=== PATIENT | female | born 1950 | race Caucasian/White ===

== ENCOUNTER 2020-08-04 08:11 | Outpatient (REF) | payer MEDICARE, SELFPAY ==
[2020-08-04 11:15] LABS: MANUAL DIFF FLAG NO
[2020-08-04 11:27] LABS: Basophils Absolute Auto 0.1 X10*3/uL (0.0-0.2); Basophils Percent Auto 0.7 % (0-2); Eosinophils Absolute Auto 0.2 X10*3/uL (0.0-0.4); Eosinophils Percent Auto 3.4 % (0-4); Hematocrit 42.6 % (37-47); Hemoglobin 13.7 g/dl (12.0-16.0); Imm Gran Abs Auto 0.01 X10*3/uL (0.00-0.03); Imm Gran Pct Auto 0.1 % (0.0-0.4); Lymphocytes Absolute Auto 3.2 X10*3/uL (1.2-4.9); Mean Corpuscular HGB Conc 32.2 g/dl (31.0-35.0); Mean Corpuscular Volume 93.2 fL (80-98); Mean Platelet Volume 10.5 fL (9.4-12.3); Monocytes Absolute Auto 0.6 X10*3/uL (0.1-1.2); Monocytes Percent Auto 8.3 % (2-11); Neutrophils Percent Auto 42.5 % (45-73); Platelet Count 200 X10*3/uL (160-400); Red Blood Count 4.57 X10*6/uL (4.20-5.50); Red Cell Distribution Width 12.4 % (11.0-16.0); White Blood Count 7.1 X10*3/uL (4.8-10.8)
[2020-08-04 11:53] LABS: Creatinine Urine 71.82 mg/dL; Microalbum/Creatinine Ratio Ur 27.8 ug/mg cr
[2020-08-04 12:01] LABS: Estimated Average Glucose 200 mg/dL; Hemoglobin A1c % 8.6 %
[2020-08-04 12:29] LABS: Alanine Aminotransferase 22 U/L (0-31); Albumin Level 4.1 g/dL (3.5-5.0); Alkaline Phosphatase 67 U/L (39-117); Anion Gap 14 (12-20); Aspartate Amino Transferase 21 U/L (5-31); Bilirubin Total 0.8 mg/dL (0.0-1.0); Blood Urea Nitrogen 20 mg/dL (9-16); Calcium 8.7 mg/dL (8.4-10.2); Carbon Dioxide 27 mmol/L (22-29); Chloride 106 mmol/L (96-108); Cholesterol 192 mg/dL; Estimated Glomerular Filt Rate 55; Glucose Fasting 188 mg/dL (60-99); HDL Cholesterol 57 mg/dL; LDL Cholesterol Calculated 104 mg/dl; Magnesium 1.8 mg/dL (1.6-2.6); Potassium 4.7 mmol/l (3.3-5.1); Sodium 142 mmol/L (135-145); Total Protein 6.9 g/dL (6.5-8.0); Triglycerides 158 mg/dL
== END 2020-08-04 08:12 | disposition home or self-care (01) ==
LOC: HO.HMGCLDS 08:11
PROVIDERS: PCP Internal Medicine; Visit Provider Internal Medicine
DX: E11.9 Type 2 diabetes mellitus without complications (principal); I10 Essential (primary) hypertension; E78.00 Pure hypercholesterolemia, unspecified
CPT/HCPCS: 36415; 80053; 80061; 82043; 83036; 83735; 85025

== ENCOUNTER 2020-09-25 11:20 | Outpatient (REF) | payer MEDICARE, SELFPAY ==
[2020-09-25 14:33] LABS: Estimated Average Glucose 220 mg/dL; Hemoglobin A1c % 9.3 %
[2020-09-25 14:58] LABS: Anion Gap 16 (12-20); Blood Urea Nitrogen 22 mg/dL (9-16); Calcium 9.5 mg/dL (8.4-10.2); Carbon Dioxide 27 mmol/L (22-29); Chloride 102 mmol/L (96-108); Estimated Glomerular Filt Rate 51; Glucose Random 219 mg/dL (60-115); Potassium 4.6 mmol/l (3.3-5.1); Sodium 140 mmol/L (135-145)
== END 2020-09-25 11:21 | disposition home or self-care (01) ==
LOC: HO.HMGCLDS 11:20
PROVIDERS: PCP Internal Medicine; Visit Provider Internal Medicine
DX: I12.9 Hypertensive chronic kidney disease with stage 1 through stage 4 chronic kidney disease, or unspecified chronic kidney disease (principal); E11.22 Type 2 diabetes mellitus with diabetic chronic kidney disease; N18.9 Chronic kidney disease, unspecified
CPT/HCPCS: 36415; 80048; 83036

== ENCOUNTER → 2021-02-23 09:24 | Outpatient (BNVA) | payer MEDICARE, SELFPAY | PROVIDERS: PCP Internal Medicine; Visit Provider Obstetrics & Gynecology | DX: N81.10 Cystocele, unspecified (principal) | CPT/HCPCS: 99202 ==

== ENCOUNTER 2021-03-01 08:10 | Outpatient (REF) | payer MEDICARE, SELFPAY ==
[2021-03-01 11:18] LABS: MANUAL DIFF FLAG NO
[2021-03-01 11:28] LABS: Basophils Absolute Auto 0.1 X10*3/uL (0.0-0.2); Basophils Percent Auto 1.1 % (0-2); Eosinophils Absolute Auto 0.3 X10*3/uL (0.0-0.4); Eosinophils Percent Auto 4.7 % (0-4); Hematocrit 44.1 % (37-47); Hemoglobin 14.2 g/dl (12.0-16.0); Imm Gran Abs Auto 0.01 X10*3/uL (0.00-0.03); Imm Gran Pct Auto 0.1 % (0.0-0.4); Lymphocytes Absolute Auto 3.2 X10*3/uL (1.2-4.9); Lymphocytes Percent Auto 43.8 % (20-40); Mean Corpuscular HGB Conc 32.2 g/dl (31.0-35.0); Mean Corpuscular Hemoglobin 29.3 pg (27.0-33.0); Mean Corpuscular Volume 91.1 fL (80-98); Mean Platelet Volume 10.8 fL (9.4-12.3); Monocytes Absolute Auto 0.6 X10*3/uL (0.1-1.2); Monocytes Percent Auto 8.3 % (2-11); Platelet Count 198 X10*3/uL (160-400); Red Blood Count 4.84 X10*6/uL (4.20-5.50); Red Cell Distribution Width 12.2 % (11.0-16.0); White Blood Count 7.2 X10*3/uL (4.8-10.8)
[2021-03-01 11:40] LABS: Estimated Average Glucose 278 mg/dL; Hemoglobin A1c % 11.3 %
[2021-03-01 11:56] LABS: Alanine Aminotransferase 18 U/L (0-31); Albumin Level 4.1 g/dL (3.5-5.0); Alkaline Phosphatase 86 U/L (39-117); Anion Gap 15 (12-20); Aspartate Amino Transferase 18 U/L (5-31); Bilirubin Total 0.7 mg/dL (0.0-1.0); Blood Urea Nitrogen 17 mg/dL (9-16); Calcium 9.4 mg/dL (8.4-10.2); Carbon Dioxide 26 mmol/L (22-29); Chloride 105 mmol/L (96-108); Cholesterol 191 mg/dL; Estimated Glomerular Filt Rate 51; Glucose Fasting 298 mg/dL (60-99); HDL Cholesterol 52 mg/dL; LDL Cholesterol Calculated 96 mg/dl; Sodium 141 mmol/L (135-145); Total Protein 6.8 g/dL (6.5-8.0); Triglycerides 215 mg/dL
[2021-03-01 12:06] LABS: Creatinine Urine 59.59 mg/dL; Microalbum/Creatinine Ratio Ur 53.7 ug/mg cr
== END 2021-03-01 08:11 | disposition home or self-care (01) ==
LOC: HO.HMGCLDS 08:10
PROVIDERS: PCP Internal Medicine; Visit Provider Internal Medicine
DX: I12.9 Hypertensive chronic kidney disease with stage 1 through stage 4 chronic kidney disease, or unspecified chronic kidney disease (principal); E11.22 Type 2 diabetes mellitus with diabetic chronic kidney disease; N18.9 Chronic kidney disease, unspecified
CPT/HCPCS: 36415; 80053; 80061; 82043; 83036; 85025

== ENCOUNTER → 2021-03-14 10:53 | Outpatient (BNVA) | payer MEDICARE, SELFPAY | PROVIDERS: PCP Internal Medicine | DX: N81.10 Cystocele, unspecified (principal) | CPT/HCPCS: 99202 ==

== ENCOUNTER 2021-05-04 10:01 | Outpatient (REF) | payer MEDICARE, SELFPAY ==
[2021-05-04 11:51] LABS: Estimated Average Glucose 200 mg/dL; Hemoglobin A1c % 8.6 %
[2021-05-04 12:20] LABS: Anion Gap 14 (12-20); Blood Urea Nitrogen 14 mg/dL (9-16); Calcium 9.1 mg/dL (8.4-10.2); Carbon Dioxide 24 mmol/L (22-29); Chloride 105 mmol/L (96-108); Estimated Glomerular Filt Rate 46; Glucose Random 235 mg/dL (60-115); Potassium 4.5 mmol/L (3.3-5.1); Sodium 138 mmol/L (135-145)
== END 2021-05-04 10:02 | disposition home or self-care (01) ==
LOC: HO.HMGCLDS 10:01
PROVIDERS: PCP Internal Medicine; Visit Provider Internal Medicine
DX: I12.9 Hypertensive chronic kidney disease with stage 1 through stage 4 chronic kidney disease, or unspecified chronic kidney disease (principal); N18.9 Chronic kidney disease, unspecified; E11.22 Type 2 diabetes mellitus with diabetic chronic kidney disease
CPT/HCPCS: 36415; 80048; 83036

== ENCOUNTER 2021-06-22 11:07 | Outpatient (REF) | payer MEDICARE, SELFPAY ==
[2021-06-22 13:49] LABS: MANUAL DIFF FLAG NO
[2021-06-22 13:54] LABS: Basophils Absolute Auto 0.1 X10*3/uL (0.0-0.2); Basophils Percent Auto 0.6 % (0-2); Eosinophils Absolute Auto 0.2 X10*3/uL (0.0-0.4); Eosinophils Percent Auto 2.5 % (0-4); Hematocrit 40.3 % (37-47); Hemoglobin 13.4 g/dl (12.0-16.0); Imm Gran Abs Auto 0.01 X10*3/uL (0.00-0.03); Imm Gran Pct Auto 0.1 % (0.0-0.4); Lymphocytes Absolute Auto 2.5 X10*3/uL (1.2-4.9); Lymphocytes Percent Auto 31.6 % (20-40); Mean Corpuscular HGB Conc 33.3 g/dl (31.0-35.0); Mean Corpuscular Hemoglobin 29.9 pg (27.0-33.0); Mean Platelet Volume 10.5 fL (9.4-12.3); Monocytes Absolute Auto 0.6 X10*3/uL (0.1-1.2); Monocytes Percent Auto 7.8 % (2-11); Neutrophils Absolute Auto 4.5 X10*3/uL (2.0-8.3); Neutrophils Percent Auto 57.4 % (45-73); Platelet Count 220 X10*3/uL (160-400); Red Blood Count 4.48 X10*6/uL (4.20-5.50); Red Cell Distribution Width 12.2 % (11.0-16.0); White Blood Count 7.9 X10*3/uL (4.8-10.8)
[2021-06-22 14:05] LABS: Anion Gap 14 (12-20); Blood Urea Nitrogen 15 mg/dL (9-16); Calcium 9.8 mg/dL (8.4-10.2); Carbon Dioxide 24 mmol/L (22-29); Chloride 108 mmol/L (96-108); Estimated Glomerular Filt Rate 53; Glucose Random 171 mg/dL (60-115); Potassium 4.5 mmol/L (3.3-5.1); Sodium 141 mmol/L (135-145)
[2021-06-22 14:19] LABS: Estimated Average Glucose 197 mg/dL; Hemoglobin A1c % 8.5 %
== END 2021-06-22 11:08 | disposition home or self-care (01) ==
LOC: HO.HMGCLDS 11:07
PROVIDERS: PCP Internal Medicine; Visit Provider Internal Medicine
DX: Z01.818 Encounter for other preprocedural examination (principal); E11.9 Type 2 diabetes mellitus without complications; I10 Essential (primary) hypertension
CPT/HCPCS: 36415; 80048; 83036; 85025

== ENCOUNTER 2021-11-28 08:04 | Outpatient (REF) | payer MEDICARE, SELFPAY ==
[2021-11-28 11:16] LABS: Appearance Urine CLEAR; Color Urine YELLOW; Glucose Urine UA 250 MG/DL (NEG); Leukocyte Esterase Urine NEG (NEG); Nitrite Urine NEG (NEG); Specific Gravity - Urine 1.015 (1.005-1.025); Urine Blood NEG (NEG); Urine Ketones NEG (NEG); Urine Protein NEG (NEG-TRACE)
[2021-11-28 11:25] LABS: MANUAL DIFF FLAG NO
[2021-11-28 11:40] LABS: Basophils Absolute Auto 0.1 X10*3/uL (0.0-0.2); Basophils Percent Auto 0.5 % (0-2); Eosinophils Absolute Auto 0.4 X10*3/uL (0.0-0.4); Eosinophils Percent Auto 4.2 % (0-4); Hematocrit 42.2 % (37.0-47.0); Hemoglobin 13.5 g/dl (12.0-16.0); Imm Gran Abs Auto 0.03 X10*3/uL (0.00-0.03); Imm Gran Pct Auto 0.3 % (0.0-0.4); Lymphocytes Absolute Auto 3.4 X10*3/uL (1.2-4.9); Lymphocytes Percent Auto 34.8 % (20-40); Mean Corpuscular Volume 90.8 fL (80.0-98.0); Mean Platelet Volume 10.5 fL (9.4-12.3); Monocytes Absolute Auto 0.9 X10*3/uL (0.1-1.2); Monocytes Percent Auto 9.3 % (2-11); Neutrophils Absolute Auto 4.9 x10*3/uL (2.0-8.3); Neutrophils Percent Auto 50.9 % (45-73); Platelet Count 227 X10*3/uL (160-400); Red Blood Count 4.65 X10*6/uL (4.20-5.50); Red Cell Distribution Width 12.1 % (11.0-16.0); White Blood Count 9.6 X10*3/uL (4.8-10.8)
[2021-11-28 12:02] LABS: Alanine Aminotransferase 19 U/L (0-31); Albumin Level 3.9 g/dL (3.5-5.0); Alkaline Phosphatase 98 U/L (39-117); Anion Gap 14 (12-20); Aspartate Amino Transferase 18 U/L (5-31); Bilirubin Total 0.4 mg/dL (0.0-1.0); Blood Urea Nitrogen 18 mg/dL (9-16); Calcium 9.5 mg/dL (8.4-10.2); Carbon Dioxide 24 mmol/L (22-29); Chloride 105 mmol/L (96-108); Cholesterol 159 mg/dL; Estimated Glomerular Filt Rate 48; Glucose Fasting 253 mg/dL (60-99); HDL Cholesterol 40 mg/dL; LDL Cholesterol Calculated 85 mg/dl; Potassium 4.6 mmol/L (3.3-5.1); Sodium 138 mmol/L (135-145); Total Protein 6.9 g/dL (6.5-8.0); Triglycerides 170 mg/dL
[2021-11-28 12:09] LABS: Estimated Average Glucose 255 mg/dL; Hemoglobin A1c % 10.5 %
[2021-11-28 12:27] LABS: Creatinine Urine 91.27 mg/dL; Microalbum/Creatinine Ratio Ur 26.2 ug/mg cr
== END 2021-11-28 08:05 | disposition home or self-care (01) ==
LOC: HO.HMGCLDS 08:04
PROVIDERS: PCP Internal Medicine; Visit Provider Internal Medicine
DX: E11.9 Type 2 diabetes mellitus without complications (principal); E78.00 Pure hypercholesterolemia, unspecified; I12.9 Hypertensive chronic kidney disease with stage 1 through stage 4 chronic kidney disease, or unspecified chronic kidney disease; N18.9 Chronic kidney disease, unspecified
CPT/HCPCS: 36415; 80053; 80061; 81003; 82043; 83036; 85025

== ENCOUNTER 2022-01-31 08:19 | Outpatient (REF) | payer MEDICARE, SELFPAY ==
[2022-01-31 11:49] LABS: Estimated Average Glucose 240 mg/dL
[2022-01-31 12:20] LABS: Alanine Aminotransferase 22 U/L (0-31); Albumin Level 3.8 g/dL (3.5-5.0); Alkaline Phosphatase 76 U/L (39-117); Anion Gap 11 (12-20); Aspartate Amino Transferase 21 U/L (5-31); Bilirubin Total 0.4 mg/dL (0.0-1.0); Blood Urea Nitrogen 15 mg/dL (9-16); Calcium 9.3 mg/dL (8.4-10.2); Carbon Dioxide 28 mmol/L (22-29); Chloride 106 mmol/L (96-108); Estimated Glomerular Filt Rate 54; Glucose Random 231 mg/dL (60-115); Sodium 140 mmol/L (135-145); Total Protein 6.6 g/dL (6.5-8.0)
== END 2022-01-31 08:20 | disposition home or self-care (01) ==
LOC: HO.HMGCLDS 08:19
PROVIDERS: PCP Internal Medicine; Visit Provider Internal Medicine
DX: I12.9 Hypertensive chronic kidney disease with stage 1 through stage 4 chronic kidney disease, or unspecified chronic kidney disease (principal); N18.9 Chronic kidney disease, unspecified; E11.22 Type 2 diabetes mellitus with diabetic chronic kidney disease
CPT/HCPCS: 36415; 80053; 83036

== ENCOUNTER 2022-03-29 09:59 | Outpatient (REF) | payer MEDICARE, SELFPAY ==
[2022-03-29 11:21] LABS: Estimated Average Glucose 220 mg/dL; Hemoglobin A1c % 9.3 %
[2022-03-29 11:28] LABS: Anion Gap 14 (12-20); Blood Urea Nitrogen 16 mg/dL (9-16); C Reactive Protein 0.44 mg/dL (< or = 0.50); Calcium 9.4 mg/dL (8.4-10.2); Carbon Dioxide 26 mmol/L (22-29); Chloride 104 mmol/L (96-108); Estimated Glomerular Filt Rate 46; Glucose Random 266 mg/dL (60-115); Potassium 4.9 mmol/L (3.3-5.1); Sodium 139 mmol/L (135-145)
[2022-03-29 12:22] LABS: Vitamin B12 564 pg/mL (200-900)
== END 2022-03-29 10:00 | disposition home or self-care (01) ==
LOC: HO.10HDL 09:59
PROVIDERS: Visit Provider Internal Medicine
DX: I12.9 Hypertensive chronic kidney disease with stage 1 through stage 4 chronic kidney disease, or unspecified chronic kidney disease (principal); N18.9 Chronic kidney disease, unspecified; E11.22 Type 2 diabetes mellitus with diabetic chronic kidney disease; G62.9 Polyneuropathy, unspecified
CPT/HCPCS: 36415; 80048; 82607; 83036; 86140

== ENCOUNTER 2022-08-19 14:11 | Outpatient (REF) | payer MEDICARE, SELFPAY ==
[2022-08-19 17:09] LABS: Estimated Average Glucose 212 mg/dL
[2022-08-19 17:10] LABS: Alanine Aminotransferase 20 U/L (0-31); Albumin Level 4.1 g/dL (3.5-5.0); Alkaline Phosphatase 80 U/L (39-117); Anion Gap 13 (12-20); Aspartate Amino Transferase 20 U/L (5-31); Bilirubin Total 0.6 mg/dL (0.0-1.0); Blood Urea Nitrogen 20 mg/dL (9-16); Calcium 9.7 mg/dL (8.4-10.2); Carbon Dioxide 28 mmol/L (22-29); Chloride 105 mmol/L (96-108); Estimated Glomerular Filt Rate 52; Glucose Random 169 mg/dL (60-115); Potassium 4.3 mmol/L (3.3-5.1); Sodium 142 mmol/L (135-145); Total Protein 6.9 g/dL (6.5-8.0)
[2022-08-19 17:39] LABS: Vitamin B12 688 pg/mL (200-900)
== END 2022-08-19 14:12 | disposition home or self-care (01) ==
LOC: HO.HMGCLDS 14:11
PROVIDERS: PCP Internal Medicine; Visit Provider Internal Medicine
DX: I12.9 Hypertensive chronic kidney disease with stage 1 through stage 4 chronic kidney disease, or unspecified chronic kidney disease (principal); E11.22 Type 2 diabetes mellitus with diabetic chronic kidney disease; N18.9 Chronic kidney disease, unspecified; G62.9 Polyneuropathy, unspecified
CPT/HCPCS: 36415; 80053; 82607; 83036

== ENCOUNTER 2022-10-03 10:03 | Outpatient (REF) | payer MEDICARE, SELFPAY ==
--- NOTE | ~2022-10-03 | XR_ITS ---
EXAMINATION: XR SHOULDER , RIGHT CLINICAL INFORMATION: Pain COMPARISON: None available at the time of this dictation. TECHNIQUE: AP external rotation, Grashey, scapular Y, and axillary views of the shoulder. FINDINGS: BONES: There is no fracture or dislocation, no osteolytic or osteoblastic lesion. JOINTS: Early advanced degenerative osteoarthritis of the glenohumeral joints evident by sclerotic changes of articular surfaces and developed osteophyte, There is mild degenerative osteoarthritis of the acromioclavicular joint. SOFT TISSUE AND INCLUDED LUNG: Normal. XR/XR shoulder RT min 2V IMPRESSION: * Early advanced degenerative osteoarthritis of the glenohumeral joint.
== END 2022-10-03 10:04 | disposition home or self-care (01) ==
LOC: HO.HMGCX 10:03
PROVIDERS: PCP Internal Medicine; Visit Provider Internal Medicine
DX: M25.511 Pain in right shoulder (principal)
CPT/HCPCS: 73030

== ENCOUNTER → 2022-11-01 08:53 | Outpatient (BNVA) | payer MEDICARE, SELFPAY | PROVIDERS: PCP Internal Medicine; Visit Provider Physician Assistant | DX: M19.011 Primary osteoarthritis, right shoulder (principal) | CPT/HCPCS: 99202 ==

== ENCOUNTER 2022-11-25 13:19 | Outpatient (REF) | payer MEDICARE, SELFPAY ==
--- NOTE | ~2022-11-25 | FL_ITS ---
EXAMINATION: FL ARTHROGRAM SHOULDER, RIGHT CLINICAL INFORMATION: Primary osteoarthritis right shoulder. COMPARISON: None available. TECHNIQUE: Following explaining right shoulder steroid injection procedure, benefits and risks, a written consent was obtained. Patient was placed supine on fluoroscopy table and optimal site was selected along the right anterior shoulder and marked with a marker. 1% lidocaine was injected at puncture site. A 22-gauge spinal needle was then inserted from the skin into the joint space and 2 mL of nonionic contrast was injected. Subsequently 80 mg of Depo-Medrol, 8 mL of 2% lidocaine and 1 mL of 0.25% Marcaine was injected and needle withdrawn. Complete hemostasis achieved at puncture site. Sterile Band-Aid applied postprocedure. Patient tolerated procedure extremely well. FINDINGS: There are no fractures or dislocations. No joint effusion is identified. No bone, joint or soft tissue abnormality is demonstrated. FLUOROSCOPY TIME: 0.6 minutes. DOSE AREA PRODUCT: 1.782 uGy-m2 (microgray-meter squared) FL/FL arthrogram shoulder RT IMPRESSION: Successful fluoroscopic-guided right shoulder steroid injection.
== END 2022-11-25 13:20 | disposition home or self-care (01) ==
LOC: HO.XRAY 13:19
PROVIDERS: PCP Internal Medicine; Visit Provider Physician Assistant
DX: M19.011 Primary osteoarthritis, right shoulder (principal)
CPT/HCPCS: 23350; 73040

== ENCOUNTER 2022-12-09 07:52 | Outpatient (REF) | payer MEDICARE, SELFPAY ==
[2022-12-09 11:25] LABS: MANUAL DIFF FLAG NO
[2022-12-09 11:34] LABS: Basophils Absolute Auto 0.1 X10*3/uL (0.0-0.2); Basophils Percent Auto 0.7 % (0-2); Eosinophils Absolute Auto 0.2 X10*3/uL (0.0-0.4); Hematocrit 43.7 % (37.0-47.0); Hemoglobin 14.1 g/dl (12.0-16.0); Imm Gran Abs Auto 0.04 X10*3/uL (0.00-0.03); Imm Gran Pct Auto 0.4 % (0.0-0.4); Lymphocytes Absolute Auto 3.6 X10*3/uL (1.2-4.9); Lymphocytes Percent Auto 38.1 % (20-40); Mean Corpuscular HGB Conc 32.3 g/dl (31.0-35.0); Mean Corpuscular Hemoglobin 29.8 pg (27.0-33.0); Mean Corpuscular Volume 92.4 fL (80.0-98.0); Mean Platelet Volume 10.6 fL (9.4-12.3); Monocytes Absolute Auto 0.7 X10*3/uL (0.1-1.2); Monocytes Percent Auto 7.5 % (2-11); Neutrophils Absolute Auto 4.9 x10*3/uL (2.0-8.3); Neutrophils Percent Auto 51.3 % (45-73); Platelet Count 232 X10*3/uL (160-400); Red Blood Count 4.73 X10*6/uL (4.20-5.50); Red Cell Distribution Width 12.1 % (11.0-16.0); White Blood Count 9.5 X10*3/uL (4.8-10.8)
[2022-12-09 11:59] LABS: Alanine Aminotransferase 25 U/L (0-31); Albumin Level 4.1 g/dL (3.5-5.0); Alkaline Phosphatase 90 U/L (39-117); Anion Gap 13 (12-20); Aspartate Amino Transferase 21 U/L (5-31); Bilirubin Total 0.7 mg/dL (0.0-1.0); Blood Urea Nitrogen 16 mg/dL (9-16); Calcium 9.6 mg/dL (8.4-10.2); Carbon Dioxide 28 mmol/L (22-29); Chloride 105 mmol/L (96-108); Cholesterol 171 mg/dL; Estimated Glomerular Filt Rate 49; Glucose Fasting 200 mg/dL (60-99); HDL Cholesterol 54 mg/dL; LDL Cholesterol Calculated 81 mg/dl; Potassium 4.6 mmol/L (3.3-5.1); Sodium 141 mmol/L (135-145); Total Protein 6.7 g/dL (6.5-8.0); Triglycerides 183 mg/dL
[2022-12-09 12:26] LABS: Creatinine Urine 62.86 mg/dL; Microalbum/Creatinine Ratio Ur 20.6 ug/mg cr
[2022-12-09 12:30] LABS: Estimated Average Glucose 203 mg/dL; Hemoglobin A1c % 8.7 %
== END 2022-12-09 07:53 | disposition home or self-care (01) ==
LOC: HO.HMGCLDS 07:52
PROVIDERS: PCP Internal Medicine; Visit Provider Internal Medicine
DX: Z00.00 Encounter for general adult medical examination without abnormal findings (principal); E11.9 Type 2 diabetes mellitus without complications
CPT/HCPCS: 36415; 80053; 80061; 82043; 83036; 85025

== ENCOUNTER → 2023-01-13 12:38 | Outpatient (BNVA) | payer MEDICARE, SELFPAY | PROVIDERS: PCP Internal Medicine; Visit Provider Physician Assistant | DX: M19.011 Primary osteoarthritis, right shoulder (principal) | CPT/HCPCS: 99212 ==

== ENCOUNTER 2023-03-26 08:18 | Outpatient (REF) | payer MEDICARE, SELFPAY ==
[2023-03-26 12:01] LABS: Estimated Average Glucose 174 mg/dL; Hemoglobin A1c % 7.7 %
[2023-03-26 12:34] LABS: Alanine Aminotransferase 16 U/L (0-31); Albumin Level 3.7 g/dL (3.5-5.0); Alkaline Phosphatase 84 U/L (39-117); Anion Gap 13 (12-20); Aspartate Amino Transferase 19 U/L (5-31); Bilirubin Total 0.4 mg/dL (0.0-1.0); Blood Urea Nitrogen 20 mg/dL (9-16); Calcium 9.8 mg/dL (8.4-10.2); Carbon Dioxide 24 mmol/L (22-29); Chloride 108 mmol/L (96-108); Estimated Glomerular Filt Rate 54; Glucose Random 148 mg/dL (60-115); Potassium 4.4 mmol/L (3.3-5.1); Sodium 141 mmol/L (135-145); Total Protein 6.4 g/dL (6.5-8.0)
== END 2023-03-26 08:19 | disposition home or self-care (01) ==
LOC: HO.HMGCLDS 08:18
PROVIDERS: PCP Internal Medicine; Visit Provider Internal Medicine
DX: E11.22 Type 2 diabetes mellitus with diabetic chronic kidney disease (principal); I12.9 Hypertensive chronic kidney disease with stage 1 through stage 4 chronic kidney disease, or unspecified chronic kidney disease; N18.9 Chronic kidney disease, unspecified
CPT/HCPCS: 36415; 80053; 83036

== ENCOUNTER 2023-06-25 12:37 | Outpatient (REF) | payer MEDICARE, SELFPAY ==
[2023-06-25 16:29] LABS: Estimated Average Glucose 146 mg/dL; Hemoglobin A1C 152.3228 umol/L; Hemoglobin A1c % 6.7 % (<6.0)
[2023-06-25 17:31] LABS: Alanine Aminotransferase 14 U/L (0-31); Albumin Level 4.1 g/dL (3.5-5.0); Alkaline Phosphatase 71 U/L (39-117); Anion Gap 15 (12-20); Aspartate Amino Transferase 20 U/L (5-31); Bilirubin Total 0.4 mg/dL (0.0-1.0); Blood Urea Nitrogen 19 mg/dL (9-16); Calcium 9.8 mg/dL (8.4-10.2); Carbon Dioxide 25 mmol/L (22-29); Chloride 107 mmol/L (96-108); Estimated Glomerular Filt Rate > 60; Glucose Random 126 mg/dL (60-115); Potassium 4.4 mmol/L (3.3-5.1); Sodium 143 mmol/L (135-145); Total Protein 7.1 g/dL (6.5-8.0)
[2023-06-25 17:32] LABS: Creatinine Urine 104.71 mg/dL; Microalbum/Creatinine Ratio Ur 29.6 ug/mg cr (<30)
== END 2023-06-25 12:38 | disposition home or self-care (01) ==
LOC: HO.HMGCLDS 12:37
PROVIDERS: PCP Internal Medicine; Visit Provider Internal Medicine
DX: I12.9 Hypertensive chronic kidney disease with stage 1 through stage 4 chronic kidney disease, or unspecified chronic kidney disease (principal); E11.22 Type 2 diabetes mellitus with diabetic chronic kidney disease; N18.9 Chronic kidney disease, unspecified
CPT/HCPCS: 36415; 80053; 82043; 82570; 83036

== ENCOUNTER 2023-07-03 10:47 | Outpatient (REF) | payer MEDICARE, SELFPAY ==
[2023-07-03 13:11] LABS: MANUAL DIFF FLAG NO
[2023-07-03 13:36] LABS: Basophils Absolute Auto 0.1 X10*3/uL (0.0-0.2); Eosinophils Absolute Auto 0.1 X10*3/uL (0.0-0.4); Hematocrit 40.6 % (37.0-47.0); Hemoglobin 13.3 g/dl (12.0-16.0); Imm Gran Abs Auto 0.02 X10*3/uL (0.00-0.03); Imm Gran Pct Auto 0.3 % (0.0-0.4); Lymphocytes Absolute Auto 2.5 X10*3/uL (1.2-4.9); Mean Corpuscular HGB Conc 32.8 g/dl (31.0-35.0); Mean Corpuscular Hemoglobin 30.2 pg (27.0-33.0); Mean Corpuscular Volume 92.3 fL (80.0-98.0); Mean Platelet Volume 9.7 fL (9.4-12.3); Monocytes Absolute Auto 0.5 X10*3/uL (0.1-1.2); Monocytes Percent Auto 7.6 % (2-11); Neutrophils Absolute Auto 3.8 x10*3/uL (2.0-8.3); Neutrophils Percent Auto 54.1 % (45-73); Platelet Count 231 X10*3/uL (160-400); Red Cell Distribution Width 12.3 % (11.0-16.0); White Blood Count 7.1 X10*3/uL (4.8-10.8)
== END 2023-07-03 10:48 | disposition home or self-care (01) ==
LOC: HO.10HDL 10:47
PROVIDERS: Visit Provider Internal Medicine
DX: Z01.818 Encounter for other preprocedural examination (principal)
CPT/HCPCS: 36415; 85025

== ENCOUNTER 2023-10-23 08:16 | Outpatient (REF) | payer MEDICARE, SELFPAY ==
[2023-10-23 11:35] LABS: MANUAL DIFF FLAG NO
[2023-10-23 11:42] LABS: Basophils Absolute Auto 0.1 X10*3/uL (0.0-0.2); Basophils Percent Auto 1.1 % (0-2); Eosinophils Absolute Auto 0.3 X10*3/uL (0.0-0.4); Eosinophils Percent Auto 4.3 % (0-4); Hematocrit 42.6 % (37.0-47.0); Hemoglobin 13.7 g/dl (12.0-16.0); Imm Gran Abs Auto 0.01 X10*3/uL (0.00-0.03); Imm Gran Pct Auto 0.1 % (0.0-0.4); Lymphocytes Absolute Auto 3.2 X10*3/uL (1.2-4.9); Lymphocytes Percent Auto 43.3 % (20-40); Mean Corpuscular HGB Conc 32.2 g/dl (31.0-35.0); Mean Corpuscular Hemoglobin 29.9 pg (27.0-33.0); Mean Platelet Volume 10.2 fL (9.4-12.3); Monocytes Absolute Auto 0.6 X10*3/uL (0.1-1.2); Monocytes Percent Auto 8.4 % (2-11); Neutrophils Absolute Auto 3.1 x10*3/uL (2.0-8.3); Neutrophils Percent Auto 42.8 % (45-73); Platelet Count 250 X10*3/uL (160-400); Red Blood Count 4.58 X10*6/uL (4.20-5.50); Red Cell Distribution Width 12.2 % (11.0-16.0); White Blood Count 7.3 X10*3/uL (4.8-10.8)
[2023-10-23 12:07] LABS: Estimated Average Glucose 146 mg/dL; Hemoglobin A1c % 6.7 % (<6.0)
[2023-10-23 12:14] LABS: Alanine Aminotransferase 18 U/L (0-31); Albumin Level 3.9 g/dL (3.5-5.0); Alkaline Phosphatase 72 U/L (39-117); Anion Gap 13 (12-20); Aspartate Amino Transferase 21 U/L (5-31); Bilirubin Total 0.6 mg/dL (0.0-1.0); Blood Urea Nitrogen 18 mg/dL (9-16); Calcium 9.5 mg/dL (8.4-10.2); Carbon Dioxide 27 mmol/L (22-29); Chloride 106 mmol/L (96-108); Cholesterol 158 mg/dL (<200); Estimated Glomerular Filt Rate > 60; Glucose Fasting 130 mg/dL (60-99); HDL Cholesterol 53 mg/dL (>40); LDL Cholesterol Calculated 85 mg/dL (<100); Potassium 4.6 mmol/L (3.3-5.1); Sodium 141 mmol/L (135-145); Total Protein 7.1 g/dL (6.5-8.0); Triglycerides 104 mg/dL (<150)
[2023-10-23 12:32] LABS: Creatinine Urine 98.66 mg/dL; Microalbum/Creatinine Ratio Ur 17.2 ug/mg cr (<30)
== END 2023-10-23 08:17 | disposition home or self-care (01) ==
LOC: HO.HMGCLDS 08:16
PROVIDERS: PCP Internal Medicine; Visit Provider Internal Medicine
DX: E11.9 Type 2 diabetes mellitus without complications (principal); I10 Essential (primary) hypertension; E78.00 Pure hypercholesterolemia, unspecified
CPT/HCPCS: 36415; 80053; 80061; 82043; 82570; 83036; 85025

== ENCOUNTER 2024-01-22 08:09 | Outpatient (REF) | payer MEDICARE, SELFPAY ==
[2024-01-22 10:51] LABS: Estimated Average Glucose 160 mg/dL; Hemoglobin A1c % 7.2 % (<6.0)
[2024-01-22 11:10] LABS: Alanine Aminotransferase 18 U/L (0-31); Albumin Level 3.9 g/dL (3.5-5.0); Alkaline Phosphatase 70 U/L (39-117); Anion Gap 15 (12-20); Aspartate Amino Transferase 23 U/L (5-31); Bilirubin Total 0.4 mg/dL (0.0-1.0); Blood Urea Nitrogen 18 mg/dL (9-16); Calcium 9.3 mg/dL (8.4-10.2); Carbon Dioxide 24 mmol/L (22-29); Chloride 107 mmol/L (96-108); Estimated Glomerular Filt Rate > 60; Glucose Random 144 mg/dL (60-115); Potassium 4.4 mmol/L (3.3-5.1); Sodium 142 mmol/L (135-145)
== END 2024-01-22 08:10 | disposition home or self-care (01) ==
LOC: HO.HMGCLDS 08:09
PROVIDERS: PCP Internal Medicine; Visit Provider Internal Medicine
DX: E11.9 Type 2 diabetes mellitus without complications (principal)
CPT/HCPCS: 36415; 80053; 83036

== ENCOUNTER 2024-04-30 10:55 | Outpatient (REF) | payer MEDICARE, SELFPAY ==
[2024-04-30 13:14] LABS: MANUAL DIFF FLAG NO
[2024-04-30 13:38] LABS: Basophils Absolute Auto 0.1 X10*3/uL (0.0-0.2); Basophils Percent Auto 0.8 % (0-2); Eosinophils Absolute Auto 0.2 X10*3/uL (0.0-0.4); Eosinophils Percent Auto 2.7 % (0-4); Hematocrit 41.5 % (37.0-47.0); Hemoglobin 13.6 g/dl (12.0-16.0); Imm Gran Abs Auto 0.01 X10*3/uL (0.00-0.03); Imm Gran Pct Auto 0.1 % (0.0-0.4); Lymphocytes Absolute Auto 2.6 X10*3/uL (1.2-4.9); Mean Corpuscular HGB Conc 32.8 g/dl (31.0-35.0); Mean Corpuscular Hemoglobin 30.4 pg (27.0-33.0); Mean Corpuscular Volume 92.8 fL (80.0-98.0); Mean Platelet Volume 9.8 fL (9.4-12.3); Monocytes Absolute Auto 0.6 X10*3/uL (0.1-1.2); Neutrophils Absolute Auto 3.9 x10*3/uL (2.0-8.3); Neutrophils Percent Auto 53.4 % (45-73); Platelet Count 212 X10*3/uL (160-400); Red Blood Count 4.47 X10*6/uL (4.20-5.50); Red Cell Distribution Width 12.5 % (11.0-16.0); White Blood Count 7.4 X10*3/uL (4.8-10.8)
[2024-04-30 13:58] LABS: Alanine Aminotransferase 16 U/L (0-31); Albumin Level 4.1 g/dL (3.5-5.0); Alkaline Phosphatase 70 U/L (39-117); Anion Gap 13 (12-20); Aspartate Amino Transferase 20 U/L (5-31); Bilirubin Total 0.4 mg/dL (0.0-1.0); Blood Urea Nitrogen 15 mg/dL (9-16); Calcium 9.4 mg/dL (8.4-10.2); Carbon Dioxide 27 mmol/L (22-29); Chloride 107 mmol/L (96-108); Estimated Glomerular Filt Rate 58; Glucose Random 133 mg/dL (60-115); Potassium 4.5 mmol/L (3.3-5.1); Sodium 142 mmol/L (135-145); Total Protein 7.1 g/dL (6.5-8.0)
[2024-04-30 14:03] LABS: Estimated Average Glucose 143 mg/dL; Hemoglobin A1c % 6.6 % (<6.0)
[2024-04-30 14:27] LABS: Creatinine Urine 151.19 mg/dL; Microalbum/Creatinine Ratio Ur 30.4 ug/mg cr (<30)
== END 2024-04-30 10:56 | disposition home or self-care (01) ==
LOC: HO.HMGCLDS 10:55
PROVIDERS: PCP Internal Medicine; Visit Provider Internal Medicine
DX: E11.9 Type 2 diabetes mellitus without complications (principal); I10 Essential (primary) hypertension; G25.81 Restless legs syndrome; G62.9 Polyneuropathy, unspecified; K21.9 Gastro-esophageal reflux disease without esophagitis
CPT/HCPCS: 36415; 80053; 82043; 82570; 83036; 85025

== ENCOUNTER 2024-05-12 10:15 | Outpatient (REF) | payer MEDICARE, SELFPAY ==
[2024-05-12 11:27] LABS: C Reactive Protein < 0.10 mg/dL (< or = 0.50); Lipase 54 U/L (8-78)
== END 2024-05-12 10:16 | disposition home or self-care (01) ==
LOC: HO.10HDL 10:15
PROVIDERS: Visit Provider Internal Medicine
DX: R10.9 Unspecified abdominal pain (principal)
CPT/HCPCS: 36415; 82550; 83690; 86140

== ENCOUNTER 2024-09-06 18:02 | Emergency (ER) | payer MEDICARE, SELFPAY ==
[2024-09-06] VITALS (7 sets, daily range): BP systolic 100–151; BP diastolic 57–79; PULSE 80–96; RESP 12–21; TEMP 36.4–37.4; O2SAT 96–99; BMI 26.6
--- NOTE | 2024-09-06 18:31 | ECG_ITS ---
Test Reason : SYNCOPE Blood Pressure : / mmHG Vent. Rate : 086 BPM Atrial Rate : 086 BPM P-R Int : 158 ms QRS Dur : 092 ms QT Int : 392 ms P-R-T Axes : 042 002 072 degrees QTc Int : 469 ms Normal sinus rhythm Normal ECG When compared with ECG of 05-JAN-2012 10:39, No significant change was found Referred By: Jose E Uribe Electronically Signed By:Curtis Sylvester
--- OUTSIDE RECORDS SUMMARY | 2024-09-06 18:38 | XMS_ITS ---
[facility] Address [address] [address] Care Team Providers Care Drop Tester Name Role Phone Maciel Wu MD Primary Care Provider Shahzad Cavazos Unavailable [phone] Allergies No Known Allergies REASON FOR VISIT Last PCP Visit: 01/28/24, Possible Infection Medications Medication SIG (Take, Route, Frequency, Duration) Notes Start Date End Date Status Multivitamin Unknown ZyrTEC Allergy 10 MG 1 tablet Orally Onc e a day Unknown Fluticasone Propionate 50 MCG/ACT 1 spray in each nostril Nasally Once a day Unknown Calcium 500 MG 1 tablet Orally Once a day Unknown Gabapentin 300 MG Orally Once a day Active glipiZIDE ER 2.5 MG Orally Active Simvastatin 10 MG 1 tab daily Orally O nce a day Active Doxycycline Monohydrate 100 MG 1 capsule Orally Once a day for 10 days 02/12/2024 Active metFORMIN HCl 500 MG 1tablet daily Orall y Once a day Active Lisinopril 20 MG 1 tablet Orally twic e daily Active Omeprazole 20 MG 1 capsule 30 minutes before morning meal Orally Once a day Active Aspirin 81 MG 1 tablet Orally Once a day Active Trulicity 3 MG/0.5ML as directed Subcutaneous Active Extra Depth Diabetic Shoes with 3 Pair Custom heat-molded multi-density innersoles for 1 year Dx: 02/19/2017 Unknown Ibuprofen 600 MG 1 tablet with food o r milk Orally Three times a day for 30 day(s) 2017 Unknown Eliquis 2.5 MG Orally twice a day Unknown Social History Tobacco Use: Social History Observation Description Date Details (start date - stop date) Never Smoker NA - NA Tobacco Use/Smoking Question Answer Notes Are you a: nonsmoker Additional Findings: Tobacco Non-User Current no n-smoker Alcohol Screen Question Answer Notes Did you have a drink containing alcohol in the p ast year? No Points 0 Interpretation Negative Tobacco use other than smoking: Question Answer Notes Are you an other tobacco user? No Vital Signs Height 5 ft 6 in in 02/12/2024 Weight 168 lbs 02/12/2024 BMI 27.11 kg/m2 02/12/2024 Procedures Procedure Date Ordered Date Performed Result Body [place] e [address] I&D ABSCESS- SIMPLE,SINGLE 02/12/2024 N/A Encounters Encounter Location Date Provider Diagnosis [facility] [address] [address] 02/12/2024 Shahzad Novoa Type 2 diabetes mellitus with diabetic polyneuropathy E11.42 ; Tinea unguium B35.1 ; Skin disease L98.9 ; Hallux valgus (acquired), right foot M20.11 ; Ingrowing nail L60.0 ; Abscess, toe, right L02.611 and Cellulitis of right toe L03.031 Assessments Encounter Date Diagnosis (ICD Code) Assessment Notes Treatment Notes Treatment Clinical Notes Section Notes 02/12/2024 Type 2 diabetes mellitus with diabetic polyneuropathy (ICD-10 - E11.42) 02/12/2024 Tinea unguium (ICD-10 - B35.1) 02/12/2024 Skin disease (ICD-10 - L98.9) 02/12/2024 Hallux valgus (acquired), right foot (ICD-10 - M20.11) 02/12/2024 Ingrowing nail (ICD-10 - L60.0) 02/12/2024 Abscess, toe, right (ICD-10 - L02.611) 02/12/2024 Cellulitis of right toe (ICD-10 - L03.031) Plan Of Treatment Medication Medication Name Sig Start Date Stop Date Notes Doxycycline Monohydrate 100 MG 1 capsule Orally Once a day for 10 days 02/12/2024 Pending Test Test Name Order Date 55082 I&D ABSCESS- SIMPLE,SINGLE 024 Next Appt Details Follow Up: 2 Weeks, Reason: Procedure Notes * Category Sub-Category Detail Notes Abscess incision and drainage Anesthesia 2% Lidocaine local anesthesic Location Medial nail border, T5 Procedure A fine sterile eleva tor was used to loosen the eponychium, nail bed, nail plate and groove. A sterile nail splinter was then used to longitudinally section the nail. This section was removed. Any infected, devitilized or granulation tissue was removed. No underlying bone was identified. Bacitracin and sterile dressings applied, local wound care instructions were dispensed. Patient was informed of both conservative and future surgical procedures to prevent recurrence Progress Notes * Tiffany LORDDOB: [birth year] (73 yo F)Acc No.[id number]:02/12/2024 Progress Note Patient:?Tiffany Lord Provider:?Shahzad Novoa DPM :1950???Age:73 Y???Sex:Female D ate:02/12/2024 Address:[address] [place], [place] [id number] Pcp:Maciel Wu MD Subjective: * Chief Complaints: * ??? Last PCP Visit: 01/28/24P ossible Infection * HPI: ???At Risk footcare:?Pt States Last PCP Visit:?Date?10/18/2023 ???Skin problems:?Nature:?tender, redness.?Location:?Right , 1st.?Duration:?a few months.?Onset/Cause:?unknown.?Course:?worse.?Aggravated by:?any pressure.?Treatments:?Topical abx.?Severity/Quality:?moderate, severe.? * ROS:?General/Constitutional:?Nausea?denies.?Vomiting?denies.?Hunger Thirst?denies.?Loss appetite?denies.?Chills?denies.?Fatigue?denies.?Fever?denies.?Night Sweats?denies.?Unexplained weight loss?denies.?Unexplained weight gain?denies.?HEENTM:?Dentures?admits.?Dizziness?denies.?Glasses/contacts?admits.?Retinopathy?de nies.?Blurred/double vision?denies.?TMJ?denies.?Discharge/drainage?denies.?Implants?denies.?Sore throat?denies.?Dental implants?denies.?Hard of hearing ?denies.?Difficulty chewing/swallowing/speaking?denies.?Nose bleeds?denies.?Sore mouth?denies.?Respiratory:?On Oxygen?denies.?Pneumonia/pleurisy?denies.?Bronchitis?denies.?Emphysema?denies.?C oughing?denies.?Cough blood?denies.?Shortness of breath?denies.?Wheezing?denies.?Cardiovascular:?Pacemaker?denies.?MVP?denies.?WPW?denies.?CHF?denies.?Heart attack?denies.?Septal defect?denies.?Rapid beat?denies.?Chest pain ?denies.?Atrial Fib.?denies.?Murmur/Palpitations?denies.?Gastrointestinal:?Hemorrhoids?denies.?Stomach/Abdominal pain?denies.?Dark blood stool?denies.?Irritable bowel ?denies.?Constipation?denies.?Diarrhea?denies.?Hematology:?Swelling?denies.?Clots?denies.?Varicose Veins?denies.?Bruising?denies.?Bleeding problem?denies.?Genitourinary:?Blood urine?denies.?Frequent/Painfu/urination/bladder control?denies.?Kidney stones?denies.?Infection (UTI)?denies.?Nephropathy?denies.?sex trans dis (STD)?denies.?Prostate?denies.?Musculoskeletal:?Hammertoes?denies.?Bunions?denies.?Back Pain?denies.?Muscle Cramps/ Resting?denies.?Muscle cramps / walking?denies.?Generalized aches and pains?admits.?Weakness?denies.?Integ.:?Hogan?denies.?Scars?admits.?Corns/calluses?denies.?Ingrown nails?denies.?Painful nails?denies.?Open Sores?denies.?Rashes?denies.?Neurologic:?Difficulty sleeping?denies.?Brain disorder?denies.?Numbness?denies.?Balance trouble?admits.?Confusion?denies.?Fainting/blackouts?denies.?Tingling?denies.?Tr emors?denies.? * Medical History:? * Surgical History:?back surge ry 1990rotator cuff, right 2003right knee arthroscopy 2008retinectomy, left eye 2009-2010HT R2nd toe 05/22/2017shoulder replacement ladder surgery 2020 * Hospitalization/Major Diagno stic Procedure:?Denies Past Hospitalization * Family History:?Mother: dece ased, foot problems, kidney liver disease, diagnosed with Unspecified essential hypertension, Unspecified heart disease, Diabetic - NIDDM.?Father: , diagnosed with Unspecified heart disease.?Siblings: foot problems, diagnosed with Other malignant neoplasm of unspecified site, Diabetic - NIDDM, Unspecified essential hypertension.?Maternal Grand Father: diagnosed with Diabetic - NIDDM, Other malignant neoplasm of unspecified site.?Maternal aunt: diagnosed with Unspecified essential hypertension.? * Social History:?Tobacco Use:?Tobacco Use/Smoking?Are you a:?nonsmoker ?Additional Findings: Tobacco Non-User?Current non-smoker ?Tobacco use other than smoking?Are you an other tobacco user??No ???Drugs/Alcohol:?Drugs?Have you used drugs other than those for medical reasons in the past 12 months??No ?Alcohol Screen?Did you have a drink containing alcohol in the past year??No ?Points?0 ?Interpretation?Negative ???Miscellaneous:?Caffeine: yes, Coffee 2 cups per day. ?Children: yes, 3 childbirths. ?Exercise: yes, walk, read, desiree. ?Marital status: . ?Occupation: Retired from [employer]. ???Household:?Caffeine: yes, Coffee 2 cups per day. ?Children: yes, 3 childbirths. ?Exercise: yes, walk, read, desiree. ?Marital status: . ?Occupation: Retired from [employer]. * Medications:?TakingAspirin 8 1 MG Tablet Chewable 1 tablet Orally Once a dayOmeprazole 20 MG Capsule Delayed Release 1 capsule 30 minutes before morning meal Orally Once a dayTrulicity 3 MG/0.5ML Solution Pen-injector as directed Subcutaneous Lisinopril 20 MG Tablet 1 tablet Orally twice dailySimvastatin 10 MG Tablet 1 tab daily Orally Once a daymetFORMIN HCl 500 MG Tablet 1tablet daily Orally Once a dayglipiZIDE ER 2.5 MG Tablet Extended Release 24 Hour Orally Gabapentin 300 MG Capsule Orally Once a dayTaking Aspirin 81 MG Tablet Chewable 1 tablet Orally Once a dayTaking Omeprazole 20 MG Capsule Delayed Release 1 capsule 30 minutes before morning meal Orally Once a dayTaking Trulicity 3 MG/0.5ML Solution Pen-injector as directed Subcutaneous Taking Lisinopril 20 MG Tablet 1 tablet Orally twice dailyTaking Simvastatin 10 MG Tablet 1 tab daily Orally Once a dayTaking metFORMIN HCl 500 MG Tablet 1tablet daily Orally Once a dayTaking glipiZIDE ER 2.5 MG Tablet Extended Release 24 Hour Orally Taking Gabapentin 300 MG Capsule Orally Once a dayUnknownFluticasone Propionate 50 MCG/ACT Suspension 1 spray in each nostril Nasally Once a dayCalcium 500 MG 1 tablet Orally Once a dayMultivitamin ZyrTEC Allergy 10 MG Tablet 1 tablet Orally Once a dayEliquis 2.5 MG Tablet Orally twice a dayExtra Depth Diabetic Shoes with 3 Pair Custom heat-molded multi-density innersoles for 1 year Dx:Ibuprofen 600 MG Tablet 1 tablet with food or milk Orally Three times a dayMedication List reviewed and reconciled with the patientUnknown Fluticasone Propionate 50 MCG/ACT Suspension 1 spray in each nostril Nasally Once a dayUnknown Calcium 500 MG 1 tablet Orally Once a dayUnknown Multivitamin Unknown ZyrTEC Allergy 10 MG Tablet 1 tablet Orally Once a dayUnknown Eliquis 2.5 MG Tablet Orally twice a dayUnknown Extra Depth Diabetic Shoes with 3 Pair Custom heat-molded multi-density innersoles for 1 year Dx:Unknown Ibuprofen 600 MG Tablet 1 tablet with food or milk Orally Three times a dayMedication List reviewed and reconciled with the patient * Allergies:?N.K.D.A.yes[Aller gies Verified] Objective: * Vitals:?Ht: 5 ft 6 in, Wt:16 8, BMI:27.11, Shoe size:10, BS:79. * ???Past Orders: ???Lab:HEMOGLOBIN A1C (GLYCO HEMOGLOBIN) (Order Date - 11/27/2023) (Collection Date - 10/16/2023) ? Value Reference Range ?HEMOGLOBIN A1C (HH) 6.7 * Examination: ???Ophthalmology Referral: ?DIABETES EYE EXAM?Abscess/infected nail: ?INSPECTION? Reveals nail incurvation, pain on palpation, groove laceration, inflammation, malodor, localized cellulitis, and purulent abscess with pre- operative size of approximately ( 1-2 ) mm square without exposed bone, Medial nail border, T5.?General Examination: ?GENERAL APPEARANCE:?pleasant, alert, well nourished, well developed, well hydrated, with good attention to hygene/body habitus, and in no acute distress.?ORIENTED:?person,place, and time.?Neurological: ?SENSORY:? Neurological exam demonstrates, reduced vibration sensation, 5.07 monofilament test performed at plantar aspects of 5 varied sites per foot shows sensation, reduced , B/L.?BABINSKI REFLEX:?absent.?Vascular: ?DP PULSES:?2/4, B/L.?PT PULSES:?2/4, B/L.?CAPILLARY FILL TIME:?3 secs. per digit, B/L.?SKIN TEMPERTURE GRADIENT OF THE LOWER EXTERMITIES:?warm to cool, proximal to distal, B/L.?HAIR GROWTH/TEXTURE/ELASTICITY/TURGOR:?normal, B/L.?PIGMENTATION:?normal, B/L.?EDEMA:?no edema, B/L.?TELANGECTASIA:?absent.?VARICOSITIES:?absent.?Dermatologic: ?SKIN FINDINGS:?Skin exam reveals normal texture, elasticity, and tugor. There are no masses. The interspaces are clear.?Orthopedic: ?MUSCLE STRENGTH:?5/5 all groups in a symmetrical fashion , B/L .?GAIT ABNORMALITY:?pronated, abducted, B/L .?BUNION:? Medially prominent 1st MPJ, RIGHT, Lateral tracking 1st MPJ incompletely reducible.? Assessment: * Assessment: 1.?Type 2 diabetes mellitus with diabetic polyneuropathy - E11.42?2.?Tinea unguium - B35.1?3.?Hallux valgus (acquired), right foot - M20.11?4.?Skin disease - L98.9 (Primary)?5.?Ingrowing nail - L60.0?6.?Abscess, toe, right - L02.611?7. Cellulitis of right toe - L03.031? Plan: * Treatment: 2.?Cellulitis of right toe? Start Doxycycline Monohydrate Capsule, 100 MG, 1 capsule, Orally, Once a day, 10 days, 10 Capsule, Refills 0.?? * Procedures:?Abscess incision and drainage:?Location?Medial nail border, T5.?Anesthesia?2% Lidocaine local anesthesic.?Procedure?A fine sterile elevator was used to loosen the eponychium, nail bed, nail plate and groove. A sterile nail splinter was then used to longitudinally section the nail. This section was removed. Any infected, devitilized or granulation tissue was removed. No underlying bone was identified. Bacitracin and sterile dressings applied, local wound care instructions were dispensed. Patient was informed of both conservative and future surgical procedures to prevent recurrence.? * Procedure Codes:?21361 DRAIN AGE OF SKIN ABSCESS, Modifiers: T5 * Preventive Medicine:? ??Counseling:?Discussion:?-14: Office or other outpatient visit for the evaluation and management of an established patient, which required a medically appropriate history and/or examination and MODERATE level of DECISION MAKING for: 1 OR MORE CHRONIC PROBLEM(S) THATS WORSENING, 2 STABLE CHRONIC PROBLEMS, A NEWLY DIAGNOSED PROBLEM WITH UNCERTAIN PROGNOSIS, AN ACUTE COMPLICATED INJURY WITH MULTIPLE TREATMENT OPTIONS, OR AN ACUTE PROBLEM WITH ACCOMPANYING SYSTEMIC SYMPTOMS, THAT POSE(S) A MODERATE RISK OF MORBIDITY. THIS CONDITION MAY ALSO INCLUDE RX DRUG MANAGEMENT, OR A DECISON FOR MINOR SURGERY. The visit on the day of the encounter encompassed interpreting the data and educating the patient as to the nature of their condition, treatment options available according to their individual PMH, meds, allergies, and overall health/living conditions, as well as any potential risks or complications that may occur from a failure to adhere to, and participate in, the recommended course of therapy. The discussion included a complete verbal, and/or written explanation of the examination results, any x-rays taken, the proposed diagnosis, and outline of the treatment plan. A schedule for future care needs was also explained. The patient verbalized an understanding of the instructions at this time and agreed to be an active participant in their treatment. If the patient should think of any questions or concerns after the visit, I have encouraged the patient to call the office.?Cellulitis/Lymphangitis?The Pt. was counseled on the diagnosis, etiology, treatment options, and importance for adherence to recommendations regarding the treatment for Cellulitis/Lymphangitis. Abx were Rxed to address the cellulitis. The advantages and disadvantages of an antibiotic medication, along with its side effects, were discussed with the patient to their comprehended satisfaction. Patient questions re: use, dosage, and possible pharmacutical interactions were reviewed and the answers clearly understood. If the condition should worsen while taking the antibiotics as directed, it was recommeded that the patient call the office immediately or seek emergency medical care. The patient verbally confirmed a full understanding of the above information, Rxed Abx.? * Follow Up:?2 Weeks * Images: * Sign off status: Completed true * Provider:?Shahzad Novoa DPM Date:? 024 Generated for Merle meyer/Lisette/Prakash on:?09/06/2024 06:38 PM EST History and Physical Notes * HPI (History of Present Illness) Category Sub-Category Detail Notes Category Not es Skin problems Nature: tender, redness Location: Right , 1st Duration: a few months Onset/Cause: unknown Course: worse Aggravated by: any pressure Treatments: Topical abx Severity/Quality: moderate, severe At Risk footcare Pt States Last PCP Visit: Date: 4 Examination Category Sub-Category Detail Notes Category Not es Neurological SENSORY: Neurological exa m demonstrates, reduced vibration sensation, 5.07 monofilament test performed at plantar aspects of 5 varied sites per foot shows sensation, reduced , B/L BABINSKI REFLEX: absent Dermatologic SKIN FINDINGS: Skin exam reveal s normal texture, elasticity, and tugor. There are no masses. The interspaces are clear Orthopedic GAIT ABNORMALITY: pronated, abducted, B/L BUNION: Medially prominent 1 st MPJ, RIGHT, Lateral tracking 1st MPJ incompletely reducible MUSCLE STRENGTH: 5/5 all groups in a symmetrical fashion , B/L General Examination GENERAL APPEARANCE: pleasant , alert, well nourished, well developed, well hydrated, with good attention to hygene/body habitus, and in no acute distress ORIENTED: person,place, and ti me Ophthalmology Referral DIABETES EYE EXAM Diabetic Retinopa thy Screening:: No Findings of Diabetic Eye Exam:: no retin opathy Vascular DP PULSES (B): 2/4, B/L PT PULSES (B): 2/4, B/L CAPILLARY FILL TIME: 3 secs. per digit, B/L TEMPERTURE GRADIENT (C): warm to cool, p roximal to distal, B/L TROPHIC CONDITION-TEXTURE/ELASTICITY/TURGOR/HAIR GROWTH (B): normal, B/L EDEMA (C): no edema, B/L TELANGECTASIA: absent VARICOSITIES: absent PIGMENTATION: normal, B/L Abscess/infected nail INSPECTION Reveals na il incurvation, pain on palpation, groove laceration, inflammation, malodor, localized cellulitis, and purulent abscess with pre-operative size of approximately ( 1-2 ) mm square without exposed bone, Medial nail border, T5
--- OUTSIDE RECORDS SUMMARY | 2024-09-06 18:38 | XMS_ITS ---
Author Organization [facility] Address [address] [place] [address] Care Team Providers Care Slate Handler Name Role Phone Maciel Wu MD Primary Care Provider Shahzad Cavazos Unavailable [phone] Allergies No Known Allergies REASON FOR VISIT Last PCP Visit: 01/28/24, Possible Infection, Ulcer(s) Medications Medication SIG (Take, Route, Frequency, Duration) Notes Start Date End Date Status Doxycycline Monohydrate 100 MG 1 capsule Orally Once a day for 10 days Active Lisinopril 20 MG 1 tablet Orally twic e daily Active Omeprazole 20 MG 1 capsule 30 minutes before morning meal Orally Once a day Active Trulicity 3 MG/0.5ML as directed Subcutaneous Active Aspirin 81 MG 1 tablet Orally Once a day Active Ibuprofen 600 MG 1 tablet with food o r milk Orally Three times a day for 30 day(s) 2017 Unknown Eliquis 2.5 MG Orally twice a day Unknown Extra Depth Diabetic Shoes with 3 Pair Custom heat-molded multi-density innersoles for 1 year Dx: 02/19/2017 Unknown ZyrTEC Allergy 10 MG 1 tablet Orally Onc e a day Unknown Multivitamin Unknown Fluticasone Propionate 50 MCG/ACT 1 spray in each nostril Nasally Once a day Unknown glipiZIDE ER 2.5 MG Orally Active Gabapentin 300 MG Orally Once a day Active metFORMIN HCl 500 MG 1tablet daily Orall y Once a day Active Calcium 500 MG 1 tablet Orally Once a day Unknown Simvastatin 10 MG 1 tab daily Orally O nce a day Active Social History Tobacco Use: Social History Observation [...] Are you an other tobacco user? No Problems Problem Type SNOMED Code ICD Code Onset Dates Problem Status W/U Status Risk Notes Problem Non-pressure chronic ulcer of other part of right foot limited to breakdown of skin (L97.511) Active confirmed Vital Signs Height 5ft6in in 02/26/2024 Weight 165 lbs 02/26/2024 BMI 26.63 kg/m2 02/26/2024 Encounters Encounter Location Date Provider Diagnosis [facility] [place] [address] [place] [address] 02/26/2024 Shahzad Novoa Type 2 diabetes mellitus with diabetic polyneuropathy E11.42 ; Tinea unguium B35.1 ; Skin disease L98.9 ; Hallux valgus (acquired), right foot M20.11 and Non-pressure chronic ulcer of other part of right foot limited to breakdown of skin L97.511 Assessments Encounter Date Diagnosis (ICD Code) Assessment Notes Treatment Notes Treatment Clinical Notes Section Notes 02/26/2024 Type 2 diabetes mellitus with diabetic polyneuropathy (ICD-10 - E11.42) 02/26/2024 Tinea unguium (ICD-10 - B35.1) 02/26/2024 Skin disease (ICD-10 - L98.9) 02/26/2024 Hallux valgus (acquired), right foot (ICD-10 - M20.11) 02/26/2024 Non-pressure chronic ulcer of other part of right foot limited to breakdown of skin (ICD-10 - L97.511) Plan Of Treatment Medication Medication Name Sig Start Date Stop Date Notes Doxycycline Monohydrate 100 MG 1 capsule Orally Once a day for 10 days Next Appt Details Follow Up: prn, Reason: Procedure Notes * Category Sub-Category Detail Notes Debride skin< 25 sq cm Open wound Open woun d selective debridement of fibrin, devitilized epidermis and/or dermis, exudate, using sterile sharp dissection, without use of anesthesia, with/without topical applications, wound assessment and instructions for ongoing care, Wound Care, The patient was instructed on importance of proper wound care consisting of pressure reduction, maintainance of moist wound environment, and regular debridement of devitilized tissue , The patient is to cleanse the wound with warm soapy water/peroxide/saline or betadine BID based on product availability , The patient is to apply Antibiotic Oint. to the wound and cover with a DSD , The patient was instructed to change dressings according to orders or PRN saturation, leaks, The patient was instructed to monitor and report any signs or symptoms of infection or any untoward reactions (50189) Progress Notes * Tiffany LORDDOB: [birth year] (73 yo F)Acc No.[id number]:02/26/2024 Progress Notes Patient:?Tiffany Lord Provider:?Shahzad Novoa DPM :1950???Age:73 Y???Sex:Female D ate:02/26/2024 Address:[address] [place], [place] [id number] Pcp:Maciel Wu MD Subjective: * Chief Complaints: * ???Last PCP Visit: 01/28/24Po ssible InfectionUlcer(s) * HPI: ???At Risk footcare:?Pt States Last PCP Visit:?Date?10/18/2023 ???Skin problems:?Nature:?tender, redness.?Location:?Right , [facility].?Duration:?a few months.?Onset/Cause:?unknown.?Course:?improved.?Aggravated by:?any pressure.? * ROS:?General/Constitutional:?Nausea?denies.?Vomiting?denies.?Hunger Thirst?denies.?Loss appetite?denies.?Chills?denies.?Fatigue?denies.?Fever?denies.?Night Sweats?denies.?Unexplained weight loss?denies.?Unexplained weight gain?denies.?HEENTM:?Dentures?admits.?Dizziness?denies.?Glasses/contacts?admits.?Retinopathy?de nies.?Blurred/double vision?denies.?TMJ?denies.?Discharge/drainage?denies.?Implants?denies.?Sore throat?denies.?Dental implants?denies.?Hard of hearing ?denies.?Difficulty chewing/swallowing/speaking?denies.?Nose bleeds?denies.?Sore mouth?denies.?Respiratory:?On Oxygen?denies.?Pneumonia/pleurisy?denies.?Bronchitis?denies.?Emphysema?denies.?C oughing?denies.?Cough blood?denies.?Shortness of breath?denies.?Wheezing?denies.?Cardiovascular:?Pacemaker?denies.?MVP?denies.?WPW?denies.?CHF?denies.?Heart attack?denies.?Septal defect?denies.?Rapid beat?denies.?Chest pain ?denies.?Atrial Fib.?denies.?Murmur/Palpitations?denies.?Gastrointestinal:?Hemorrhoids?denies.?Stomach/Abdominal pain?denies.?Dark blood stool?denies.?Irritable bowel ?denies.?Constipation?denies.?Diarrhea?denies.?Hematology:?Swelling?denies.?Clots?denies.?Varicose Veins?denies.?Bruising?denies.?Bleeding problem?denies.?Genitourinary:?Blood urine?denies.?Frequent/Painfu/urination/bladder control?denies.?Kidney stones?denies.?Infection (UTI)?denies.?Nephropathy?admits.?sex trans dis (STD)?denies.?Prostate?denies.?Musculoskeletal:?Hammertoes?denies.?Bunions?denies.?Back Pain?denies.?Muscle Cramps/ Resting?denies.?Muscle cramps / walking?denies.?Generalized aches and pains?admits.?Weakness?denies.?Integ.:?Hogan?denies.?Scars?admits.?Corns/calluses?denies.?Ingrown nails?denies.?Painful nails?denies.?Open Sores?denies.?Rashes?denies.?Neurologic:?Difficulty sleeping?denies.?Brain disorder?denies.?Numbness?denies.?Balance trouble?admits.?Confusion?denies.?Fainting/blackouts?denies.?Tingling?denies.?Tr emors?denies.? * Medical History:? * Surgical History:?back surge ry 1990rotator cuff, right 2003right knee arthroscopy 2008retinectomy, left eye 2009-2010HT R2nd toe 05/22/2017shoulder replacement ladder surgery 2020 * Hospitalization/Major Diagno stic Procedure:?Denies Past Hospitalization * Family History:?Mother: dece ased, foot problems, kidney liver disease, diagnosed with Diabetic - NIDDM, Unspecified essential hypertension, Unspecified heart disease.?Father: , diagnosed with Unspecified heart disease.?Siblings: foot problems, diagnosed with Diabetic - NIDDM, Unspecified essential hypertension, Other malignant neoplasm of unspecified site.?Maternal Grand Father: diagnosed with Diabetic - NIDDM, [...] desiree. ?Marital status: . ?Occupation: Retired from [employer]. * Medications:?TakingAspirin 8 1 MG Tablet Chewable [...] Gabapentin 300 MG Capsule Orally Once a dayNot-Taking/PRNDoxycycline Monohydrate 100 MG Capsule 1 capsule Orally Once a dayNot-Taking/PRN Doxycycline Monohydrate 100 MG Capsule 1 capsule Orally Once a dayUnknownFluticasone Propionate 50 MCG/ACT [...] * Allergies:?N.K.D.A.yes[Aller gies Verified] Objective: * Vitals:?Ht: 5ft6in, Wt:165, BMI:26.63, Shoe size: 10, Ht-cm: 167.64 cm, Wt-k.84 kg. * Examination: ???Ophthalmology Referral: ?DIABETES EYE EXAM?General Examination: ?GENERAL APPEARANCE:?pleasant, alert, well nourished, well [...] There are no masses. The interspaces are clear.?ULCER:? LOCATION--dorsum t5, SIZE, 4mm X 4mm X 2mm, BASE, fibrogranular, RIM, hyperkeratotic, UNDERMINING, absent, TRACKING, Full thickness breakdown of skin,NECROTIC TISSUE, loosely-adherent,yellow slough DRAINAGE, serous, mild, MALODOR, absent, CALOR, absent, ERYTHEMA, mild-resolving, PAIN ON PALPATION, absent.?Orthopedic: ?MUSCLE STRENGTH:?5/5 all groups in a symmetrical fashion , B/L .?GAIT ABNORMALITY:?pronated, abducted, B/L .?BUNION:? Medially prominent 1st MPJ, RIGHT, Lateral tracking 1st MPJ incompletely reducible.? Assessment: * Assessment: 1.?Type 2 diabetes mellitus with diabetic polyneuropathy - E11.42?2.?Tinea unguium - B35.1?3.?Skin disease - L98.9 (Primary)?4.?Hallux valgus (acquired), right foot - M20.11?5.?Non-pressure chronic ulcer of other part of right foot limited to breakdown of skin - L97.511? Plan: * Treatment: * Procedures:?Debride skin< 25 sq cm:?Open wound?Open wound selective debridement of fibrin, devitilized epidermis and/or dermis, exudate, using sterile sharp dissection, without use of anesthesia, with/without topical applications, wound assessment and instructions for ongoing care, Wound Care, The patient was instructed on importance of proper wound care consisting of pressure reduction, maintainance of moist wound environment, and regular debridement of devitilized tissue , The patient is to cleanse the wound with warm soapy water/peroxide/saline or betadine BID based on product availability , The patient is to apply Antibiotic Oint. to the wound and cover with a DSD , The patient was instructed to change dressings according to orders or PRN saturation, leaks, The patient was instructed to monitor and report any signs or symptoms of infection or any untoward reactions (00082).? * Procedure Codes:?21918 ACTIV E WOUND CARE/20 CM OR < * Follow Up:?prn * Images: * Sign off status: Completed true * Provider:?Shahzad Novoa DPM Date:? 024 Generated for Merle meyer/Lisette/Prakash on:?09/06/2024 06:38 PM EST History and Physical Notes * HPI (History of Present Illness) Category Sub-Category Detail Notes Category Not es Skin problems Nature: tender, redness Location: Right , 1st Duration: a few months Onset/Cause: unknown Course: improved Aggravated by: any pressure At Risk footcare Pt States Last PCP [...] are no masses. The interspaces are clear ULCER: LOCATION--dorsum t5, SIZE, 4mm X 4mm X 2mm, BASE, fibrogranular, RIM, hyperkeratotic, UNDERMINING, absent, TRACKING, Full thickness breakdown of skin,NECROTIC TISSUE, loosely-adherent,yellow slough DRAINAGE, serous, mild, MALODOR, absent, CALOR, absent, ERYTHEMA, mild-resolving, PAIN ON PALPATION, absent Orthopedic GAIT ABNORMALITY: pronated, abducted, B/L BUNION: [...] DIABETES EYE EXAM Diabetic Retinopa thy Screening:: Yes Findings of Diabetic Eye Exam:: no retin opathy Vascular DP PULSES (B): 2/4, B/L PT PULSES (B): 2/4, B/L CAPILLARY FILL TIME: 3 secs. per digit, B/L TEMPERTURE GRADIENT (C): warm to cool, p roximal to distal, B/L TROPHIC CONDITION-TEXTURE/ELASTICITY/TURGOR/HAIR GROWTH (B): normal, B/L EDEMA (C): no edema, B/L TELANGECTASIA: absent VARICOSITIES: absent PIGMENTATION: normal, B/L
--- OUTSIDE RECORDS SUMMARY | 2024-09-06 18:38 | XMS_ITS ---
Author Organization [facility] Address [address] [place] [address] Care Team Providers Care Button Attaching Machine Operator Name Role Phone Maciel Wu MD Primary Care Provider Shahzad Cavazos [phone] REASON FOR VISIT BUY Betadine Encounters Encounter Location Date Provider Diagnosis [facility] [address] [place] [address] 02/26/2024 Shahzad Novoa Plan Of Treatment No Information Progress Notes * Tiffany LORDDOB: 8 (73 yo F)Acc No.[id number]:02/26/2024 Patient:?Tiffany Lord :1950???Age:73 Y???Sex:Female Address: [place], [address] * true * Date:? Generated for Printi ng/Fayordang/eTransmitting on:?09/06/2024 06:37 PM EST
--- OUTSIDE RECORDS SUMMARY | 2024-09-06 18:39 | XMS_ITS | Patient Health Record ---
Author Organization [facility] [place] Address [address] [facility] [place] [address] Care Team Providers Care Bicycle Subassembler Name Role Phone Maciel Wu MD Primary Care Provider Shahzad Cavazos Unavailable [phone] Allergies No Known Allergies Results Component Value Reference Range Notes HEMOGLOBIN A1C (GLYCOHEMOGLO BIN) Reviewed date:11/27/2023 09:31:01 AM Interpretation: Performing Lab: Notes/Report: HEMOGLOBIN A1C (HH) 6.7 Reason For Referral No Information Medications Medication SIG (Take, Route, Frequency, Duration) Notes Start Date End Date Status Doxycycline Monohydrate 100 MG 1 capsule Orally Once a day for 10 days Active Omeprazole 20 MG 1 capsule 30 minutes before morning meal Orally Once a day Active ZyrTEC Allergy 10 MG 1 tablet Orally Onc e a day Unknown Trulicity 3 MG/0.5ML as directed Subcutaneous Active Calcium 500 MG 1 tablet Orally Once a day Unknown Aspirin 81 MG 1 tablet Orally Once a day Active Multivitamin Unknown Fluticasone Propionate 50 MCG/ACT 1 spray in each nostril Nasally Once a day Unknown glipiZIDE ER 2.5 MG Orally Active Gabapentin 300 MG Orally Once a day Active Simvastatin 10 MG 1 tab daily Orally O nce a day Active Ibuprofen 600 MG 1 tablet with food o r milk Orally Three times a day for 30 day(s) 2017 Unknown metFORMIN HCl 500 MG 1tablet daily Orall y Once a day Active Eliquis 2.5 MG Orally twice a day Unknown Lisinopril 20 MG 1 tablet Orally twic e daily Active Extra Depth Diabetic Shoes with 3 Pair Custom heat-molded multi-density innersoles for 1 year Dx: 02/19/2017 Unknown Immunizations Vaccine Route Administration Date Status Comme nts Influenza Unknown 07/16/2016 Administered Influenza Unknown 08/15/2017 Administered Influenza Unknown 07/16/2023 Administered Social History Tobacco Use: Social History Observation [...] Problem Status W/U Status Risk Notes Problem Localized, primary osteoarthritis of the ankle and/or foot (186954098) Primary osteoarthritis, right ankle and foot (M19.071) Active confirmed Problem Acquired hallux valgus (20418850) Hallux valgus (acquired), right foot (M20.11) Active confirmed Problem Non-pressure chronic ulcer of other part of right foot limited to breakdown of skin (L97.511) Active confirmed Problem Acquired hammer toe of right foot (0161694455849044 ) Other hammer toe(s) (acquired), right foot (M20.41) Active confirmed Problem Polyneuropathy due to type 2 diabetes mellitus (153268525) Type 2 diabetes mellitus with diabetic polyneuropathy (E11.42) Active confirmed Vital Signs Height 5ft6in in 02/26/2024 Weight 165 lbs 02/26/2024 BMI 26.63 kg/m2 02/26/2024 Procedures Procedure Date Ordered Date Performed Result Body [place] e [address] I&D ABSCESS- SIMPLE,SINGLE 02/12/2024 N/A Encounters Encounter Location Date Provider Diagnosis [facility] [address] [address] 11/27/2023 Shahzad Novoa Type 2 diabetes mellitus with diabetic polyneuropathy E11.42 ; Tinea unguium B35.1 ; Skin disease L98.9 ; Hallux valgus (acquired), right foot M20.11 and Ingrowing nail L60.[address] [facility] [address] 02/12/2024 ShahzadStevens Type 2 diabetes mellitus with diabetic polyneuropathy E11.42 ; Tinea unguium B35.1 ; Skin disease L98.9 ; Hallux valgus (acquired), right foot M20.11 ; Ingrowing nail L60.0 ; Abscess, toe, right L02.611 and Cellulitis of right toe L03.[address] [address] 02/26/2024 Shahzad Novoa Type 2 diabetes mellitus with diabetic polyneuropathy E11.42 ; Tinea unguium B35.1 ; Skin disease L98.9 ; Hallux valgus (acquired), right foot M20.11 and Non-pressure chronic ulcer of other part of right foot limited to breakdown of skin L97.[address] [address] [facility] [address] [facility] [address] [place] [address] 02/11/[address] [address] 02/26/2024 Shahzad Bright Assessments Encounter Date Diagnosis (ICD Code) Assessment Notes Treatment Notes Treatment Clinical Notes Section Notes 11/27/2023 Type 2 diabetes mellitus with diabetic polyneuropathy (ICD-10 - E11.42) 02/12/2024 Type 2 diabetes mellitus with diabetic polyneuropathy (ICD-10 - E11.42) 02/26/2024 Type 2 diabetes mellitus with diabetic polyneuropathy (ICD-10 - E11.42) 02/26/2024 Tinea unguium (ICD-10 - B35.1) 02/12/2024 Tinea unguium (ICD-10 - B35.1) 11/27/2023 Tinea unguium (ICD-10 - B35.1) 11/27/2023 Hallux valgus (acquired), right foot (ICD-10 - M20.11) 02/12/2024 Hallux valgus (acquired), right foot (ICD-10 - M20.11) 02/12/2024 Skin disease (ICD-10 - L98.9) 11/27/2023 Skin disease (ICD-10 - L98.9) 02/26/2024 Skin disease (ICD-10 - L98.9) 02/26/2024 Hallux valgus (acquired), right foot (ICD-10 - M20.11) 02/26/2024 Non-pressure chronic ulcer of other part of right foot limited to breakdown of skin (ICD-10 - L97.511) 02/12/2024 Ingrowing nail (ICD-10 - L60.0) 11/27/2023 Ingrowing nail (ICD-10 - L60.0) 02/12/2024 Abscess, toe, right (ICD-10 - L02.611) 02/12/2024 Cellulitis of right toe (ICD-10 - L03.031) Plan Of Treatment Pending Test Test Name Order Date X ray : Foot, right 2V 05/26/2017 X ray : Foot, right 2V 06/09/2017 X ray : Foot, right 2V 07/10/2017 X ray : Foot, right 3V 02/19/2017 94914 I&D ABSCESS- SIMPLE,SINGLE 024 [address]66-[place], Toes 07/10/2017 Insurance Providers Payer Name Payer Address Payer Phone Subscriber Number Group Number Insured Name Patient Relationship to Insured Coverage Start Date Coverage End Date [employer] [address] [place] [address] [phone] [id number] Tiffany Guadarrama Self - patient is the insured Medical (General) History Medical History History ICD Code Back,Hip,and Knee pain Cholesterol Cataracts type II diabetes High blood pressure Neuropathy Measles Mumps Chicken pox Joint implants/screws Arthritis Numbness Surgical History Surgery Date(Month/Year) back surgery 1989 rotator cuff, right 2002 right knee arthroscopy 2008 retinectomy, left eye [id number] HT R2nd toe 05/22/2017 shoulder replacement 2022 bladder surgery 2020
--- NOTE | 2024-09-06 19:16 | PC.NURSE ---
this rn assumed care of pt, pt a&ox4, respirations even and unlabored. pt reports she was sitting on the toilet after showering and had a syncopal episode. pt reports prior to shower she was throwing up. pt reports she did not fall off toilet and that she thinks she woke up a few minutes later on the toilet. pt offers no complaints at this time. pt changed into gown, normal sinus on tele 85-87bpm. 18G in left forearm by ems
[2024-09-06 19:21] LABS: MANUAL DIFF FLAG NO
[2024-09-06 19:34] LABS: INTERNATIONAL NORM RATIO 0.9 (0.9-1.1)
[2024-09-06 19:38] LABS: Alanine Aminotransferase 19 U/L (0-31); Albumin Level 3.9 g/dL (3.5-5.0); Alkaline Phosphatase 62 U/L (39-117); Anion Gap 15 (12-20); Aspartate Amino Transferase 28 U/L (5-31); Basophils Absolute Auto 0.1 X10*3/uL (0.0-0.2); Basophils Percent Auto 0.4 % (0-2); Bilirubin Total 0.5 mg/dL (0.0-1.0); Blood Urea Nitrogen 21 mg/dL (9-16); Calcium 9.6 mg/dL (8.4-10.2); Carbon Dioxide 22 mmol/L (22-29); Chloride 108 mmol/L (96-108); Creatinine Clr Calc Pharmacy 44.1; Eosinophils Percent Auto 0.2 % (0-4); Estimated Glomerular Filt Rate 47; Glucose Random 259 mg/dL (60-115); Hematocrit 44.2 % (37.0-47.0); Hemoglobin 14.6 g/dl (12.0-16.0); Imm Gran Abs Auto 0.05 X10*3/uL (0.00-0.03); Imm Gran Pct Auto 0.4 % (0.0-0.4); Lipase 38 U/L (8-78); Lymphocytes Absolute Auto 1.6 X10*3/uL (1.2-4.9); Lymphocytes Percent Auto 11.9 % (20-40); Mean Corpuscular Hemoglobin 30.9 pg (27.0-33.0); Mean Corpuscular Volume 93.6 fL (80.0-98.0); Mean Platelet Volume 9.3 fL (9.4-12.3); Neutrophils Absolute Auto 11.1 x10*3/uL (2.0-8.3); Neutrophils Percent Auto 80.1 % (45-73); Platelet Count 201 X10*3/uL (160-400); Potassium 4.1 mmol/L (3.3-5.1); Red Blood Count 4.72 X10*6/uL (4.20-5.50); Red Cell Distribution Width 12.3 % (11.0-16.0); Sodium 141 mmol/L (135-145); White Blood Count 13.8 X10*3/uL (4.8-10.8)
--- NOTE | 2024-09-06 19:58 | ED_ITS ---
HPI - General Adult General Chief complaint: Syncope Stated complaint: v/d,weak, syncopal episode w/out fall Time Seen by Provider: 09/06/24 18:31 Source: patient, family (Son), RN notes reviewed and old records reviewed Mode of arrival: EMS Limitations: no limitations History of Present Illness ED Provider: Jojo HPI narrative: 74-year-old female with past medical history significant for hypertension, diabetes presents for evaluation after a syncopal episode. Patient reports that she had vomiting and diarrhea today. She reports that when she sat on the toilet she believes she passed out while seated. She states that she woke up ?with more vomit than I remember doing. ? Denies any sick contacts pain Denies any headache, fevers, chills, cough, chest pain. She denies any abdominal pain Denies any recent travel or antibiotic use. Her diarrhea is nonbloody She reports she feels somewhat tired and thirsty but otherwise feels well currently. Related Data Home Medications ?Medication ?Instructions ?Recorded ?Confirmed aspirin 81 mg tablet,delayed 81 mg PO DAILY 02/23/21 release cetirizine 10 mg capsule (Zyrtec) 10 mg PO DAILY PRN 02/23/21 gabapentin 300 mg capsule 300 mg PO DAILY 02/23/21 glipizide 5 mg tablet 5 mg PO DAILY 02/23/21 lisinopril 20 mg tablet 20 mg PO DAILY 02/23/21 multivitamin (Daily Multi-Vitamin 1 tab PO DAILY 02/23/21 tablet) simvastatin 10 mg tablet 10 mg PO DAILY 02/23/21 blood sugar diagnostic #10 ea 03/14/21 dulaglutide 0.75 mg/0.5 mL 0.75 mg subcut QWEEK 03/14/21 subcutaneous pen injector fluticasone propionate 50 spray intranasal 03/14/21 mcg/actuation nasal spray,suspension glipizide 2.5 mg tablet, extended 2.5 mg PO DAILY 03/14/21 release 24 hr glipizide 5 mg tablet, extended 5 mg PO BID 03/14/21 release 24 hr metformin 500 mg tablet,extended 500 mg PO DAILY 03/14/21 release 24 hr Allergies Allergy/AdvReac Type Severity Reaction Status Date / Time No Known Allergies Allergy Mild N/A Verified 09/06/24 18:22 Review of Systems 2 Constitutional: Constitutional: Denies body ache(s), Denies chills, Denies fever(s), Denies headache(s) and Reports malaise ENT: Denies vertigo, Denies dizziness and Denies headache(s) Cardiovascular: Cardiovascular: Denies chest pain and Reports syncope Gastrointestinal: Gastrointestinal: Denies abdominal pain, Reports nausea and Reports vomiting Musculoskeletal: Musculoskeletal: Denies back pain Integumentary/Breasts: Skin/Breast: Denies rash Neurologic: Denies vertigo, Denies dizziness, Reports syncope and Denies headache(s) [facility] Past Medical History Medical History Diabetes mellitus HTN (hypertension) Sciatica Surgical History H/O vitrectomy H/O: knee surgery History of back surgery History of surgery History of tubal ligation Hx of bladder repair surgery Social History Social History Patient Tobacco Use Status: Never used Tobacco Smoked in Last 30 Days: No Use of substances other than those prescribed or required for medical reasons: No Advance Directives: No Advance Directives Information Provided: No Current occupational status: unemployed Physical Exam ED Vital Signs: Vital Signs - 24 hr 09/06/24 18:19 09/06/24 18:24 09/06/24 18:24 Temperature 99.3 F Pulse Rate 93 88 Respiratory Rate 16 16 Blood Pressure 127/59 L Pulse Oximetry 97 99 99 Oxygen Delivery Method Room Air Room Air Room Air 09/06/24 20:20 09/06/24 22:04 Temperature 97.6 F 98.7 F Pulse Rate 96 89 Respiratory Rate 21 H 12 Blood Pressure 113/79 151/69 H Pulse Oximetry 97 97 Oxygen Delivery Method Room Air Room Air BMI result Body Mass Index 26.6 Const General: healthy appearing, comfortable, no acute distress, alert and awake Nutritional Appearance: well nourished Orientation/consciousness: patient oriented x3 HENMT Head: Yes normocephalic and Yes atraumatic Eyes Eyelids: Yes eyelids normal Conjunctivae: conjunctivae normal Sclerae: sclerae normal Corneas: corneas normal Pupils: Equal, round and reactive pupils present EOM: EOMs intact bilaterally Neck Neck: Yes full ROM Resp Effort & Inspection: normal respiratory effort, able to speak in complete sentences and not labored Cardio Rate: regular rate Rhythm: regular rhythm GI Inspection: No distended Palpation (GI): Soft to palpation, not firm, nontender, no guarding and not rigid Skin General skin exam: elasticity normal Neuro General: patient oriented x3 Cranial nerves: Yes CN's II-XII intact bilaterally, Yes Equal, round and reactive pupils present and Yes Bilaterally intact EOM present Cognition (Neuro): normal cognition Extrem Other: Moving all extremities well without any obvious deformities Course Reevaluation(s) Reevaluation #1: Patient's initial trop was elevated to 61.9. She denies any chest pain, she reports feeling well. Plan for repeat troponin Time: 21:50 Reevaluation #2: Patient's repeat troponin was 103.8. Again, the patient still continues to deny chest pain or any cardiac symptoms. I discussed this with Cardiology, Dr Sylvester who feels the patient is stable for discharge given the patient's presentation, normal EKG. He agrees the syncope was likely situational and not cardiogenic. I discussed this with the patient and her son who is bedside. She will follow up with her PCP. Return precautions were given Time: 22:42 Medical Decision Making Medical Decision Making MDM Narrative: 74-year-old female presents for evaluation of a syncopal episode. This was not witnessed, but she was seated on the toilet and woke up still seated on the toilet, there was no head strike. She had nausea and vomiting but no abdominal pain, she had not had any chest pain, shortness of breath. The patient currently denies any headache, she has a reassuring exam, no neuro deficits, she has no abdominal tenderness. Her syncope was likely a vasovagal episode due to the vomiting and diarrhea. She is not hypertensive, there was no reported head strike she has no headache, no focal neuro deficits, she is not anticoagulated. I did consider a CT scan of the brain but felt it was not indicated at this time. Patient had basic labs, EKG troponin, viral swabs ordered. The patient has no abdominal pain, her blood pressure is 127/59, less likely to be AAA or aortic dissection. Differential Diagnosis Differential Diagnoses: The differential diagnosis associated with the presentation includes Syncope Vasovagal syncope Neuro virus Enteritis Diverticulitis less likely Abdominal pain AAA less likely Lab Data MDM Lab Attestation statement: I reviewed the patient's lab results. Mild leukocytosis to 13.8 which may be related to the patient's vomiting and diarrhea. There was no significant anemia. Normal platelet count. No electrolyte abnormalities. Patient's glucose is elevated to 59, she is a known diabetic. No evidence of DKA. 09/06/24 19:14 09/06/24 19:14 Labs: Lab Results 09/06/24 09/06/24 Range/Units 19:14 21:35 WBC 13.8 H (4.8-10.8) X10*3/uL RBC 4.72 (4.20-5.50) X10*6/uL Hgb 14.6 (12.0-16.0) g/dl Hct 44.2 (37.0-47.0) % MCV 93.6 (80.0-98.0) fL MCH 30.9 (27.0-33.0) pg MCHC 33.0 (31.0-35.0) g/dl RDW 12.3 (11.0-16.0) % Plt Count 201 (160-400) X10*3/uL MPV 9.3 L (9.4-12.3) fL Immature Gran % (Auto) 0.4 (0.0-0.4) % Neut % (Auto) 80.1 H (45-73) % Lymph % (Auto) 11.9 L (20-40) % Person % (Auto) 7.0 (2-11) % Eos % (Auto) 0.2 (0-4) % Baso % (Auto) 0.4 (0-2) % Lymph # (Auto) 1.6 (1.2-4.9) X10*3/uL Person # (Auto) 1.0 (0.1-1.2) X10*3/uL Eos # (Auto) 0.0 (0.0-0.4) X10*3/uL Baso # (Auto) 0.1 (0.0-0.2) X10*3/uL Abs Immat Gran (auto) 0.05 H (0.00-0.03) X10*3/uL Absolute Neuts (auto) 11.1 H (2.0-8.3) x10*3/uL Absolute Nucleated RBC 0.000 (0.0-0.012) X10*3/uL Nucleated RBC % (auto) 0.0 (0.0-0.2) /100WBC PT 11.0 (10.9-12.4) SEC INR 0.9 (0.9-1.1) Sodium 141 (135-145) mmol/L Potassium 4.1 (3.3-5.1) mmol/L Chloride 108 (96-108) mmol/L Carbon Dioxide 22 (22-29) mmol/L Anion Gap 15 (12-20) BUN 21 H (9-16) mg/dL Creatinine 1.12 (0.5-1.4) mg/dL Estim Creat Clear Calc 44.1 Estimated GFR 47 Random Glucose 259 H (60-115) mg/dL Calcium 9.6 (8.4-10.2) mg/dL Total Bilirubin 0.5 (0.0-1.0) mg/dL AST 28 (5-31) U/L ALT 19 (0-31) U/L Alkaline Phosphatase 62 (39-117) U/L Troponin I High Sens 61.9 H* 103.8 H* D (<3.5-17.0) ng/L Total Protein 7.0 (6.5-8.0) g/dL Albumin 3.9 (3.5-5.0) g/dL Lipase 38 (8-78) U/L Influenza Type A (PCR) NEGATIVE (Negative) Influenza Type B (PCR) NEGATIVE (Negative) RSV RNA Qual (PCR) NEGATIVE (Negative) SARS-CoV-2 RNA (RT-PCR) NEGATIVE (Negative) Independent Interpretation I performed an independent interpretation of an: EKG (Normal sinus rhythm with a rate of [address] segment changes.) Discharge Plan Discharge Clinical Impression: Syncope Patient Disposition: Home, Self-Care Instructions: Syncope (ED) Additional Instructions: Your EKG today was normal. Your troponin level was slightly elevated. Your diarrhea is likely related to a virus. The syncopal episode was likely a vasovagal syncope related to the virus and bowel movements Follow-up with your primary doctor. Return for new or worsening symptoms, especially if you have any chest pain or additional syncopal episodes Prescriptions: No Action Trulicity 0.75 mg/0.5 mL pen injector 0.75 mg subcut QWEEK (DME) FreeStyle Lite Strips Strip See Rx Instructions .ROUTE .MEDSUPPLY Qty: 10 Rx Instructions: As directed glipizide 2.5 mg tablet extended release 24hr 2.5 mg PO DAILY glipizide 5 mg tablet extended release 24hr 5 mg PO BID fluticasone propionate 50 mcg/actuation spray,suspension intranasal metformin 500 mg tablet extended release 24 hr 500 mg PO DAILY lisinopril 20 mg tablet 20 mg PO DAILY simvastatin 10 mg tablet 10 mg PO DAILY Zyrtec 10 mg capsule 10 mg PO DAILY PRN multivitamin [Daily Multi-Vitamin] Tablet 1 tab PO DAILY glipizide 5 mg tablet 5 mg PO DAILY gabapentin 300 mg capsule 300 mg PO DAILY aspirin 81 mg tablet,delayed release (DR/EC) 81 mg PO DAILY Print Language: Divehi
[2024-09-06 20:05] LABS: Influenza A PCR NEGATIVE (Negative); Influenza B PCR NEGATIVE (Negative); Resp Syncy Virus RNA Qual PCR NEGATIVE (Negative); SARS COV2 PCR INHOUSE NEGATIVE (Negative)
[2024-09-06 21:42] LABS: Troponin-I High Sensitivity 61.9 ng/L (<3.5-17.0)
--- NOTE | 2024-09-06 21:54 | PC.NURSE ---
critical trop received, 61.5. Warren CARCAMO aware at this time.
[2024-09-06 22:18] LABS: Troponin-I High Sensitivity 103.8 ng/L (<3.5-17.0)
== END 2024-09-06 23:02 | disposition home or self-care (01) ==
PROVIDERS: Physician Assistant; Emergency Provider Emergency Medicine; PCP Internal Medicine
DX: R55 Syncope and collapse (principal); R19.7 Diarrhea, unspecified; R11.2 Nausea with vomiting, unspecified; E11.9 Type 2 diabetes mellitus without complications; I10 Essential (primary) hypertension; Z03.818 Encounter for observation for suspected exposure to other biological agents ruled out; Z79.84 Long term (current) use of oral hypoglycemic drugs; Z79.82 Long term (current) use of aspirin; Z79.85 Long-term (current) use of injectable non-insulin antidiabetic drugs; Z79.899 Other long term (current) drug therapy
CPT/HCPCS: 0241U; 36415; 80053; 83690; 83880; 84484; 85025; 85610; 93005; 99283; 99285

== ENCOUNTER → 2024-09-06 18:31 | Outpatient (BNV) | payer MEDICARE, SELFPAY | PROVIDERS: Emergency Provider Emergency Medicine; PCP Internal Medicine; Visit Provider Internal Medicine Cardiovascular Disease | DX: R55 Syncope and collapse (principal) | CPT/HCPCS: 93010 ==

== ENCOUNTER 2024-11-19 07:11 | Outpatient (REF) | payer MEDICARE, SELFPAY ==
--- OUTSIDE RECORDS SUMMARY | 2024-11-19 07:15 | XMS_ITS | Patient Health Record ---
Author Organization [facility] Chanel Winklerley Address [address] [facility] [place] [address] Care Team Providers Care Lumber Tallier Name Role Phone Maciel Wu MD Primary Care Provider Shahzad Cavazos Unavailable [phone] Allergies No Known Allergies Results Component Value [...] primary osteoarthritis of the ankle and/or foot (155895461) Primary osteoarthritis, right ankle and foot (M19.071) Active confirmed Problem Acquired hallux valgus (04882561) Hallux valgus (acquired), right foot (M20.11) Active confirmed Problem Non-pressure chronic ulcer of other part of right foot limited to breakdown of skin (L97.511) Active confirmed Problem Acquired hammer toe of right foot (7305925701215230 ) Other hammer toe(s) (acquired), right foot (M20.41) Active confirmed Problem Polyneuropathy due to type 2 diabetes mellitus (715918835) Type 2 diabetes mellitus with diabetic polyneuropathy (E11.42) Active confirmed Vital Signs Height 5ft6in in 02/26/2024 Weight 165 lbs 02/26/2024 BMI 26.63 kg/m2 02/26/2024 Procedures Procedure Date Ordered Date Performed Result Body Sit e 51829 I&D ABSCESS- SIMPLE,SINGLE 02/12/2024 N/A Encounters Encounter Location Date Provider Diagnosis [facility] [address] [address] 11/27/2023 Shahzad Novoa Type 2 diabetes mellitus with diabetic polyneuropathy E11.42 ; Tinea unguium B35.1 ; Skin disease L98.9 ; Hallux valgus (acquired), right foot M20.11 and Ingrowing nail L60.[address] [facility] [address] 02/12/2024 ShahzadStevens Type 2 diabetes mellitus with diabetic polyneuropathy E11.42 ; Tinea unguium B35.1 ; Skin disease L98.9 ; Hallux valgus (acquired), right foot M20.11 ; Ingrowing nail L60.0 ; Abscess, toe, right L02.611 and Cellulitis of right toe L03.[address] [address] 02/26/2024 Shahzad Novoa Type 2 diabetes mellitus with diabetic polyneuropathy E11.42 ; Tinea unguium B35.1 ; Skin disease L98.9 ; Hallux valgus (acquired), right foot M20.11 and Non-pressure chronic ulcer of other part of right foot limited to breakdown of skin L97.[address] [address] [facility] [address] [facility] [address] [place] [address] 02/11/[address] [address] 02/26/2024 Shahzad Bright Assessments Encounter Date Diagnosis [...] X ray : Foot, right 3V 02/19/2017 30183 I&D ABSCESS- SIMPLE,SINGLE 024 [id number], Toes 07/10/2017 Insurance Providers Payer Name Payer Address Payer Phone Subscriber Number Group Number Insured Name Patient Relationship to Insured Coverage Start Date Coverage End Date [employer] [place] [employer] Advantage [address] [place] [address] [id number] Tiffany Guadarrama Self - patient is the insured Medical (General) History Medical History History ICD Code Back,Hip,and Knee pain Cholesterol Cataracts type II diabetes High blood pressure Neuropathy Measles Mumps Chicken pox Joint implants/screws Arthritis Numbness Surgical History Surgery Date(Month/Year) back surgery 1989 rotator cuff, right 2002 right knee arthroscopy 2008 retinectomy, left eye [id number] HT R2nd toe 05/22/2017 shoulder replacement 2022 bladder surgery 2020
--- OUTSIDE RECORDS SUMMARY | 2024-11-19 07:15 | XMS_ITS ---
[facility] Address [address] [facility] [place] [address] Care Team Providers Care Retail Department Reset Name Role Phone Maciel Wu MD Primary Care Provider Shahzad Cavazos Unavailable [phone] Allergies No Known Allergies REASON FOR VISIT [...] Ordered Date Performed Result Body Sit e 76318 I&D ABSCESS- SIMPLE,SINGLE 02/12/2024 N/A Encounters Encounter Location Date Provider Diagnosis [facility] [address] [address] 02/12/2024 Shahzad Novoa Type 2 diabetes mellitus [...] 02/12/2024 Pending Test Test Name Order Date 80359 I&D ABSCESS- SIMPLE,SINGLE 024 Next Appt Details [...] * Tiffany LORDDOB: 8 (73 yo F)Acc No.[id number]:02/12/2024 Progress Note Patient:?Tiffany Lord Provider:?Shahzad Novoa DPM :1950???Age:73 Y???Sex:Female D ate:02/12/2024 Address:[address] [place], [place] [id number] Pcp:Maciel Wu MD Subjective: * Chief Complaints: [...] desiree. ?Marital status: . ?Occupation: Retired from [employer]. ???Household:?Caffeine: yes, Coffee 2 cups per day. ?Children: yes, 3 childbirths. ?Exercise: yes, walk, read, desiree. ?Marital status: . ?Occupation: Retired from [employer]. * Medications:?TakingAspirin 8 1 MG Tablet Chewable [...] 6.7 * Examination: ???Ophthalmology Referral: ?DIABETES EYE EXAM?Diabetic Retinopathy Screening:?No ?Findings of Diabetic Eye Exam:?no retinopathy?Abscess/infected nail: ?INSPECTION? Reveals nail incurvation, pain on [...] surgical procedures to prevent recurrence.? * Procedure Codes:?27075 DRAIN AGE OF SKIN ABSCESS, Modifiers: T5 [...] DPM Date:? 024 Generated for Merle meyer/Lisette/Prakash on:?11/19/2024 07:15 AM EST History and Physical Notes * HPI [...]
--- OUTSIDE RECORDS SUMMARY | 2024-11-19 07:15 | XMS_ITS ---
Author Organization [facility] Address [address] [place] [address] Care Team Providers Care Citrus Fruit Colorer Name Role Phone Maciel Wu MD Primary Care Provider Shahzad Cavazos [phone] REASON FOR VISIT BUY Betadine Encounters Encounter Location Date Provider Diagnosis [facility] [address] [place] [address] 02/26/2024 Shahzad Novoa Plan Of Treatment No Information Progress Notes * Tiffany LORDDOB: 8 (73 yo F)Acc No.[id number]:02/26/2024 Patient:?Tiffany Lord :1950???Age:73 Y???Sex:Female Address: [place], [address] * true * Date:? Generated for Printi betsy/Lisette/eTransmitting on:?11/19/2024 07:15 AM EST
--- OUTSIDE RECORDS SUMMARY | 2024-11-19 07:15 | XMS_ITS ---
[facility] Address [address] [place] [address] Care Team Providers Care Sample Box Maker Name Role Phone Maciel Wu MD Primary Care Provider Shahzad Cavazos Unavailable [phone] Allergies No Known Allergies REASON FOR VISIT [...] 02/26/2024 Encounters Encounter Location Date Provider Diagnosis [facility] [place] [address] [place] [address] 02/26/2024 Shahzad Novoa Type 2 diabetes mellitus [...] symptoms of infection or any untoward reactions (99447) Progress Notes * Tiffany LORDDOB: 8 (74 yo F)Acc No.[id number]:02/26/2024 Progress Notes Patient:?Tiffany LORD Provider:?Shahzad Novoa DPM :1950???Age:73 Y???Sex:Female D ate:02/26/2024 Address:[address] [place], [place] [id number] Pcp:Maciel Wu MD Subjective: * Chief Complaints: * ???Last PCP Visit: 01/28/24Po ssible InfectionUlcer(s) * HPI: ???At Risk footcare:?Pt States Last PCP Visit:?Date?10/18/2023 ???Skin problems:?Nature:?tender, redness.?Location:?Right , [facility].?Duration:?a few months.?Onset/Cause:?unknown.?Course:?improved.?Aggravated by:?any pressure.? * ROS:?General/Constitutional:?Nausea?denies.?Vomiting?denies.?Hunger Thirst?denies.?Loss [...] desiree. ?Marital status: . ?Occupation: Retired from [employer]. * Medications:?TakingAspirin 8 1 MG Tablet Chewable 1 tablet Orally Once a day Omeprazole 20 MG Capsule Delayed Release 1 capsule 30 minutes before morning meal Orally Once a day Trulicity 3 MG/0.5ML Solution Pen-injector as directed Subcutaneous Lisinopril 20 MG Tablet 1 tablet Orally twice daily Simvastatin 10 MG Tablet 1 tab daily Orally Once a day metFORMIN HCl 500 MG Tablet 1tablet daily Orally Once a day glipiZIDE ER 2.5 MG Tablet Extended Release 24 Hour Orally Gabapentin 300 MG Capsule Orally Once a day Taking Aspirin 81 MG Tablet Chewable 1 tablet Orally Once a day Taking Omeprazole 20 MG Capsule Delayed Release 1 capsule 30 minutes before morning meal Orally Once a day Taking Trulicity 3 MG/0.5ML Solution Pen-injector as directed Subcutaneous Taking Lisinopril 20 MG Tablet 1 tablet Orally twice daily Taking Simvastatin 10 MG Tablet 1 tab daily Orally Once a day Taking metFORMIN HCl 500 MG Tablet 1tablet daily Orally Once a day Taking glipiZIDE ER 2.5 MG Tablet Extended Release 24 Hour Orally Taking Gabapentin 300 MG Capsule Orally Once a day Not-Taking/PRNDoxycycline Monohydrate 100 MG Capsule 1 capsule Orally Once a day Not-Taking/PRN Doxycycline Monohydrate 100 MG Capsule 1 capsule Orally Once a day UnknownFluticasone Propionate 50 MCG/ACT Suspension 1 spray in each nostril Nasally Once a day Calcium 500 MG 1 tablet Orally Once a day Multivitamin ZyrTEC Allergy 10 MG Tablet 1 tablet Orally Once a day Eliquis 2.5 MG Tablet Orally twice a day Extra Depth Diabetic Shoes with 3 Pair Custom heat-molded multi-density innersoles for 1 year Dx: Ibuprofen 600 MG Tablet 1 tablet with food or milk Orally Three times a day Medication List reviewed and reconciled with the patientUnknown Fluticasone Propionate 50 MCG/ACT Suspension 1 spray in each nostril Nasally Once a day Unknown Calcium 500 MG 1 tablet Orally Once a day Unknown Multivitamin Unknown ZyrTEC Allergy 10 MG Tablet 1 tablet Orally Once a day Unknown Eliquis 2.5 MG Tablet Orally twice a day Unknown Extra Depth Diabetic Shoes with 3 Pair Custom heat-molded multi- density innersoles for 1 year Dx: Unknown Ibuprofen 600 MG Tablet 1 tablet with food or milk Orally Three times a day Medication List reviewed and reconciled with the patient * Allergies:?N.K.D.A.yes[Aller gies Verified] Objective: * Vitals:?Ht: 5ft6in, Wt:165, BMI:26.63, Shoe size: 10, Ht-cm: 167.64 cm, Wt-k.84 kg. * Examination: ???Ophthalmology Referral: ?DIABETES EYE EXAM?Diabetic Retinopathy Screening:?Yes ?Findings of Diabetic Eye Exam:?no retinopathy?General Examination: ?GENERAL APPEARANCE:?pleasant, alert, well nourished, well developed, well hydrated, with good attention to hygene/body habitus, and in no acute distress.?ORIENTED:?person,place, and time.?FOOT EXAM:?Lower Extremity Neurological Exam performed:?Yes ?Visual exam of foot performed:?Yes ?Date?02/26/2024 ?Sensory testing performed:?sensations diminished ?Sensory and motor testing performed:?sensations diminished ?Pedal pulse taking performed:?2+?Neurological: ?SENSORY:? Neurological exam demonstrates, reduced vibration sensation, 5.07 monofilament test performed at plantar aspects of 5 varied sites per foot shows sensation, reduced , B/L.?BABINSKI REFLEX:?absent.?Vascular: ?DP PULSES (B):?2/4, B/L.?PT PULSES (B):?2/4, B/L.?CAPILLARY FILL TIME:?3 secs. per digit, B/L.?TROPHIC CONDITION-TEXTURE/ELASTICITY/TURGOR/HAIR GROWTH (B):?normal, B/L.?TEMPERTURE GRADIENT (C):?warm to cool, proximal to distal, B/L.?PIGMENTATION:?normal, B/L.?EDEMA (C):?no edema, B/L.?TELANGECTASIA:?absent.?VARICOSITIES:?absent.?Dermatologic: ?SKIN FINDINGS:?Skin exam reveals normal [...] all groups in a symmetrical fashion , B/L.?GAIT ABNORMALITY:?pronated, abducted, B/L.?BUNION:? Medially prominent 1st MPJ, RIGHT, Lateral tracking 1st MPJ incompletely reducible.? Assessment: * Assessment: 1.?Type 2 diabetes mellitus with diabetic polyneuropathy - E11.42???2.?Tinea unguium - B35.1???3.?Skin disease - L98.9 (Primary)???4.?Hallux valgus (acquired), right foot - M20.11???5.?Non-pressure chronic ulcer of other part of right foot limited to breakdown of skin - L97.511??? Plan: * Treatment: * Procedures:?Debride skin< 25 [...] symptoms of infection or any untoward reactions (11961).? * Procedure Codes:?79144 ACTIV E WOUND CARE/20 CM OR < * Follow Up:?prn * Images: * Sign off status: Completed true * Provider:?Shahzad Novoa DPM Date:? 024 Generated for Merle meyer/Lisette/Prakash on:?11/19/2024 07:14 AM EST History and Physical Notes * [...] hygene/body habitus, and in no acute distress FOOT EXAM: Lower Extremity Neurological Exa m performed:: Yes Visual exam of foot performed:: Yes Date: 02/26/2024 Sensory testing performed:: sensations d iminished Sensory and motor testing performed:: se nsations diminished Pedal pulse taking performed:: 2+ ORIENTED: person,place, and ti me Ophthalmology Referral [...]
[2024-11-19 10:01] LABS: Appearance Urine Clear; Color Urine Yellow; Glucose Urine UA Negative (Negative); Leukocyte Esterase Urine Trace (Negative); Nitrite Urine Negative (Negative); PH 6.5 (5.0-9.0); UMIC TRIGGER UACC YES; Urine Blood Negative (Negative); Urine Ketones Negative (Negative); Urine Protein Negative (Neg-Trace)
[2024-11-19 10:07] LABS: Bacteria Urine None Seen (None Seen); Hyaline Casts Urine 0-2 /LPF (0-2); RBC Urine 0-2 /HPF (0-2); Squamous Epithelial Cell Urine 0-2 /HPF (0-2); WBC Urine 0-5 /HPF (0-5)
[2024-11-19 10:09] LABS: MANUAL DIFF FLAG NO
[2024-11-19 10:20] LABS: Basophils Absolute Auto 0.1 X10*3/uL (0.0-0.2); Basophils Percent Auto 0.8 % (0-2); Eosinophils Absolute Auto 0.3 X10*3/uL (0.0-0.4); Eosinophils Percent Auto 3.8 % (0-4); Hematocrit 42.7 % (37.0-47.0); Imm Gran Abs Auto 0.01 X10*3/uL (0.00-0.03); Imm Gran Pct Auto 0.1 % (0.0-0.4); Lymphocytes Absolute Auto 3.3 X10*3/uL (1.2-4.9); Lymphocytes Percent Auto 41.7 % (20-40); Mean Corpuscular HGB Conc 32.8 g/dl (31.0-35.0); Mean Corpuscular Hemoglobin 30.5 pg (27.0-33.0); Mean Platelet Volume 10.3 fL (9.4-12.3); Monocytes Absolute Auto 0.6 X10*3/uL (0.1-1.2); Monocytes Percent Auto 7.8 % (2-11); Neutrophils Absolute Auto 3.7 x10*3/uL (2.0-8.3); Neutrophils Percent Auto 45.8 % (45-73); Platelet Count 244 X10*3/uL (160-400); Red Blood Count 4.59 X10*6/uL (4.20-5.50); Red Cell Distribution Width 12.2 % (11.0-16.0)
[2024-11-19 10:25] LABS: Estimated Average Glucose 146 mg/dL; Hemoglobin A1c % 6.7 % (<6.0)
[2024-11-19 10:36] LABS: Alanine Aminotransferase 18 U/L (0-31); Alkaline Phosphatase 70 U/L (39-117); Anion Gap 12 (12-20); Aspartate Amino Transferase 27 U/L (5-31); Bilirubin Total 0.6 mg/dL (0.0-1.0); Blood Urea Nitrogen 14 mg/dL (9-16); Calcium 9.5 mg/dL (8.4-10.2); Carbon Dioxide 25 mmol/L (22-29); Chloride 108 mmol/L (96-108); Estimated Glomerular Filt Rate > 60; Glucose Random 129 mg/dL (60-115); Potassium 4.4 mmol/L (3.3-5.1); Sodium 141 mmol/L (135-145); Total Protein 7.6 g/dL (6.5-8.0)
[2024-11-19 11:08] LABS: Creatinine Urine 58.53 mg/dL; Microalbum/Creatinine Ratio Ur 15.3 ug/mg cr (<30)
== END 2024-11-19 07:12 | disposition home or self-care (01) ==
LOC: HO.HMGCLDS 07:11
PROVIDERS: Referring Provider Family Medicine; Visit Provider Internal Medicine
DX: I10 Essential (primary) hypertension (principal); E11.9 Type 2 diabetes mellitus without complications; K21.9 Gastro-esophageal reflux disease without esophagitis; N18.9 Chronic kidney disease, unspecified
CPT/HCPCS: 36415; 80053; 81001; 81003; 82043; 82570; 83036; 85025; 87086

== ENCOUNTER 2024-12-20 14:32 | Outpatient (AMB) | payer MEDICARE, SELFPAY ==
--- NOTE | 2024-12-20 14:48 | A.OFFPC_ITS ---
Vital Signs 12/20/24 14:51 Weight 163 lb BP 138/76 Blood Pressure Location Lt brachial Position Left Lateral Pulse 75 Pulse Source Pulse Oximeter Temp 97.6 F Temp Source Axillary Pulse Oximetry (%) 99 Oxygen Delivery Method Room Air Intake Visit Reasons: Routine Angle Shear Set Up Operator Required: No Accompanied by: Self / Same As Patient Allergies No Known Allergies Allergy (Mild, Verified 12/20/24 15:35) N/A Medication List - Last Reconciled 12/20/24 by Yovani Mortensen MD aspirin 81 mg PO DAILY blood sugar diagnostic As directed calcium carbonate (Calcium 500) 500 mg PO DAILY cetirizine (Zyrtec) 10 mg PO DAILY PRN dulaglutide (Trulicity) mg subcut fluticasone propionate 50 mcg/actuation sprays intranasal gabapentin 300 mg PO DAILY gabapentin 300 mg PO DAILY glipizide ER 2.5 mg PO DAILY glipizide ER 5 mg PO BID lisinopril 20 mg PO DAILY metformin ER 500 mg PO DAILY multivitamin (Daily Multi-Vitamin tablet) 1 tab PO DAILY omega 1-ode-xav-fish oil 1,000 (120-180) mg (Fish Oil) 1 cap PO DAILY omeprazole 20 mg PO DAILY simvastatin 10 mg PO DAILY Tobacco use date assessed: 12/20/24 Fall risk assessment: No Falls in past year Dental Screening Dental Screen Date: 12/20/24 Did you have a dental visit in the last 12 months?: Yes Did you have a dental problem in the last 6 months where you did not have access to dental care?: No PFSH Medical History (Updated 12/20/24 @ 15:38 by Yovani Mortensen MD) Sciatica Diabetes mellitus HTN (hypertension) Surgical History Hx of bladder repair surgery History of surgery H/O vitrectomy H/O: knee surgery History of back surgery History of tubal ligation Family History Mother No problems noted. Father No problems noted. Social History Housing: House Patient Tobacco Use Status: Never used Tobacco e-Cigarette/Vaping Use: Never Used service: No Current occupational status: retired Cognitive needs: No Hearing needs: No Vision needs: Yes (rx glasses) Questionnaire PHQ-9 Over the last 2 weeks, how often have you been bothered by any of the following problems? 1. Little interest or pleasure in doing things: not at all 2. Feeling down, depressed, or hopeless: not at all 3. Trouble falling or staying asleep, or sleeping too much: not at all 4. Feeling tired or having little energy: not at all 5. Poor appetite or overeating: not at all 6. Feeling bad about yourself - or that you are a failure or have let yourself or your family down: not at all 7. Trouble concentrating on things, such as reading the newspaper or watching television: not at all 8. Moving or speaking so slowly that other people could have noticed. Or the opposite - being so fidgety or restless that you have been moving around a lot more than usual: not at all 9. Thoughts that you would be better off or of hurting yourself in some way: not at all Total score: 0 Source: Developed by Drs. Lasha Park, Laina Richmond, Vamshi Pink and colleagues, with an educational lurdes from [employer]. Thrive Questionnaire Date Thrive assessed: 12/20/24 I am a: Patient Within the past 12 months, did the food you bought not last and you didn't have the money to get more?: Never true Within the past 12 months, did you worry whether your food would run out before you got money to buy more?: Never true Do you have trouble paying for medicines?: No Do you have trouble getting transportation to medical appointments?: No Do you have trouble paying your heating and electricity bill?: No Do you have trouble taking care of your child, family member or friend?: No Do you have trouble with day-to-day activities such as bathing, preparing meals, shopping, managing finances, etc.?: No Are you currently unemployed and looking for a job?: No Are you interested in more education?: No THRIVE Score: 0 AUDIT C Alcohol Use Questionnaire (AUDIT-C) 1. How often do you have a drink containing alcohol?: Never 3. How often do you have six or more drinks on one occasion?: Never Total Score: 0 BONI-7 AMB Questionnaire BONI-7 Date BONI - 7 assessed: 12/20/24 Feeling nervous, anxious, or on edge: 0 = Not at all Not being able to stop or control worryin = Not at all Worrying too much about different things: 0 = Not at all Trouble relaxin = Not at all Being so restless that it is hard to sit still: 0 = Not at all Becoming easily annoyed or irritable: 0 = Not at all Feeling afraid as if something awful might happen: 0 = Not at all Total BONI-7 score (0-4 normal; 5-9 mild; 10-14 moderate; 15-21 severe): 0 Source: Developed by Drs. Lasha Park, Laina Richmond, Vamshi Pink and colleagues, with an educational lurdes from [employer]. Physical exam (Primary Care) Vital Signs: Last Vital Signs Temp 97.6 F 12/20/24 14:51 Pulse 75 12/20/24 14:51 BP 138/76 12/20/24 14:51 Pulse Ox 99 12/20/24 14:51 Oxygen Delivery Method Room Air 12/20/24 14:51 Tobacco/Smoking Status: Tobacco use Status Tobacco use date assessed 12/20/24 12/20/24 15:04 Patient Tobacco Use Status Never used Tobacco 12/20/24 15:04 e-Cigarette/Vaping Use Never Used 12/20/24 15:04 PHQ-9: PHQ-9 Score PHQ-9: Total score 0 12/20/24 15:04 Thrive Assessment: Date of Thrive Assessment Date Thrive assessed 12/20/24 12/20/24 15:04 Coding Level of Care Code New Pt Level 4 (28630) Complex EM visit Add On G2211 Diagnoses Diabetes mellitus E11.9 Assessment & Plan Assessment & Plan (1) Diabetes mellitus: Code(s): E11.9 - Type 2 diabetes mellitus without complications Category: Medical Plan: A1c is in range, Continue medications at same dosage. Plan History of Present Illness The patient is a 74-year-old female presenting with a follow-up visit primarily aimed at monitoring Type 2 Diabetes Mellitus management. She reports significant improvement in her blood glucose levels, achieving better control than previous measures. The patient is maintained on a regimen of 20 mg Glipizide daily, taken as two 10 mg doses twice a day, while disregarding the 2.5 mg dosage. Her diabetes regimen also includes Metformin and Trulicity, which she refills using [facility] [facility] mail-order services online. There has been a change to six-month follow- ups, reflecting improvement in her diabetic control, with contingency plans for earlier visits if required. 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 - Lives independently - Denies alcohol and tobacco use - Manages activities of daily living, although experiences quicker fatigue - Has three children, two of whom live locally, one in [place] Review of Systems - Neurological: Denies confusion - General: Reports quicker fatigue than previously - Sleep: Variable sleep quality, sometimes well Physical Exam General: Cooperative and healthy appearing Nutritional Appearance: Well nourished Orientation/consciousness: Patient oriented x3 Limitations: No limitations Head: Normal to inspection General: Appearance normal, both eyes and all related structures Neck: Normal visual inspection Chest: Normal palpation of entire chest wall Respiratory: Normal respiratory effort Neurology: Patient oriented x3 Results - Labs: Discussion of blood work results showing improved diabetes management Plan The patient's regimen for Type 2 Diabetes Mellitus remains unchanged with Glipizide, Metformin, and Trulicity, evidencing satisfactory blood glucose management. Alterations to the follow-up timeline, now set at six months instead of three, reflect stable diabetes control with the option for earlier consultation if needed. The patient utilizes [facility] mail-order for medication refills efficiently and should proceed with this process for continued refills. Patient was informed and verbally consented to the use of an ambient scribe for clinic note documentation during this visit. Discussion Notes During the consultation, I reinforced the importance of maintaining the current diabetes medication regimen due to improved blood glucose control. We discussed the benefits of Glipizide, Metformin, and Trulicity in her treatment plan, emphasizing that a well-maintained regimen reduces the risk of long-term complications. I confirmed the move from quarterly to biannual visits owing to the achieved stabilization in diabetes control. The engagement with [employer] mail-o [facility]der services came with clarifications on refilling medications online, aiming to streamline her medication management. Should glucose levels deviate, she is to reach out immediately, allowing for timely medical intervention. Patient Instructions - Continue current medication regimen of Glipizide, Metformin, and Trulicity. - Maintain regular monitoring of blood glucose levels. - Use [facility] mail-order services for medication refills online. - Attend follow-up appointment in six months or sooner if there are concerns. - Contact the office or pharmacy for early refills or if medication is running low. - Monitor for any changes in health status and report them promptly. Medications: New metformin ER 500 mg PO DAILY 90 tabs 1RF
[2024-12-20 14:51] VITALS: BP 138/76; PULSE 75; TEMP 36.4; O2SAT 99
--- OUTSIDE RECORDS SUMMARY | 2024-12-20 17:21 | XMS_ITS ---
[facility] Address [address] [place] [address] [place] [address] Care Team Providers Care Business Center Representative Name Role Phone Maciel Wu MD Primary Care Provider Shahzad Cavazos Unavailable [phone] Allergies No Known Allergies REASON FOR VISIT [...] 02/26/2024 Encounters Encounter Location Date Provider Diagnosis [facility] [place] [address] [place] [address] 02/26/2024 Shahzad Novoa Type 2 diabetes mellitus [...] symptoms of infection or any untoward reactions (91966) Progress Notes * Tiffany LORDDOB: 8 (74 yo F)Acc No.[id number]:02/26/2024 Progress Notes Patient:?Tiffany LORD Provider:?Shahzad Novoa DPM :1950???Age:73 Y???Sex:Female D ate:02/26/2024 Address:[address] [place], [place] [id number] Pcp:Maciel Wu MD Subjective: * Chief Complaints: * ???Last PCP Visit: 01/28/24Po ssible InfectionUlcer(s) * HPI: ???At Risk footcare:?Pt States Last PCP Visit:?Date?10/18/2023 ???Skin problems:?Nature:?tender, redness.?Location:?Right , [facility].?Duration:?a few months.?Onset/Cause:?unknown.?Course:?improved.?Aggravated by:?any pressure.? * ROS:?General/Constitutional:?Nausea?denies.?Vomiting?denies.?Hunger [...] desiree. ?Marital status: . ?Occupation: Retired from [employer]. * Medications:?TakingAspirin 8 1 MG Tablet Chewable [...] symptoms of infection or any untoward reactions (61710).? * Procedure Codes:?59228 ACTIV E WOUND CARE/20 CM OR < * Follow Up:?prn * Images: * Sign off status: Completed true * Provider:?Shahzad Novoa DPM Date:? 024 Generated for Merle meyer/Lisette/Prakash on:?12/20/2024 05:21 PM EDT History and Physical Notes * HPI (History [...]
--- OUTSIDE RECORDS SUMMARY | 2024-12-20 17:21 | XMS_ITS | Patient Health Record ---
Author Organization [facility] Chanel Winklerley Address [address] [place] [address] Care Team Providers Care Resource Specialist Name Role Phone Maciel Wu MD Primary Care Provider Shahzad Cavazos Unavailable [phone] Allergies No Known Allergies Reason For Referral No Information Medications Medication [...] primary osteoarthritis of the ankle and/or foot (399759533) Primary osteoarthritis, right ankle and foot (M19.071) Active confirmed Problem Acquired hallux valgus (72217666) Hallux valgus (acquired), right foot (M20.11) Active confirmed Problem Non-pressure chronic ulcer of other part of right foot limited to breakdown of skin (L97.511) Active confirmed Problem Acquired hammer toe of right foot (9947145889856518 ) Other hammer toe(s) (acquired), right foot (M20.41) Active confirmed Problem Polyneuropathy due to type 2 diabetes mellitus (951403088) Type 2 diabetes mellitus with diabetic polyneuropathy (E11.42) Active confirmed Vital Signs Height 5ft6in in 02/26/2024 Weight 165 lbs 02/26/2024 BMI 26.63 kg/m2 02/26/2024 Procedures Procedure Date Ordered Date Performed Result Body Sit e 25472 I&D ABSCESS- SIMPLE,SINGLE 02/12/2024 N/A Encounters Encounter Location Date Provider Diagnosis [facility] [address] [address] 02/12/2024 Shahzad Novoa Type 2 diabetes mellitus with diabetic polyneuropathy E11.42 ; Tinea unguium B35.1 ; Skin disease L98.9 ; Hallux valgus (acquired), right foot M20.11 ; Ingrowing nail L60.0 ; Abscess, toe, right L02.611 and Cellulitis of right toe L03.031 [facility] [address] [address] 02/26/2024 Shahzad Novoa Type 2 diabetes mellitus with diabetic polyneuropathy E11.42 ; Tinea unguium B35.1 ; Skin disease L98.9 ; Hallux valgus (acquired), right foot M20.11 and Non-pressure chronic ulcer of other part of right foot limited to breakdown of skin L97.511 [facility] [place] [address] [facility] [address] [place] [address] 02/11/2024 [facility] [place] [address] [place] [address] 02/26/2024 [facility] Assessments Encounter Date Diagnosis (ICD Code) Assessment Notes Treatment Notes Treatment Clinical Notes Section Notes 02/12/2024 Type 2 diabetes mellitus with diabetic polyneuropathy (ICD-10 - E11.42) 02/26/2024 Type 2 diabetes mellitus with diabetic polyneuropathy (ICD-10 - E11.42) 02/26/2024 Tinea unguium (ICD-10 - B35.1) 02/12/2024 Tinea unguium (ICD-10 - B35.1) 02/12/2024 Hallux valgus (acquired), right foot (ICD-10 - M20.11) 02/12/2024 Skin disease (ICD-10 - L98.9) 02/26/2024 Skin disease (ICD-10 - L98.9) 02/26/2024 Hallux valgus (acquired), right foot (ICD-10 - M20.11) 02/26/2024 Non-pressure chronic ulcer of other part of right foot limited to breakdown of skin (ICD-10 - L97.511) 02/12/2024 Ingrowing nail (ICD-10 - L60.0) 02/12/2024 Abscess, toe, right (ICD-10 - L02.611) 02/12/2024 Cellulitis of right toe (ICD-10 - L03.031) Plan Of Treatment Pending Test Test Name Order Date X ray : Foot, right 2V 05/26/2017 X ray : Foot, right 2V 06/09/2017 X ray : Foot, right 2V 07/10/2017 X ray : Foot, right 3V 02/19/2017 63613 I&D ABSCESS- SIMPLE,SINGLE 024 [id number], Toes 07/10/2017 Insurance Providers Payer Name Payer Address Payer Phone Subscriber Number Group Number Insured Name Patient Relationship to Insured Coverage Start Date Coverage End Date [employer] [place] [employer] Advantage [address] [place] [address] [id number] Tiffany Guadarrama Self - patient is the insured Medical (General) History Medical History History ICD Code Back,Hip,and Knee pain Cholesterol Cataracts type II diabetes High blood pressure Neuropathy Measles Mumps Chicken pox Joint implants/screws Arthritis Numbness Surgical History Surgery Date(Month/Year) back surgery 1989 rotator cuff, right 2003 right knee arthroscopy 2007 retinectomy, left eye HT R2nd toe 05/22/2017 shoulder replacement 2022 bladder surgery 2020
--- OUTSIDE RECORDS SUMMARY | 2024-12-20 17:22 | XMS_ITS ---
Author [facility] Address [address] [facility] [place] [address] Care Team Providers Care Transfer Coordinator Name Role Phone Maciel Wu MD Primary Care Provider Shahzad Cavazos Unavailable [phone] Allergies No Known Allergies REASON FOR VISIT [...] Ordered Date Performed Result Body Sit e 63784 I&D ABSCESS- SIMPLE,SINGLE 02/12/2024 N/A Encounters Encounter Location Date Provider Diagnosis [facility] [address] [address] 02/12/2024 Shahzad Novoa Type 2 diabetes mellitus [...] 02/12/2024 Pending Test Test Name Order Date 14282 I&D ABSCESS- SIMPLE,SINGLE 024 Next Appt Details [...] * Tiffany LORDDOB: 8 (73 yo F)Acc No.[id number]:02/12/2024 Progress Note Patient:?Tiffany Lord Provider:?Shahzad Novoa DPM :1950???Age:73 Y???Sex:Female D ate:02/12/2024 Address:[address] [place], [place] [id number] Pcp:Maciel Wu MD Subjective: * Chief Complaints: [...] desiree. ?Marital status: . ?Occupation: Retired from [employer]. ???Household:?Caffeine: yes, Coffee 2 cups per day. ?Children: yes, 3 childbirths. ?Exercise: yes, walk, read, desiree. ?Marital status: . ?Occupation: Retired from [employer]. * Medications:?TakingAspirin 8 1 MG Tablet Chewable [...] surgical procedures to prevent recurrence.? * Procedure Codes:?84487 DRAIN AGE OF SKIN ABSCESS, Modifiers: T5 [...]
--- OUTSIDE RECORDS SUMMARY | 2024-12-20 17:22 | XMS_ITS ---
Author Organization [facility] Address [address] [place] [address] Care Team Providers Care Nitrator Operator Name Role Phone Maciel Wu MD Primary Care Provider Shahzad Cavazos [phone] REASON FOR VISIT BUY Betadine Encounters Encounter Location Date Provider Diagnosis [facility] [address] [place] [address] 02/26/2024 Shahzad Novoa Plan Of Treatment No Information Progress Notes * Tiffany LORDDOB: 8 (73 yo F)Acc No.[id number]:02/26/2024 Patient:?Tiffany Lord :1950???Age:73 Y???Sex:Female Address: [place], [address] * true * Date:? Generated for Printi ng/Fayordang/eTransmitting on:?12/20/2024 05:22 PM EDT
== END 2024-12-20 15:42 | disposition home or self-care (01) ==
LOC: HO.HMCHD 14:32
PROVIDERS: PCP Internal Medicine; Visit Provider Internal Medicine
DX: E11.9 Type 2 diabetes mellitus without complications (principal)

== ENCOUNTER → 2024-12-20 14:32 | Outpatient (BNVA) | payer MEDICARE, SELFPAY | PROVIDERS: PCP Internal Medicine; Visit Provider Internal Medicine | DX: E11.9 Type 2 diabetes mellitus without complications (principal) | CPT/HCPCS: 96127; 99202 ==

== ENCOUNTER 2025-02-01 08:48 | Outpatient (AMB) | payer MEDICARE, SELFPAY ==
--- OUTSIDE RECORDS SUMMARY | 2025-02-01 09:03 | XMS_ITS ---
Author Organization [facility] Address [address] [facility] [place] [address] Care Team Providers Care Ground Source Heat Pump Technician Name Role Phone Maciel Wu MD Primary Care Provider Shahzad Cavazos Unavailable [phone] Allergies No Known Allergies REASON FOR VISIT [...] 02/26/2024 Encounters Encounter Location Date Provider Diagnosis [facility] [place] [address] [place] [address] 02/26/2024 Shahzad Novoa Type 2 diabetes mellitus [...] symptoms of infection or any untoward reactions (33613) Progress Notes * Tiffany LORDDOB: 8 (74 yo F)Acc No.[id number]:02/26/2024 Progress Notes Patient:?Tiffany LORD Provider:?Shahzad Novoa DPM :1950???Age:73 Y???Sex:Female D ate:02/26/2024 Address:[address] [place], [place] [phone] Pcp:Maciel Wu MD Subjective: * Chief Complaints: * ???Last PCP Visit: 01/28/24Po ssible InfectionUlcer(s) * HPI: ???At Risk footcare:?Pt States Last PCP Visit:?Date?10/18/2023 ???Skin problems:?Nature:?tender, redness.?Location:?Right , [facility].?Duration:?a few months.?Onset/Cause:?unknown.?Course:?improved.?Aggravated by:?any pressure.? * ROS:?General/Constitutional:?Nausea?denies.?Vomiting?denies.?Hunger Thirst?denies.?Loss [...] desiree. ?Marital status: . ?Occupation: Retired from [employer]. * Medications:?TakingAspirin 8 1 MG Tablet Chewable [...] symptoms of infection or any untoward reactions (08188).? * Procedure Codes:?28527 ACTIV E WOUND CARE/20 CM OR < * Follow Up:?prn * Images: * Sign off status: Completed true * Provider:?Shahzad Novoa DPM Date:? 024 Generated for Merle meyer/Lisette/Prakash on:?02/01/2025 09:02 AM EDT History and Physical Notes * HPI [...]
--- OUTSIDE RECORDS SUMMARY | 2025-02-01 09:03 | XMS_ITS ---
Author Organization [facility] Address [address] [place] [address] Care Team Providers Care Director Acute Name Role Phone Maciel Wu MD Primary Care Provider Shahzad Cavazos [phone] REASON FOR VISIT BUY Betadine Encounters Encounter Location Date Provider Diagnosis [facility] [address] [place] [address] 02/26/2024 Shahzad Novoa Plan Of Treatment No Information Progress Notes * Tiffany LORDDOB: 8 (73 yo F)Acc No.[id number]:02/26/2024 Patient:?Tiffany Lord :1950???Age:73 Y???Sex:Female Address: [place], [address] * true * Date:? Generated for Printi ng/Fayordang/eTransmitting on:?02/01/2025 09:03 AM EDT
--- OUTSIDE RECORDS SUMMARY | 2025-02-01 09:03 | XMS_ITS ---
Author [facility] Address [address] [place] [address] Care Team Providers Care Ferryboat Deckhand Name Role Phone Maciel Wu MD Primary Care Provider Shahzad Cavazos Unavailable [phone] Allergies No Known Allergies REASON FOR VISIT [...] Ordered Date Performed Result Body Sit e 19477 I&D ABSCESS- SIMPLE,SINGLE 02/12/2024 N/A Encounters Encounter Location Date Provider Diagnosis [facility] [address] [address] 02/12/2024 Shahzad Novoa Type 2 diabetes mellitus [...] 02/12/2024 Pending Test Test Name Order Date 63518 I&D ABSCESS- SIMPLE,SINGLE 024 Next Appt Details [...] * Tiffany LORDDOB: 8 (73 yo F)Acc No.[id number]:02/12/2024 Progress Note Patient:?Tiffany Lord Provider:?Shahzad Novoa DPM :1950???Age:73 Y???Sex:Female D ate:02/12/2024 Address:[address] [place], [place] [id number] Pcp:Maciel Wu MD Subjective: * Chief Complaints: [...] desiree. ?Marital status: . ?Occupation: Retired from [employer]. ???Household:?Caffeine: yes, Coffee 2 cups per day. ?Children: yes, 3 childbirths. ?Exercise: yes, walk, read, desiree. ?Marital status: . ?Occupation: Retired from [employer]. * Medications:?TakingAspirin 8 1 MG Tablet Chewable [...] surgical procedures to prevent recurrence.? * Procedure Codes:?32384 DRAIN AGE OF SKIN ABSCESS, Modifiers: T5 [...] Date:? 024 Generated for Merle meyer/Lisette/Prakash on:?02/01/2025 09:03 AM EDT History and Physical Notes * [...]
--- OUTSIDE RECORDS SUMMARY | 2025-02-01 09:03 | XMS_ITS | Patient Health Record ---
Author Organization [facility]el Winkler[facility] Address [address] [place] [address] Care Team Providers Care Fence Post Cutter Name Role Phone Maciel Wu MD Primary Care Provider Shahzad Cavazos Unavailable [phone] Allergies No Known Allergies Reason For Referral [...] primary osteoarthritis of the ankle and/or foot (286313500) Primary osteoarthritis, right ankle and foot (M19.071) Active confirmed Problem Acquired hallux valgus (96778855) Hallux valgus (acquired), right foot (M20.11) Active confirmed Problem Non-pressure chronic ulcer of other part of right foot limited to breakdown of skin (L97.511) Active confirmed Problem Acquired hammer toe of right foot (9653744739373753 ) Other hammer toe(s) (acquired), right foot (M20.41) Active confirmed Problem Polyneuropathy due to type 2 diabetes mellitus (909824317) Type 2 diabetes mellitus with diabetic polyneuropathy (E11.42) Active confirmed Vital Signs Height 5ft6in in 02/26/2024 Weight 165 lbs 02/26/2024 BMI 26.63 kg/m2 02/26/2024 Procedures Procedure Date Ordered Date Performed Result Body Sit e 81255 I&D ABSCESS- SIMPLE,SINGLE 02/12/2024 N/A Encounters Encounter Location Date Provider Diagnosis [facility] [address] [address] 02/12/2024 Shahzad Novoa Type 2 diabetes mellitus with diabetic polyneuropathy E11.42 ; Tinea unguium B35.1 ; Skin disease L98.9 ; Hallux valgus (acquired), right foot M20.11 ; Ingrowing nail L60.0 ; Abscess, toe, right L02.611 and Cellulitis of right toe L03.031 [facility] [address] [address] 02/26/2024 Shahzad Novoa Type 2 diabetes mellitus with diabetic polyneuropathy E11.42 ; Tinea unguium B35.1 ; Skin disease L98.9 ; Hallux valgus (acquired), right foot M20.11 and Non-pressure chronic ulcer of other part of right foot limited to breakdown of skin L97.511 [facility] [place] [address] [facility] [address] [place] [address] 02/11/2024 [facility] [place] [address] [place] [address] 02/26/2024 [facility] Assessments Encounter Date Diagnosis (ICD Code) Assessment [...] X ray : Foot, right 3V 02/19/2017 63358 I&D ABSCESS- SIMPLE,SINGLE 024 [id number], Toes 07/10/2017 Insurance Providers Payer Name Payer Address Payer Phone Subscriber Number Group Number Insured Name Patient Relationship to Insured Coverage Start Date Coverage End Date [employer] [place] Medicare Advantage [address] [facility] [place] [id number] Tiffany Guadarrama Self - patient is the [...]
--- NOTE | 2025-02-01 09:09 | MHC.OFFWIV ---
Intake Vital Signs 02/01/25 09:16 Weight 168 lb BP 130/80 Blood Pressure Location Rt brachial Position Sitting Pulse 62 Pulse Source Pulse Oximeter Temp 98.6 F Temp Source Oral Pulse Oximetry (%) 98 Oxygen Delivery Method Room Air Intake Visit Reasons: EP UTI? Patient Tobacco Use Status: Never used Tobacco Allergies cefuroxime Adverse Reaction (Unknown, Verified 01/28/25 14:58) Diarrhea Medication List - Last Reconciled 02/01/25 by Conchita Juarez MD aspirin 81 mg PO DAILY blood sugar diagnostic As directed calcium carbonate (Calcium 500) 500 mg PO DAILY cetirizine (Zyrtec) 10 mg PO DAILY PRN dulaglutide (Trulicity) mg subcut fluticasone propionate 50 mcg/actuation sprays intranasal gabapentin 300 mg PO DAILY gabapentin 300 mg PO DAILY glipizide ER 2.5 mg PO DAILY glipizide ER 5 mg PO BID lisinopril 20 mg PO DAILY metformin ER 500 mg PO DAILY multivitamin (Daily Multi-Vitamin tablet) 1 tab PO DAILY omega 6-xwu-lre-fish oil 1,000 (120-180) mg (Fish Oil) 1 cap PO DAILY omeprazole 20 mg PO DAILY simvastatin 10 mg PO DAILY HPI EP UTI? HPI Details History - The patient is a 74-year-old female presenting with itching and burning sensation. Vaginal - The itching started before the burning sensation. - No recent antibiotic use reported. - The patient has a history of Type 2 Diabetes Mellitus. - Mentioned a previous similar episode of itching, with a possible diagnosis of yeast infection - Denies any urgency or frequency in urination. - History of bladder surgery with improved urgency issues post-surgery. - Glycated hemoglobin (A1c) level is 6.7, indicating controlled diabetes. Problem List - Candidiasis (Yeast Infection) - History of Bladder Surgery - Type 2 Diabetes Mellitus - dysuria Patient Instructions - Take the prescribed medications - Contact the office if symptoms persist or worsen. 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 Father No problems noted. Social History Housing: House Patient Tobacco Use Status: Never used Tobacco e-Cigarette/Vaping Use: Never Used service: No Current occupational status: retired Cognitive needs: No Hearing needs: No Vision needs: Yes (rx glasses) Physical Exam Vital Signs: Last Vital Signs Temp 98.6 F 02/01/25 09:16 Pulse 62 02/01/25 09:16 BP 130/80 02/01/25 09:16 Pulse Ox 98 02/01/25 09:16 Oxygen Delivery Method Room Air 02/01/25 09:16 Results AMB Urinalysis, Automated UA Leukoctes 15 Gunnar/uL Last Edit by MANUEL Loya on 02/01/25 09:23 UA Nitrite Negative Last Edit by MANUEL Loya on 02/01/25 09:23 UA Urobilinogen 0.2 mg/dL Last Edit by MANUEL Loya on 02/01/25 09:23 UA Protein 0 mg/dL Last Edit by MANUEL Loya on 02/01/25 09:23 UA pH 6.0 Last Edit by MANUEL Loya on 02/01/25 09:23 UA Blood 0 Julio/uL Last Edit by MANUEL Loya on 02/01/25 09:23 UA Specific [place] 1.015 Last Edit by MANUEL Loya on 02/01/25 09:23 UA Ketone Negative Last Edit by MANUEL Loya on 02/01/25 09:23 UA Bilirubin 1 mg/dL Last Edit by MANUEL Loya on 02/01/25 09:23 UA Glucose 0 mg/dL Last Edit by MANUEL Loya on 02/01/25 09:23 Results Reviewed Results Reviewed: Laboratory Last Values Urine pH (Auto) 6.0 02/01/25 09:22 Specific [place] (Auto) 1.015 02/01/25 09:22 Urine Protein (Auto) 0 mg/dL 02/01/25 09:22 Glucose (UA)(Auto) 0 mg/dL 02/01/25 09:22 Urine Ketones (Auto) Negative 02/01/25 09:22 Urine Blood (Auto) 0 Julio/uL 02/01/25 09:22 Urine Nitrite (Auto) Negative 02/01/25 09:22 Urine Bilirubin (Auto) 1 mg/dL 02/01/25 09:22 Urine Urobilinogen (Auto) 0.2 mg/dL 02/01/25 09:22 Leukocyte Esterase (Auto) 15 Gunnar/uL 02/01/25 09:22 Assessment & Plan Assessment & Plan (1) Vaginal itching: Code(s): N89.8 - Other specified noninflammatory disorders of vagina (2) Dysuria: Code(s): R30.0 - Dysuria Plan History - The patient is a 74-year-old female presenting with itching and burning sensation. Vaginal - The itching started before the burning sensation. - No recent antibiotic use reported. - The patient has a history of Type 2 Diabetes Mellitus. - Mentioned a previous similar episode of itching, with a possible diagnosis of yeast infection - Denies any urgency or frequency in urination. - History of bladder surgery with improved urgency issues post-surgery. - Glycated hemoglobin (A1c) level is 6.7, indicating controlled diabetes. Problem List - Candidiasis (Yeast Infection) - History of Bladder Surgery - Type 2 Diabetes Mellitus - dysuria Patient Instructions - Take the prescribed medications - Contact the office if symptoms persist or worsen. Orders: Orders AMB Urinalysis Automated Today Z13.9 - Encounter for screening, unspecified Medications: New nitrofurantoin macrocrystal must administer with a meal/food 100 mg PO BID 3 days 6 caps 0RF fluconazole may repeat second dose 72 hrs after first dose if symptoms persist 150 mg PO Q3D 2 tabs 0RF 2 doses Coding Level of Care Code Est Pt Level 3 (49949) Diagnoses Vaginal itching N89.8 Dysuria R30.0
[2025-02-01 09:16] VITALS: BP 130/80; PULSE 62; TEMP 37; O2SAT 98
== END 2025-02-01 09:28 | disposition home or self-care (01) ==
PROVIDERS: PCP Internal Medicine; Visit Provider Internal Medicine
DX: N89.8 Other specified noninflammatory disorders of vagina (principal); R30.0 Dysuria; Z13.9 Encounter for screening, unspecified

== ENCOUNTER → 2025-02-01 08:48 | Outpatient (BNVA) | payer MEDICARE, SELFPAY | PROVIDERS: PCP Internal Medicine; Visit Provider Internal Medicine | DX: N89.8 Other specified noninflammatory disorders of vagina (principal); R30.0 Dysuria | CPT/HCPCS: 81003; 99212 ==

== ENCOUNTER 2025-02-09 14:16 | Outpatient (AMB) | payer MEDICARE, SELFPAY ==
--- NOTE | 2025-02-09 14:20 | MHC.PC.OV ---
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 Accompanied by: Self / Same As Patient Allergies cefuroxime Adverse Reaction (Unknown, Verified 02/09/25 14:35) Diarrhea Medication List - Last Reconciled 02/09/25 by Nury Lamb PA-C aspirin 81 mg PO DAILY blood sugar diagnostic As directed calcium carbonate (Calcium 500) 500 mg PO DAILY cetirizine (Zyrtec) 10 mg PO DAILY PRN dulaglutide (Trulicity) mg subcut fluconazole 150 mg PO Q3D 2 doses fluticasone propionate 50 mcg/actuation sprays intranasal gabapentin 300 mg PO DAILY glipizide ER 5 mg PO BID lisinopril 20 mg PO DAILY metformin ER 500 mg PO DAILY multivitamin (Daily Multi-Vitamin tablet) 1 tab PO DAILY nitrofurantoin monohyd/m-cryst 100 mg 100 mg PO BID omega 2-ydz-kjj-fish oil 1,000 (120-180) mg (Fish Oil) 1 cap PO DAILY omeprazole 20 mg PO DAILY simvastatin 10 mg PO DAILY Tobacco use date assessed: 12/20/24 Dental Screening Dental Screen Date: 12/20/24 HPI Rectal pain HPI Details The patient is a 74-year-old female presenting with rectal pain. The onset of the pain was approximately two weeks ago, with no identifiable precipitating event. She describes the pain as localized to the left buttocks, near the bone, and not within the rectum itself. The patient has a medical history of hypertension and diabetes mellitus, both of which are currently managed with medications. She also has a history of sciatica, though she reports that the current pain is distinct from her previous experiences with sciatica. Her bowel habits have changed recently, with movements occurring every two to three days instead of daily. The patient's last colonoscopy was conducted in 2017. Medications include aspirin and gabapentin. She reports taking only Tylenol for pain relief due to previous advisories against other medications because of her blood pressure, though she is unsure of the specific reasons. The patient denies any black or bloody stools and reports no abdominal pain. She denies any recent falls or injuries that she can recall. She reports this does not feel like her sciatica pain. She denies any rashes. She denies any other complaints or concerns. [facility] Medical History (Updated 02/09/25 @ 15:00 by Nury Lamb PA-C) Left hip pain Left buttock pain Sciatica Diabetes mellitus HTN (hypertension) Surgical History History of colonoscopy (~05/09/17) Hx of bladder repair surgery History of surgery H/O vitrectomy H/O: knee surgery History of back surgery History of tubal ligation Family History Mother No problems noted. Father No problems noted. Social History Housing: House Patient Tobacco Use Status: Never used Tobacco e-Cigarette/Vaping Use: Never Used service: No Current occupational status: retired Cognitive needs: No Hearing needs: No Vision needs: Yes (rx glasses) Questionnaire PHQ-9 Over the last 2 weeks, how often have you been bothered by any of the following problems? 1. Little interest or pleasure in doing things: not at all 2. Feeling down, depressed, or hopeless: not at all 3. Trouble falling or staying asleep, or sleeping too much: not at all 4. Feeling tired or having little energy: not at all 5. Poor appetite or overeating: not at all 6. Feeling bad about yourself - or that you are a failure or have let yourself or your family down: not at all 7. Trouble concentrating on things, such as reading the newspaper or watching television: not at all 8. Moving or speaking so slowly that other people could have noticed. Or the opposite - being so fidgety or restless that you have been moving around a lot more than usual: not at all 9. Thoughts that you would be better off or of hurting yourself in some way: not at all Total score: 0 Depression Screening Interpretation: Negative Depression Screening Done: Yes 75550 - PHQ-9 Billing: Yes Source: Developed by Drs. Lasha Park, Laina Richmond, Vamshi Pink and colleagues, with an educational lurdes from [employer]. Thrive Questionnaire Date Thrive assessed: 12/20/24 I am a: Patient Within the past 12 months, did the food you bought not last and you didn't have the money to get more?: Never true Within the past 12 months, did you worry whether your food would run out before you got money to buy more?: Never true Do you have trouble paying for medicines?: No Do you have trouble getting transportation to medical appointments?: No Do you have trouble paying your heating and electricity bill?: No Do you have trouble taking care of your child, family member or friend?: No Do you have trouble with day-to-day activities such as bathing, preparing meals, shopping, managing finances, etc.?: No Are you currently unemployed and looking for a job?: No Are you interested in more education?: No THRIVE Score: 0 AUDIT C Alcohol Use Questionnaire (AUDIT-C) 1. How often do you have a drink containing alcohol?: Never 3. How often do you have six or more drinks on one occasion?: Never Total Score: 0 Score Reviewed/Action Taken: No BONI-7 AMB Questionnaire BONI-7 Date BONI - 7 assessed: 12/20/24 Feeling nervous, anxious, or on edge: 0 = Not at all Not being able to stop or control worryin = Not at all Worrying too much about different things: 0 = Not at all Trouble relaxin = Not at all Being so restless that it is hard to sit still: 0 = Not at all Becoming easily annoyed or irritable: 0 = Not at all Feeling afraid as if something awful might happen: 0 = Not at all Total BONI-7 score (0-4 normal; 5-9 mild; 10-14 moderate; 15-21 severe): 0 Source: Developed by Drs. Lasha Park, Vamshi Ferrera and colleagues, with an educational lurdes from [employer]. BONI-7 Assessment Billing BONI-7 Assessment Tool: BONI-7 Assessment 48061 Review of Systems Const Details: - Gastrointestinal: Denies black or bloody stools. - Neurological: Denies symptoms consistent with sciatica. - Musculoskeletal: Reports rectal pain localized to the buttocks, near the bone. - Gastrointestinal: Reports a change in bowel habits with bowel movements occurring every two to three days. - General: Denies recent falls or injuries. Physical exam (Primary Care) Vital Signs: Last Vital Signs Temp 97.6 F 02/09/25 14:24 Pulse 72 02/09/25 14:24 BP 152/90 H 02/09/25 14:24 Pulse Ox 99 02/09/25 14:24 Oxygen Delivery Method Room Air 02/09/25 14:24 BMI result Body Mass Index 26.3 Tobacco/Smoking Status: Tobacco use Status Tobacco use date assessed 12/20/24 02/09/25 14:22 Patient Tobacco Use Status Never used Tobacco 02/09/25 14:22 e-Cigarette/Vaping Use Never Used 02/09/25 14:22 PHQ-9: PHQ-9 Score PHQ-9: Total score 0 02/09/25 14:22 Depression Screening Interpretation: Negative Thrive Assessment: Date of Thrive Assessment Date Thrive assessed 12/20/24 02/09/25 14:22 Const Other: Appearance: Alert. Oriented X3. No acute distress. Head: Normal external exam. Normocephalic. Atraumatic. Eyes: Pupils are equal, round, and reactive to light. Extraocular movements intact. Conjunctiva and sclera normal. Eyelids normal. Throat: Pharynx normal. Uvula midline. Moist mucous membranes. Neck: Normal inspection. Neck supple. Full range of motion. Cardiovascular: Normal heart rate and rhythm. Respiratory: No respiratory distress. Painless inspiration. Abdomen: Soft and nontender. : Patient noted to have pain to left gluteus/buttocks. There is no rectal pain. No obvious hemorrhoids, abscess, rashes, signs of infection, bruising or any abnormalities noted. Patient has good range of motion of the left hip although reports pain with movement. No joint effusions and no lower extremity edema or calf tenderness noted bilaterally. Back: Full range of motion noted. Skin: Skin warm and dry. Normal skin color. Normal skin turgor. No rashes/lesions/lacerations noted. Extremities: No lower extremity edema. Extremities exhibit normal range of motion. Extremities nontender. Neuro: Oriented X 3. No motor deficit. No sensory deficit. Reflexes normal. Coding Level of Care Code Est Pt Level 4 (75886) Complex EM visit Add On G2211 Diagnoses Left buttock pain M79.18 Left hip pain M25.552 Diabetes mellitus E11.9 Sciatica M54.30 HTN (hypertension) I10 Additional Codes PHQ-9 - 71164 - PHQ-9 Billing: Yes ([id number]) BONI-7 Assessment Billing - BONI-7 Assessment Tool: BONI-7 Assessment 40860 ([id number]) Assessment & Plan Assessment & Plan (1) Left buttock pain: Code(s): M79.18 - Myalgia, other site Category: Medical Plan: The patient is prescribed meloxicam for potential arthritis or tendonitis and Flexeril as a muscle relaxer to manage pain in the left buttock. (2) Left hip pain: Code(s): M25.552 - Pain in left hip Category: Medical Plan: The patient is prescribed meloxicam for potential arthritis or tendonitis and Flexeril as a muscle relaxer to manage pain in the left buttock. (3) Diabetes mellitus: Code(s): E11.9 - Type 2 diabetes mellitus without complications Category: Medical Plan: Management remains stable; A1c level today 6.4 at goal while the patient is currently on Trulicity weekly, glipizide 5 mg b.i.d., metformin extended release 500 mg daily. additional blood tests are planned for cholesterol, vitamin B12, and vitamin D levels. Condition is chronic and stable will continue to monitor. (4) Sciatica: Code(s): M54.30 - Sciatica, unspecified side Category: Medical Plan: No additional management required at this time unless symptoms change. (5) HTN (hypertension): Code(s): I10 - Essential (primary) hypertension Category: Medical Plan: Current medication management simvastatin 10 mg daily, lisinopril 20 mg daily, aspirin 81 mg daily continues with a reassurance about the safe use of NSAIDs alongside aspirin. Plan Plan Patient was informed and verbally consented to the use of an ambient scribe for clinic note documentation during this visit. 1. Rectal Pain The patient is prescribed meloxicam for potential arthritis or tendonitis and Flexeril as a muscle relaxer to manage pain in the left buttock. 2. Hypertension Current medication management continues with a reassurance about the safe use of NSAIDs alongside aspirin. 3. Diabetes Mellitus Management remains stable; additional blood tests are planned for cholesterol, vitamin B12, and vitamin D levels. 4. Sciatica No additional management required at this time unless symptoms change. I discussed with the patient the likely diagnosis of musculoskeletal pain possibly related to arthritis or tendonitis. We reviewed the management plan of using meloxicam and a muscle relaxer to alleviate her symptoms. I explained the benefits of these medications in reducing pain and improving mobility, and we discussed potential side effects such as drowsiness with the muscle relaxer. I advised her to avoid activities like driving or consuming alcohol while using the muscle relaxer. We also discussed her past medical history of hypertension and diabetes, confirming that her current management is appropriate. I reassured her that using NSAIDs with aspirin is safe, contrary to previous advice she had received. I recommended follow-up blood tests to monitor her overall health status. The patient is informed about the x-ray order, which she can complete at her convenience. A follow-up appointment will be scheduled after the x-ray results are available. Orders: Orders XR hip LT w PEL1V Today M25.552 - Pain in left hip, M79.18 - Myalgia, other site TSH reflex Free T4 Today Z00.00 - Encounter for general adult medical examination without abnormal findings Lipid Panel Today Z00.00 - Encounter for general adult medical examination without abnormal findings XR sacrum coccyx min 2V Today M25.552 - Pain in left hip, M79.18 - Myalgia, other site Hemoglobin A1c Today Z00.00 - Encounter for general adult medical examination without abnormal findings Magnesium Today Z00.00 - Encounter for general adult medical examination without abnormal findings Vitamin B12 and Folate Today Z00.00 - Encounter for general adult medical examination without abnormal findings Vitamin D 25-OH Total Today Z00.00 - Encounter for general adult medical examination without abnormal findings Medications: New cyclobenzaprine 5 mg PO Q8H 30 tabs 0RF meloxicam 15 mg PO DAILY 30 tabs 0RF pain Patient Instructions: - Take meloxicam once daily as prescribed. - Use the muscle relaxer at night to manage pain; avoid driving or alcohol while using it. - Complete x-ray imaging at your convenience. - Schedule and complete follow-up blood tests for cholesterol, vitamin B12, and vitamin D. - Monitor your blood pressure regularly. - Contact the office if symptoms worsen or new symptoms arise.
[2025-02-09 14:24] VITALS: BP 152/90; PULSE 72; TEMP 36.4; O2SAT 99; BMI 26.3
--- OUTSIDE RECORDS SUMMARY | 2025-02-09 15:10 | XMS_ITS ---
[facility] Organization [facility] Address [address] [place] [address] Care Team Providers Care Supervisor Dairy Sanitation Name Role Phone Maciel Wu MD Primary Care Provider Shahzad Cavazos Unavailable [phone] Allergies No Known Allergies REASON FOR VISIT [...] 02/26/2024 Encounters Encounter Location Date Provider Diagnosis [facility] [place] [address] [place] [address] 02/26/2024 Shahzad Novoa Type 2 diabetes mellitus [...] symptoms of infection or any untoward reactions (37220) Progress Notes * Tiffany LORDDOB: [birth year] (74 yo F)Acc No.[id number]:02/26/2024 Progress Notes Patient:?Tiffany LORD Provider:?Shahzad Novoa DPM :1950???Age:73 Y???Sex:Female D ate:02/26/2024 Address:[address] [place], [place] [id number] Pcp:Maciel Wu MD Subjective: * Chief Complaints: * ???Last PCP Visit: 01/28/24Po ssible InfectionUlcer(s) * HPI: ???At Risk footcare:?Pt States Last PCP Visit:?Date?10/18/2023 ???Skin problems:?Nature:?tender, redness.?Location:?Right , [facility].?Duration:?a few months.?Onset/Cause:?unknown.?Course:?improved.?Aggravated by:?any pressure.? * [...] desiree. ?Marital status: . ?Occupation: Retired from [employer]. * Medications:?TakingAspirin 8 1 MG Tablet Chewable [...] symptoms of infection or any untoward reactions (66086).? * Procedure Codes:?71576 ACTIV E WOUND CARE/20 CM OR < * Follow Up:?prn * Images: * Sign off status: Completed true * Provider:?Shahzad Novoa DPM Date:? 024 Generated for Merle meyer/Lisette/Prakash on:?02/09/2025 03:10 PM EDT History and Physical Notes * [...]
== END 2025-02-09 14:49 | disposition home or self-care (01) ==
LOC: HO.HMCSH 14:16
PROVIDERS: PCP Internal Medicine; Visit Provider Physician Assistant Medical
DX: M79.18 Myalgia, other site (principal); M25.552 Pain in left hip; E11.9 Type 2 diabetes mellitus without complications; M54.30 Sciatica, unspecified side; I10 Essential (primary) hypertension

== ENCOUNTER → 2025-02-09 14:16 | Outpatient (BNVA) | payer MEDICARE, SELFPAY | PROVIDERS: PCP Internal Medicine; Visit Provider Physician Assistant Medical | DX: M79.18 Myalgia, other site (principal); M25.552 Pain in left hip; E11.9 Type 2 diabetes mellitus without complications; I10 Essential (primary) hypertension; M54.30 Sciatica, unspecified side; Z79.82 Long term (current) use of aspirin; Z79.84 Long term (current) use of oral hypoglycemic drugs; Z79.85 Long-term (current) use of injectable non-insulin antidiabetic drugs; Z79.899 Other long term (current) drug therapy; Z13.31 Encounter for screening for depression | CPT/HCPCS: 96127; 99212 ==

== ENCOUNTER 2025-02-10 08:17 | Outpatient (REF) | payer MEDICARE, SELFPAY ==
--- NOTE | ~2025-02-10 | XR_ITS ---
EXAMINATION: XR SACRUM COCCYX 2 OR MORE VIEWS HISTORY: M25.552 - Pain in left hip COMPARISON: There are no prior studies for comparison. FINDINGS: Three views of the sacrum and coccyx are submitted. Osseous mineralization is normal. No fracture or lytic lesion is identified. There is bilateral hip joint space narrowing, right greater than left. There is degenerative disc disease of the lower lumbar spine. XR/XR sacrum coccyx min 2V IMPRESSION: No evidence of fracture of the sacrum. Electronically signed by: Lasha Taveras MD 02/10/2025 09:27 AM EDT
--- NOTE | ~2025-02-10 | XR_ITS ---
EXAMINATION: XR HIP 1 VIEW LEFT WITH PELVIS HISTORY: M79.18 - Myalgia, other site COMPARISON: There are no prior studies for comparison. FINDINGS: A single AP view of the pelvis and two views of the left hip are submitted. Osseous mineralization is normal. There is no fracture or dislocation. There is mild joint space narrowing on the left and moderate joint space narrowing on the right. The soft tissues are unremarkable. XR/XR hip LT w PEL1V IMPRESSION: Joint space narrowing of both hips, right greater than left. Electronically signed by: Lasha Taveras MD 02/10/2025 09:25 AM EDT
--- OUTSIDE RECORDS SUMMARY | 2025-02-10 08:25 | XMS_ITS | Patient Health Record ---
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 Name Role Phone Maciel Wu MD Primary Care Provider Shahzad Cavazos Unavailable [phone] Allergies No Known Allergies Reason For Referral [...] primary osteoarthritis of the ankle and/or foot (856405123) Primary osteoarthritis, right ankle and foot (M19.071) Active confirmed Problem Acquired hallux valgus (54095504) Hallux valgus (acquired), right foot (M20.11) Active confirmed Problem Non-pressure chronic ulcer of other part of right foot limited to breakdown of skin (L97.511) Active confirmed Problem Acquired hammer toe of right foot ([id number] ) Other hammer toe(s) (acquired), right foot (M20.41) Active confirmed Problem Polyneuropathy due to type 2 diabetes mellitus (849642633) Type 2 diabetes mellitus with diabetic polyneuropathy (E11.42) Active confirmed Vital Signs Height 5ft6in in 02/26/2024 Weight 165 lbs 02/26/2024 BMI 26.63 kg/m2 02/26/2024 Procedures Procedure Date Ordered Date Performed Result Body Sit e 40718 I&D ABSCESS- SIMPLE,SINGLE 02/12/2024 N/A Encounters Encounter Location Date Provider Diagnosis [facility] [address] [address] 02/12/2024 Shahzad Novoa Type 2 diabetes mellitus with diabetic polyneuropathy E11.42 ; Tinea unguium B35.1 ; Skin disease L98.9 ; Hallux valgus (acquired), right foot M20.11 ; Ingrowing nail L60.0 ; Abscess, toe, right L02.611 and Cellulitis of right toe L03.031 [facility] [address] [address] 02/26/2024 Shahzad Novoa Type 2 diabetes mellitus with diabetic polyneuropathy E11.42 ; Tinea unguium B35.1 ; Skin disease L98.9 ; Hallux valgus (acquired), right foot M20.11 and Non-pressure chronic ulcer of other part of right foot limited to breakdown of skin L97.511 [facility] [place] [address] [facility] [address] [place] [address] 02/11/2024 [facility] [place] [address] [place] [address] 02/26/2024 [facility] Assessments Encounter Date Diagnosis (ICD Code) [...] X ray : Foot, right 3V 02/19/2017 07623 I&D ABSCESS- SIMPLE,SINGLE 024 [id number]-Fjkxzeiuz, Toes 07/10/2017 Insurance Providers Payer Name Payer Address Payer Phone Subscriber Number Group Number Insured Name Patient Relationship to Insured Coverage Start Date Coverage End Date [employer] [address] [place] [address] [id number] Tiffany Guadarrama Self - patient is the [...]
[2025-02-10 10:44] LABS: Estimated Average Glucose 151 mg/dL; Hemoglobin A1C 189.4294 umol/L; Hemoglobin A1c % 6.9 % (<6.0); Total Hemoglobin (HGBA1C) 3632.3357 umol/L
[2025-02-10 11:14] LABS: Cholesterol 147 mg/dL (<200); HDL Cholesterol 52 mg/dL (>40); LDL Cholesterol Calculated 66 mg/dL (<100); Magnesium 1.8 mg/dL (1.6-2.6); Triglycerides 145 mg/dL (<150)
[2025-02-10 11:26] LABS: TSH reflex Free T4 2.13 uIU/mL (0.32-4.0); Vitamin D 25-OH Total 64.4 ng/mL (>30)
[2025-02-10 11:39] LABS: Folate 14.5 ng/mL (> or = 4.0); Vitamin B12 755 pg/mL (200-900)
== END 2025-02-10 08:18 | disposition home or self-care (01) ==
LOC: HO.HMGCX 08:17
PROVIDERS: PCP Internal Medicine; Visit Provider Physician Assistant Medical
DX: Z00.00 Encounter for general adult medical examination without abnormal findings (principal); M79.18 Myalgia, other site; M25.552 Pain in left hip; Z13.1 Encounter for screening for diabetes mellitus
CPT/HCPCS: 36415; 72220; 73502; 80061; 82306; 82607; 82746; 83036; 83735; 84443

== ENCOUNTER → 2025-02-10 08:37 | Outpatient (BNV) | payer MEDICARE, SELFPAY | PROVIDERS: PCP Internal Medicine; Visit Provider Radiology Diagnostic Radiology | DX: M16.12 Unilateral primary osteoarthritis, left hip (principal); M51.360 Other intervertebral disc degeneration, lumbar region with discogenic back pain only | CPT/HCPCS: 72220; 73502 ==

== ENCOUNTER 2025-06-21 13:05 | Outpatient (AMB) | payer MEDICARE, SELFPAY ==
--- NOTE | 2025-06-21 13:06 | A.OFFPC_ITS ---
Vital Signs 06/21/25 13:07 Height 5 ft 6 in Weight 168 lb BMI 27.1 BP 123/59 L Blood Pressure Location Rt brachial Position Sitting Respiration 16 Pulse 80 Pulse Source Pulse Oximeter Temp 97.1 F Temp Source Temporal Artery Scan Pulse Oximetry (%) 98 Oxygen Delivery Method Room Air Intake Visit Reasons: PE- see comments Retail Wireless Sales Representative Required: No Accompanied by: Self / Same As Patient Allergies cefuroxime Adverse Reaction (Unknown, Verified 06/21/25 17:22) Diarrhea Medication List - Last Reconciled 06/21/25 by Nury Lamb PA-C aspirin 81 mg PO DAILY blood sugar diagnostic As directed blood sugar diagnostic (FreeStyle Lite Strips) Check glucose 3 times a day with meals calcium carbonate (Calcium 500) 500 mg PO DAILY cetirizine (Zyrtec) 10 mg PO DAILY PRN dulaglutide (Trulicity) 3 mg (0.5 mL) subcut QWEEK 90 days fexofenadine (Mellisa Allergy) 180 mg PO DAILY fluticasone propionate 50 mcg/actuation sprays intranasal gabapentin 300 mg PO DAILY glipizide ER 5 mg PO BID lisinopril 20 mg PO DAILY metformin ER 500 mg PO DAILY multivitamin (Daily Multi-Vitamin tablet) 1 tab PO DAILY omega 2-lpe-yqd-fish oil 1,000 (120-180) mg (Fish Oil) 1 cap PO DAILY omeprazole 20 mg PO DAILY simvastatin 10 mg PO DAILY Tobacco use date assessed: 06/21/25 Fall risk assessment: No Falls in past year Dental Screening Dental Screen Date: 06/21/25 Did you have a dental visit in the last 12 months?: Yes Did you have a dental problem in the last 6 months where you did not have access to dental care?: No Was dental information given to patient?: Patient has dentist HPI PE- see comments HPI Details The patient is a 75-year-old female presenting for physical examination and follow-up on chronic medical conditions. The patient has a history of diabetes mellitus, with a recent hemoglobin A1c of 6.6, indicating good control. She is currently on Trulicity, metformin, and glipizide for diabetes management. The patient reports changes in bowel habits, experiencing infrequent bowel movements followed by large evacuations. A previous colonoscopy in 2017 revealed sigmoid diverticulosis and internal hemorrhoids. The patient experiences left foot pain, with swelling and tenderness noted on examination. She denies any recent trauma or injury to the foot. The patient has allergic rhinitis, currently managed with Zyrtec, but will trial Mellisa to see if it provides better symptom control. Social History - Lives alone and manages daily activiti es independently [facility] Medical History (Updated 06/21/25 @ 17:26 by Nury Lamb PA-C) Annual physical exam Allergic rhinitis Diverticulosis History of mammogram (~06/01/25) Left foot pain Constipation Left hip pain Left buttock pain Sciatica Diabetes mellitus HTN (hypertension) Surgical History History of colonoscopy (~05/09/17) Hx of bladder repair surgery History of surgery H/O vitrectomy H/O: knee surgery History of back surgery History of tubal ligation Family History Mother No problems noted. Father No problems noted. Social History Housing: House Patient Tobacco Use Status: Never used Tobacco e-Cigarette/Vaping Use: Never Used service: No Current occupational status: retired Cognitive needs: No Hearing needs: No Vision needs: Yes (rx glasses) Questionnaire PHQ-9 Over the last 2 weeks, how often have you been bothered by any of the following problems? 1. Little interest or pleasure in doing things: not at all 2. Feeling down, depressed, or hopeless: not at all 3. Trouble falling or staying asleep, or sleeping too much: not at all 4. Feeling tired or having little energy: not at all 5. Poor appetite or overeating: not at all 6. Feeling bad about yourself - or that you are a failure or have let yourself or your family down: not at all 7. Trouble concentrating on things, such as reading the newspaper or watching television: not at all 8. Moving or speaking so slowly that other people could have noticed. Or the opposite - being so fidgety or restless that you have been moving around a lot more than usual: not at all 9. Thoughts that you would be better off or of hurting yourself in some way: not at all Total score: 0 Depression Screening Interpretation: Negative Depression Screening Done: Yes 49283 - PHQ-9 Billing: Yes Source: Developed by Drs. Lasha Park, Laina Richmond, Vamshi Pink and colleagues, with an educational lurdes from [employer]. Thrive Questionnaire Date Thrive assessed: 06/21/25 I am a: Patient Within the past 12 months, did the food you bought not last and you didn't have the money to get more?: Never true Within the past 12 months, did you worry whether your food would run out before you got money to buy more?: Never true Do you have trouble paying for medicines?: No Do you have trouble getting transportation to medical appointments?: No Do you have trouble paying your heating and electricity bill?: No Do you have trouble taking care of your child, family member or friend?: No Do you have trouble with day-to-day activities such as bathing, preparing meals, shopping, managing finances, etc.?: No Are you currently unemployed and looking for a job?: No Are you interested in more education?: No THRIVE Score: 0 AUDIT C Alcohol Use Questionnaire (AUDIT-C) 1. How often do you have a drink containing alcohol?: Never 3. How often do you have six or more drinks on one occasion?: Never Total Score: 0 Score Reviewed/Action Taken: No BONI-7 AMB Questionnaire BONI-7 Date BONI - 7 assessed: 06/21/25 Feeling nervous, anxious, or on edge: 0 = Not at all Not being able to stop or control worryin = Not at all Worrying too much about different things: 0 = Not at all Trouble relaxin = Not at all Being so restless that it is hard to sit still: 0 = Not at all Becoming easily annoyed or irritable: 0 = Not at all Feeling afraid as if something awful might happen: 0 = Not at all Total BONI-7 score (0-4 normal; 5-9 mild; 10-14 moderate; 15-21 severe): 0 Source: Developed by Drs. Lasha Park, Vamshi Ferrera and colleagues, with an educational lurdes from [employer]. BONI-7 Assessment Billing BONI-7 Assessment Tool: BONI-7 Assessment 34781 Review of Systems Const Details: - General: Reports fatigue, denies recent falls - Cardiovascular: Denies chest pain or dyspnea - Gastrointestinal: Reports infrequent bowel movements, denies abdominal pain - Musculoskeletal: Reports left foot pain - Neurological: Denies dizziness - Respiratory: Denies cough or wheezing All systems reviewed & are unremarkable except as noted in HPI and below Physical exam (Primary Care) Vital Signs: Last Vital Signs Temp 97.1 F 06/21/25 13:07 Pulse 80 06/21/25 13:07 Resp 16 06/21/25 13:07 BP 123/59 L 06/21/25 13:07 Pulse Ox 98 06/21/25 13:07 Oxygen Delivery Method Room Air 06/21/25 13:07 Care Plan Goal for BP management: <140/90 normal at goal BMI result Body Mass Index 27.1 BMI Assessment/Plan discussion: High BMI High, discussed plan: lifestyle, weight reduction, dietary, physical activity, alcohol moderation and other Tobacco/Smoking Status: Tobacco use Status Tobacco use date assessed 06/21/25 06/21/25 13:26 Patient Tobacco Use Status Never used Tobacco 06/21/25 13:26 e-Cigarette/Vaping Use Never Used 06/21/25 13:26 PHQ-9: PHQ-9 Score PHQ-9: Total score 0 06/21/25 14:02 Depression Screening Interpretation: Negative Thrive Assessment: Date of Thrive Assessment Date Thrive assessed 06/21/25 06/21/25 13:26 Const Other: Appearance: Alert. Oriented X3. No acute distress. Head: Normal external exam. Normocephalic. Atraumatic. Eyes: Pupils are equal, round, and reactive to light. Extraocular movements intact. Conjunctiva and sclera normal. Eyelids normal. Ears: External auditory canal normal. Tympanic membranes normal. Throat: Pharynx normal. Uvula midline. Moist mucous membranes. Neck: Normal inspection. Neck supple. Full range of motion. No adenopathy. Thyroid Normal. No meningeal signs. No neck mass noted. Cardiovascular: Normal heart rate and rhythm. Heart sound normal. Slight murmur noted. Pulses normal throughout. Respiratory: No respiratory distress. Painless inspiration. Breath sounds n ormal. No wheezes/rales/rhonchi noted. Chest nontender. No accessory muscle usage noted or decreased air movement noted. Abdomen: Soft and nontender. Bowel sounds normal in all 4 quadrants. No distent ion noted. No organomegaly noted. No visible injury noted. Back: No costovertebral angle tenderness. Full range of motion noted. Skin: Skin warm and dry. Normal skin color. Normal skin turgor. No rash es/lesions/lacerations noted. Extremities: No lower extremity edema. Extremities exhibit normal range of motion. Extremities nontender. Left foot slightly swollen, tenderness noted on the side. Neuro: Oriented X 3. No motor deficit. No sensory deficit. Reflexes normal. Results AMB Hemoglobin A1c AMB Hemoglobin A1c 6.6 % Last Edit by MALDONADO Haley on 06/21/25 14:02 Results Reviewed Results Reviewed: Laboratory Last Values Hgb A1c (Clinic) 6.6 % (4.0-6.0) H 06/21/25 14:01 - Labs: Hemoglobin A1c 6.6% (January 2025), CBC normal, electrolytes within normal limits - Imaging: X-ray of left foot ordered Coding Level of Care Code Est Pt Level 4 (10298) Est Pt Prev Care >65y(65928) Diagnoses Annual physical exam Z00.00 Diabetes mellitus E11.9 Diverticulosis K57.90 Left foot pain M79.672 Allergic rhinitis J30.9 Additional Codes BONI-7 Assessment Billing - BONI-7 Assessment Tool: BONI-7 Assessment 05393 ([id number]) PHQ-9 - 18334 - PHQ-9 Billing: Yes ([id number]) Time Spent (min) 50 Assessment & Plan Assessment & Plan (1) Annual physical exam: Code(s): Z00.00 - Encounter for general adult medical examination without abnormal findings Category: Medical (2) Diabetes mellitus: Code(s): E11.9 - Type 2 diabetes mellitus without complications Category: Medical Plan: The patient's diabetes is currently well-controlled with a hemoglobin A1c of 6.6%. She is on Trulicity, metformin, and glipizide for management. Continued monitoring of blood glucose levels and A1c is recommended, with follow-up in six months. (3) Diverticulosis: Code(s): K57.90 - Diverticulosis of intestine, part unspecified, without perforation or abscess without bleeding Category: Medical Plan: The patient reports changes in bowel habits, with infrequent bowel movements followed by large evacuations. A referral to gastroenterology for further evaluation and management has been made. (4) Left foot pain: Code(s): M79.672 - Pain in left foot Category: Medical Plan: The patient reports left foot pain with swelling and tenderness noted on exam ination. An x-ray has been ordered to assess for any underlying issues. If pain persists and x-ray results are inconclusive, referral to a stock preparer may be considered. (5) Allergic rhinitis: Code(s): J30.9 - Allergic rhinitis, unspecified Category: Medical Plan: The patient is currently using Zyrtec for allergic rhinitis but will trial Mellisa to see if it provides better symptom control. A prescription for Mellisa has been provided. Plan Plan Patient was informed and verbally consented to the use of an ambient scribe for clinic note documentation during this visit. 1. Diabetes Mellitus The patient's diabetes is currently well-controlled with a hemoglobin A1c of 6.6%. She is on Trulicity, metformin, and glipizide for management. Continued monitoring of blood glucose levels and A1c is recommended, with follow-up in six months. 2. Sigmoid Diverticulosis And Internal Hemorrhoids The patient reports changes in bowel habits, with infrequent bowel movements followed by large evacuations. A referral to gastroenterology for further evaluation and management has been made. 3. Foot Pain The patient reports left foot pain with swelling and tenderness noted on examination. An x-ray has been ordered to assess for any underlying issues. If pain persists and x-ray results are inconclusive, referral to a stock preparer may be considered. 4. Allergic Rhinitis The patient is currently using Zyrtec for allergic rhinitis but will trial Mellisa to see if it provides better symptom control. A prescription for Mellisa has been provided. During the visit, we discussed the management of diabetes, emphasizing the importance of maintaining a hemoglobin A1c below 7%. I recommended a trial of Mellisa for allergic rhinitis to see if it offers better symptom control than Zyrtec. We also addressed the patient's bowel habits, with a referral to gastroenterology for further evaluation. An x-ray was ordered for the left foot to investigate the cause of pain and swelling. Orders: Orders AMB Hemoglobin A1c Today E11.9 - Type 2 diabetes mellitus without complications XR foot LT min 3V Today M79.672 - Pain in left foot Referrals Gastroenterology Referral K59.00 - Constipation, unspecified, Z12.11 - Encounter for screening for malignant neoplasm of colon Medications: New fexofenadine (Mellisa Allergy) 180 mg PO DAILY 90 tabs 3RF Patient Instructions: - Continue current diabetes medications and monitor blood glucose levels regularly. - Try Mellisa for allergy symptoms and discontinue Zyrtec. - Schedule an x-ray for the left foot and follow up with results. - Follow up with gastroenterology as referred for bowel habit evaluation. - Return for a follow-up appointment in six months.
[2025-06-21 13:07] VITALS: BP 123/59; PULSE 80; RESP 16; TEMP 36.2; O2SAT 98; BMI 27.1
--- OUTSIDE RECORDS SUMMARY | 2025-06-21 16:05 | XMS_ITS | Patient Health Record ---
Author Organization [facility] Address [address] [place] [address] Care Team Providers Care Drawing Instructor Name Role Phone Jazmin (RETIRED) Maciel GARCIA Primary Care Provide r Lasha Marte Unavailable [phone] Reason For Referral No Information Medications Medication SIG (Take, Route, Frequency, Duration) Notes Start Date End Date Status glipiZIDE ER 2.5 MG 1 tablet Orally Once a day Active metFORMIN HCl 500 MG 1 tablet with meals Orally Once a day Active Fluticasone Propionate 50 MCG/ACT 1 spray in each nostril Nasally Once a day Active Calcium 500 MG 1 tablet with meals Orally Twice a day Active Multivitamin Adult - 1 tablet Orally onc e a day Active ZyrTEC Allergy 10 MG 1 tablet Orally Onc e a day Active Simvastatin 10 MG 1 tablet in the even ing Orally Once a day Active Lisinopril 20 MG 1 tablet Orally twic e a day Active Immunizations Vaccine Route Administration Date Status Comme nts Influenza Unknown 07/16/2016 Administered Social History Tobacco Use: Social History Observation Description Date Details (start date - stop date) Never Smoker NA - NA Tobacco Use/Smoking Question Answer Notes Patient is a nonsmoker Alcohol Screen Question Answer Notes Did you have a drink containing alcohol in the p ast year? No Points 0 Interpretation Negative Section Notes: Nonsmoker; No sig alcohol Problems Problem Type SNOMED Code ICD Code Onset Dates Problem Status W/U Status Risk Notes Problem 040303987 Encounter for screening for malignant neoplasm of colon (Z12.11) Active confirmed Problem 176040407 Preprocedural examination (Z01.818) Active confirmed Plan Of Treatment Future Test Test Name Order Date COLONOSCOPY 02/07/2017 Insurance Providers Payer Name Payer Address Payer Phone Subscriber Number Group Number Insured Name Patient Relationship to Insured Coverage Start Date Coverage End Date [facility] [address] [place] [phone] [id number] BEATRICE LORD Self - patient is the insured Medical (General) History Medical History History ICD Code NIDDN Hypertension Denies VA,,CVA,Lung disease,renal diseas e Seasonal allergies Screening colonoscopy in 2006--hyperplastic polyp, sigmoid diverticulosis, internal hemorrhoids Surgical History Surgery Date(Month/Year) TUBAL LIGATION 1979 BACK SURGERY L5 1989 RIGHT ROTATOR CUFF 2003 RIGHT KNEE ARTHROSCOPIC 2008 VITRECTOMY LEFT EYE X2 2009 RETINECTOMY LEFT EYE X2 2010
--- OUTSIDE RECORDS SUMMARY | 2025-06-21 16:05 | XMS_ITS | Patient Health Record ---
Author Organization [facility] [place] Address [address] [facility] [place] [address] Care Team Providers Care Metal Temperer Name Role Phone Maciel Wu MD Primary Care Provider Unavaila Shahzad Cassidy Unavailable [phone] Allergies No Known Allergies Reason For Referral No Information Medications Medication SIG (Take, Route, Frequency, Duration) Notes Start Date End Date Status Doxycycline Monohydrate 100 MG 1 capsule Orally Once a day; Duration: 10 days Active Omeprazole 20 MG 1 [...] o r milk Orally Three times a day; Duration: 30 day(s) 2017 Unknown metFORMIN HCl 500 [...] primary osteoarthritis of the ankle and/or foot (249368033) Primary osteoarthritis, right ankle and foot (M19.071) Active confirmed Problem Acquired hallux valgus (35637176) Hallux valgus (acquired), right foot (M20.11) Active confirmed Problem Non-pressure chronic ulcer of other part of right foot limited to breakdown of skin (L97.511) Active confirmed Problem Acquired hammer toe of right foot (6930257718709514 ) Other hammer toe(s) (acquired), right foot (M20.41) Active confirmed Problem Polyneuropathy due to type 2 diabetes mellitus (633027879) Type 2 diabetes mellitus with diabetic polyneuropathy (E11.42) Active confirmed Plan Of Treatment Pending Test Test Name Order Date X ray : Foot, right 2V 05/26/2017 X ray : Foot, right 2V 06/09/2017 X ray : Foot, right 2V 07/10/2017 X ray : Foot, right 3V 02/19/2017 69228 I&D ABSCESS- SIMPLE,SINGLE 024 [id number]-Nlcsevguq, Toes 07/10/2017 Insurance Providers Payer Name Payer Address Payer Phone Subscriber Number Group Number Insured Name Patient Relationship to Insured Coverage Start Date Coverage End Date [employer] [place] [employer]vantage One [facility] [address] [facility] [place] [id number] [phone] [id number] Tiffany Guadarrama Self - patient is the insured Medical (General) History Medical History History ICD Code Back,Hip,and Knee pain Cholesterol Cataracts type II diabetes High blood pressure Neuropathy Measles Mumps Chicken pox Joint implants/screws Arthritis Numbness Surgical History Surgery Date(Month/Year) back surgery 1989 rotator cuff, right 2003 right knee arthroscopy 2007 retinectomy, left eye [id number] HT R2nd toe 05/22/2017 shoulder replacement 2022 bladder surgery 2020
== END 2025-06-21 13:57 | disposition home or self-care (01) ==
LOC: HO.HMCSH 13:08
PROVIDERS: PCP Internal Medicine; Visit Provider Physician Assistant Medical
DX: Z00.00 Encounter for general adult medical examination without abnormal findings (principal); E11.9 Type 2 diabetes mellitus without complications; K57.90 Diverticulosis of intestine, part unspecified, without perforation or abscess without bleeding; M79.672 Pain in left foot; J30.9 Allergic rhinitis, unspecified

== ENCOUNTER 2025-06-21 13:05 | Outpatient (REF) | payer MEDICARE, SELFPAY ==
--- NOTE | ~2025-06-21 | XR_ITS ---
EXAMINATION: XR FOOT 3 OR MORE VIEWS LEFT HISTORY: M79.672 - Pain in left foot COMPARISON: There are no prior studies available for comparison. FINDINGS: Three views of the left foot are submitted. Osseous mineralization is normal. There is no fracture or dislocation. There is mild degenerative change of the intertarsal joints. There is a tiny plantar calcaneal spur. The soft tissues are unremarkable. XR/XR foot LT min 3V IMPRESSION: Mild degenerative change of the intertarsal joints. Tiny plantar calcaneal spur. Electronically signed by: Lasha Taveras MD 06/21/2025 02:30 PM EDT
== END 2025-06-21 13:06 | disposition home or self-care (01) ==
LOC: HO.HMGCX 13:05
PROVIDERS: PCP Internal Medicine; Visit Provider Physician Assistant Medical
DX: Z00.00 Encounter for general adult medical examination without abnormal findings (principal); M79.672 Pain in left foot; E11.9 Type 2 diabetes mellitus without complications; J30.9 Allergic rhinitis, unspecified; K57.90 Diverticulosis of intestine, part unspecified, without perforation or abscess without bleeding; K64.8 Other hemorrhoids; K59.00 Constipation, unspecified; Z79.84 Long term (current) use of oral hypoglycemic drugs; Z79.899 Other long term (current) drug therapy
CPT/HCPCS: 73630; 83036; 96127; 99212; 99397

== ENCOUNTER → 2025-06-21 14:14 | Outpatient (BNV) | payer MEDICARE, SELFPAY | PROVIDERS: PCP Internal Medicine; Visit Provider Radiology Diagnostic Radiology | DX: M19.072 Primary osteoarthritis, left ankle and foot (principal) | CPT/HCPCS: 73630 ==

== ENCOUNTER 2025-07-08 12:59 | Outpatient (AMB) | payer MEDICARE, SELFPAY ==
--- OUTSIDE RECORDS SUMMARY | 2025-07-08 06:00 | XMS_ITS ---
Author Organization [facility] Chanel ventura [place] Address [address] [place] [address] Care Team Providers Care Shirt Sewer Name Role Phone Arnold Mortensentik Primary Care Provider Deshawn Rdz Unavailable [phone] Allergies No Known Allergies REASON FOR VISIT At Risk Footcare, Foot pain Medications Medication SIG (Take, Route, Frequency, Duration) Notes Start Date End Date Status Multivitamin Unknown Calcium 500 MG 1 tablet Orally Once a day Unknown Eliquis 2.5 MG Orally twice a day Unknown Aspirin 81 MG 1 tablet Orally Once a day Active ZyrTEC Allergy 10 MG 1 tablet Orally Onc e a day Unknown Gabapentin 300 MG Orally Once a day Active glipiZIDE ER 2.5 MG Orally Active metFORMIN HCl 500 MG 1tablet daily Orall y Once a day Active Simvastatin 10 MG 1 tab daily Orally O nce a day Active Fluticasone Propionate 50 MCG/ACT 1 spray in each nostril Nasally Once a day Unknown Lisinopril 20 MG 1 tablet Orally twic e daily Active Trulicity 3 MG/0.5ML as directed Subcutaneous Active Omeprazole 20 MG 1 capsule 30 minutes before morning meal Orally Once a day Active Social History Tobacco Use: Social History Observation Description Date Details (start date - stop date) Never Smoker NA - NA Alcohol Screen Question Answer Notes Did you have a drink containing alcohol in the p ast year? No Points 0 Interpretation Negative Tobacco use other than smoking: Question Answer Notes Are you an other tobacco user? No Tobacco Control (Standard) Question Answer Notes Tobacco use: Nonsmoker Additional Findings: Tobacco non-user Current no nsmoker AUDIT-C (Standard) Question Answer Notes Did you have a drink containing alcohol in the p ast year? No Points 0 Interpretation Negative Problems Problem Type SNOMED Code ICD Code Onset Dates Problem Status W/U Status Risk Notes Problem Polyneuropathy due to type 2 diabetes mellitus (155382878) Type 2 diabetes mellitus with diabetic polyneuropathy (E11.42) Active confirmed Problem Osteoarthritis of midtarsal joint of left foot (8386054042153053 ) Osteoarthritis of midtarsal joint of left foot (M19.072) Active confirmed Vital Signs Height 5ft6in in 07/08/2025 Weight 165 lbs 07/08/2025 BMI 26.63 kg/m2 07/08/2025 Blood pressure systolic 128 mm Hg 07/08/20 25 Blood pressure diastolic 65 mm Hg 025 Encounters Encounter Location Date Provider Diagnosis [facility] [address] [address] [place] [address] 07/08/2025 Deshawn Delon Type 2 diabetes mellitus with diabetic polyneuropathy E11.42 ; Pain in left foot M79.672 ; Pain in left ankle and joints of left foot M25.572 ; Bursitis of left foot M77.52 ; Osteoarthritis of midtarsal joint of left foot M19.072 and Neuritis M79.2 Assessments Encounter Date Diagnosis (ICD Code) Assessment Notes Treatment Notes Treatment Clinical Notes Section Notes 07/08/2025 Type 2 diabetes mellitus with diabetic polyneuropathy (ICD-10 - E11.42) 07/08/2025 Pain in left foot (ICD-10 - M79.672) 07/08/2025 Pain in left ankle and joints of left foot (ICD-10 - M25.572) 07/08/2025 Bursitis of left foot (ICD-10 - M77.52) 07/08/2025 Osteoarthritis of midtarsal joint of left foot (ICD-10 - M19.072) 07/08/2025 Neuritis (ICD-10 - M79.2) Plan Of Treatment Next Appt Details Follow Up: prn, Reason: Progress Notes * Tiffany LORDDOB: [birth year] (75 yo F)Acc No.[id number]:07/08/2025 Progress Note Patient: Betty Tiffany GUZMAN Provider: Donna Jernigan DPM :1950 A ge:75 Y S ex:Female Date:07/08/2025 Address:[address], [id number] Pcp:Yovani Mortensen Subjective: * Chief Complaints: * A t Risk FootcareFoot pain * HPI: A t Risk footcare: Pt States Last PCP Visit: D ate 0 06/02/2025 F oot Pain: Nature: a rachael, stiffness, swelling, throbbing. Location: O utside, Midfoot, LEFT. Duration: 2 months. Onset: u nknown, denies trauma. Course: w orse. Treatments: r est/alter normal daily activity, change in shoes, ice, medication ( tylenol, Icy hot ) . * ROS: G eneral/Constitutional: Nausea d enies. V omiting d enies. H galileo Thirst d enies. L oss appetite d enies. C hills d enies. F atigue d enies.?Fever d enies. N ight Sweats d enies. U nexplained weight loss d enies. U nexplained weight gain d enies. H EENTM: Dentures a dmits. D izziness d enies. G lasses/contacts a dmits. R etinopathy d enies. B lurred/double vision d enies. T MJ?denies. D ischarge/drainage d enies. I mplants d enies. S ore throat d enies. D ental implants d enies. H yazmin of hearing d enies. D ifficulty chewing/swallowing/speaking d enies. N ose bleeds d enies. S ore mouth d enies. ? R espiratory: On Oxygen d enies. P neumonia/pleurisy d enies.?Bronchitis d enies. E mphysema d enies. C oughing d enies. C ough blood?denies. S hortness of breath d enies. W heezing d enies. C ardiovascular: Pacemaker d enies. M SPUDDER d enies. W PW d enies. C HF d enies. H eart attack d enies. S eptal defect d enies. R apid beat d enies. C hest pain d enies. A trial Fib. d enies. M urmur/Palpitations d enies. G astrointestinal: Hemorrhoids d enies. S tomach/Abdominal pain d enies. D ark blood stool d enies. I rritable bowel d enies. C onstipation d enies. D iarrhea d enies. H ematology: Swelling d enies. C lots d enies. V aricose Veins a dmits. B ruising a dmits, on aspirin. B leeding problem a dmits, on anticoagulants. G enitourinary: Blood urine d enies. F requent/Painfu/urination/bladder control d enies. K idney stones d enies. I nfection (UTI) d enies. N ephropathy a dmits. s ex trans dis (STD) d enies. P rostate d enies. M usculoskeletal: Hammertoes a dmits. B unions d enies. B ack Pain d enies. M uscle Cramps/ Resting d enies. M uscle cramps / walking d enies.?Generalized aches and pains a dmits. W eakness d enies. I nteg.: Hogan d enies. S cars a dmits. C orns/calluses?admits. I ngrown nails a dmits. P ainful nails d enies. O pen Sores d enies. R ashes d enies. N eurologic: Difficulty sleeping d enies. B rain disorder d enies. N umbness a dmits. B alance trouble a dmits. C onfusion d enies. F ainting/blackouts d enies. T ingling a dmits, bilateral lower extremities, in the toes, that is mild, which is intermittent. T remors d enies. * Medical History: * Surgical History: b ack surgery 1990rotator cuff, right 2003right knee arthroscopy 2008retinectomy, left eye 2009-2010HT R2nd toe 05/22/2017shoulder replacement ladder surgery 2020 * Hospitalization/Major Diagno stic Procedure: D enies Past Hospitalization * Family History: M other: , foot problems, kidney liver disease, diagnosed with Diabetic - NIDDM, Unspecified essential hypertension, Unspecified heart disease. F ather: , diagnosed with Unspecified heart disease. S iblings: foot problems, diagnosed with Other malignant neoplasm of unspecified site, Diabetic - NIDDM, Unspecified essential hypertension. M aternal Grand Father: diagnosed with Other malignant neoplasm of unspecified site, Diabetic - NIDDM. M aternal aunt: diagnosed with Unspecified essential hypertension. * Social History: T obacco Use: T obacco use other than smoking A re you an other tobacco user? N o Tobacco Control (Standard) T obacco use: N onsmoker A dditional Findings: Tobacco non-user C urrent nonsmoker D rugs/Alcohol: D rugs H ave you used drugs other than those for medical reasons in the past 12 months? N o Alcohol Screen D id you have a drink containing alcohol in the past year? N o P oints 0 I nterpretation N egative M iscellaneous: C affeine: yes, Coffee 2 cups per day. Children: yes, 3 childbirths. Exercise: yes, walk, read, desiree. Marital status: . Occupation: Retired from [employer]. D rug/Alcohol: A MAGNOLIA-C (Standard) D id you have a drink containing alcohol in the past year? N o P oints 0 I nterpretation N egative * Medications: T akingAspirin 81 MG Tablet Chewable 1 tablet Orally [...] 300 MG Capsule Orally Once a day UnknownFluticasone Propionate 50 MCG/ACT Suspension 1 spray in each nostril Nasally Once a day Calcium 500 MG 1 tablet Orally Once a day Multivitamin ZyrTEC Allergy 10 MG Tablet 1 tablet Orally Once a day Eliquis 2.5 MG Tablet Orally twice a day Medication List reviewed and reconciled with the patientUnknown Fluticasone Propionate 50 MCG/ACT Suspension 1 spray in each nostril Nasally Once a day Unknown Calcium 500 MG 1 tablet Orally Once a day Unknown Multivitamin Unknown ZyrTEC Allergy 10 MG Tablet 1 tablet Orally Once a day Unknown Eliquis 2.5 MG Tablet Orally twice a day Medication List reviewed and reconciled with the patient * Allergies: N .K.D.A.yes[Allergies Verified] Objective: * Vitals: H t: 5ft6in, Wt:165, BMI: 26.63, Shoe size:10, BP:128/65mm Hg, BS:118, Ht-cm: 167.64 cm, Wt-k.84 kg. * P ast Orders: L ab:HEMOGLOBIN A1C (GLYCOHEMOGLOBIN) (Order Date - 05/30/2025) (Collection Date & Time - 07/08/2025 10:53 AM) Value Reference Range HEMOGLOBIN A1C % (HH) 6.8 * Examination: O phthalmology Referral: DIABETES EYE EXAM P rocedure Performed: Helen Salazar ate of Exam Performed 0 01/14/2025 D iabetic Retinopathy Screening: Y es R etinal Screening Performed: Y ever F indings of Diabetic Eye Exam: n o retinopathy N eurological: SENSORY: N eurological exam demonstrates a loss of protective sensation by an absence of tested sensitivity to 5.07 Combs-Lalitha monofilament at 2 or more sites out of 5 total locations, each foot. TINEL'S COMPRESSION: Negative, Medial dorsal cutaneous nerve distribution, Intermediate dorsal cutaneous nerve distribution, Deep peroneal nerve distribution,Left,Positive,Lateral sural nerve distribution,Left. D ermatologic: SKIN FINDINGS: S kin exam reveals normal color, texture, elasticity, and turgor. There are no masses, nor excrescences. The interspaces are clear, B/L. ? O rthopedic: MUSCLE STRENGTH: 5 /5 all groups in a symmetrical fashion, B/L. FOOT MORPHOLOGY: P ainful Calcaneal-Cuboid j oint with mild inflammation, LEFT. TENDONITIS: N o Pain on palpation to, Peroneal Complex, LEFT. FOOTWEAR EVALUATION: g ood condition, exhibit proper fit and accommodation for pedal deformities. V ascular: DP PULSES (B): 2 /4, B/L. PT PULSES (B): 2 /4, B/L. CAPILLARY FILL TIME: 3 secs. per digit, B/L. TROPHIC CONDITION-TEXTURE/ELASTICITY/TURGOR/HAIR GROWTH (B):?normal, B/L. TEMPERTURE GRADIENT (C): d ecreased, cool to cool, proximal to distal, B/L. PIGMENTATION: n ormal, B/L. EDEMA (C): a bsent, B/L. CLAUDICATION (C): d enies, B/L. REST PAIN: d enies, B/L. VARICOSITIES: p resent, moderate, nonpainful, B/L. ? G eneral Examination: GENERAL APPEARANCE: R franciseals a pleasant, alert, well nourished, well-developed, well hydrated individual, who demonstrates proper attention to hygiene/body habitus, and is in no acute distress, Pt serves as own historian for office visit today. ORIENTED: p erson, place, and time. FOOT EXAM: L ower Extremity Neurological Exam performed:?Yes V isual exam of foot performed: Y es D ate 1 Footwear Evaluation F ootwear Evaluation performed: Y es X -Rays - IMAGING REPORT: Views: A re reviewed with the Pt from 06/19/25. Findings: m ild degenerative changes of the inter-metatarsal joints. Fracture: N egative fractures identified. ? Assessment: * Assessment: 1. P ain in left foot - M79.672 2 . T ype 2 diabetes mellitus with diabetic polyneuropathy - E11.42 (Primary) 3 . P ain in left ankle and joints of left foot - M25.572 4 . B ursitis of left foot - M77.52 5 . O steoarthritis of midtarsal joint of left foot - M19.072 S pecify :Dx New problem, Prognosis Uncertain (4) 6 . N euritis - M79.2 S pecify :LEFT Plan: * Treatment: * Procedure Codes: * Preventive Medicine: Counseling: D iscussion: - 04: Office or other outpatient visit for the evaluation and management of a new patient, which required a medically appropriate history [...] written explanation of the examination results, any x- rays taken, the proposed diagnosis, and outline of the treatment plan. A schedule for future care needs was also explained. The patient verbalized an understanding of the instructions at this time and agreed to be an active participant in their treatment. If the patient should think of any questions or concerns after the visit, I have encouraged the patient to call the office. A rthritis: T he patient was counseled on the various etiologies for their Arthritis including genetic, history of injury or trauma, abnormal foot biomechanics leading to excessive joint wear, and use/overuse. We discussed the various treatment options from no treatment, to topical analgesics such as Biofreeze gel, Aspercream, Voltaren gel, Lidoderm patches, CBD oils, THC creams, and Custom-compounded topical cream preparations to natural oral products such as Glucosamine Sulfate/Chondroitin/MSM/Collegen to analgesic Tylenol, to anti-inflammatory medications such as Ibuprofen/Naproxen, and the use of oral steroids if needed. Cardiac, Kidney, and GI issues were discussed RE: potential complications of oral anti-inflammatories. We discussed several other treatment options consisting of accom shoes, supportive innersoles, AFO bracing/support, cortisone injection therapy, and surgical resection of the arthritic joint(s) or fusion reconstruction if necessary. We discussed the advantages and disadvantages of conservative (vs) surgical treamtents including pain relief, improved function/activities of daily life, return to exercise to failure, expense, systemic complications, infection, [id number], prolongued postop course. Patient questions re: the various treatment options available, their successes and potential failures, and alf effects were discussed and the answers were verbally confirmed understood. O rthotics: I explained to the patient the benefits of OT use. I explained that orthoses are medically necessary to decrease the foot pain through proper mechanical control, support of their foot. Recommended an AFO - patient defers due to bulk. Instead will try an elastic ankle brace which she states she has at home. P .R.I.C.E.: T he patient was counseled on the use of P.R.I.C.E. and NSAIDS (if well tolerated) to aid in the recovery from their painful condition, Recommended Topical analgesics including Aspercream/Biofreeze/Voltaren gel as directed. P odiatric Surgery Counseling: S urgical procedures to treat the patients foot problem were discussed. We reviewed the risks of the procedure (described below) vs not having the procedure (persistent pain, deformity, risk for skin ulceration/infection, loss of toe). We discussed the potential procedure complications including, but not limited to: pain, swelling, bleeding, scarring, numbness, infection, delayed/non healing, floppy/unstable/shorthened toe, recurrence, failure of the procedure, overcorrection leading to plantarflexed/downward positioned toe, recurrence, need for further surgery, as well as the possibility for loss of the toe itself. We discussed the use of IV/Local anesthesia, and the usual post-op course for healing. No guarentees were given. The patient verbally indicated a full understanding of the above conversation, and any other of their questions were answered to their satisfaction. S hoe Gear Counseling: T he patient and I reviewed the types of shoes they should be wearing. My recommendation included obtaining a well-fitted shoe with a good supportive, non-foldable nor twistable sole, plenty of toe/room for the forefoot, and proper arch support. Based on todays examination, I recommended the patient look for new shoes, by having their feet professionally measured. We discussed that generally the best time of the day for a shoe fitting is the afternoon. Different shoes types and brands to best match the patients occupation and vocation were discussed. Specific brand selection will be up to the patient, their individual foot condition/deformities, and fit. The patient and I reviewed the standard new shoe break in period by wearing them for a few hours a day while checking for redness or sores as wear time is increased. The patient verbally confirmed to understanding the information discussed. Screening/Special Tests: F all Risk Screening: N o falls in the past year F ALLS: Screening for Future Fall Risk Have you had any falls with injury in the past year? N o * Follow Up: p rn * Images: * Sign off status: Completed true * Provider: Donna Jernigan DPM Date: Generated for Merle meyer/Lisette/Cierraitting on: 02:59 PM EDT History and Physical Notes * HPI (History of Present Illness) Category Sub-Category Detail Notes Category Not es At Risk footcare Pt States Last PCP Visit: Date: 5 Foot Pain Nature: aching, stiffnes s, swelling, throbbing Location: Outside, Midfoot, LE FT Duration: 2 months Onset: unknown, denies trarenetta garcia Course: worse Treatments: rest/alter normal da warren activity, change in shoes, ice, medication ( tylenol, Icy hot ) Examination Category Sub-Category Detail Notes Category Not es Neurological SENSORY: Neurological exa m demonstrates a loss of protective sensation by an absence of tested sensitivity to 5.07 Combs-Lalitha monofilament at 2 or more sites out of 5 total locations, each foot TINEL'S COMPRESSION: Negative, Medial do rsal cutaneous nerve distribution, Intermediate dorsal cutaneous nerve distribution, Deep peroneal nerve distribution, Left,Positive,Lateral sural nerve distribution,Left Dermatologic SKIN FINDINGS: Skin exam reveal s normal color, texture, elasticity, and turgor. There are no masses, nor excrescences. The interspaces are clear, B/L Orthopedic FOOT MORPHOLOGY: Painful Calcane al-Cuboid joint with mild inflammation, LEFT FOOTWEAR EVALUATION: good condition, exh ibit proper fit and accommodation for pedal deformities TENDONITIS: No Pain on palpation to, Peroneal Complex, LEFT MUSCLE STRENGTH: 5/5 all groups in a symmetrical fashion, B/L General Examination GENERAL APPEARANCE: Reveals a pleasant, alert, well nourished, well-developed, well hydrated individual, who demonstrates proper attention to hygiene/body habitus, and is in no acute distress, Pt serves as own historian for office visit today FOOT EXAM: Lower Extremity Neurological Exa m performed:: Yes Visual exam of foot performed:: Yes Date: 07/08/2025 ORIENTED: person, place, and t kelley Footwear Evaluation Footwear Evaluation performe d:: Yes Ophthalmology Referral DIABETES EYE EXAM Procedure Perform ed:: Yes Date of Exam Performed: 01/14/2025 Diabetic Retinopathy Screening:: Yes Retinal Screening Performed:: Yes Findings of Diabetic Eye Exam:: no retin opathy Vascular DP PULSES (B): 2/4, B/L PT PULSES (B): 2/4, B/L CAPILLARY FILL TIME: 3 secs. per digit, B/L TEMPERTURE GRADIENT (C): decreased, cool to cool, proximal to distal, B/L TROPHIC CONDITION-TEXTURE/ELASTICITY/TURGOR/HAIR GROWTH (B): normal, B/L EDEMA (C): absent, B/L VARICOSITIES: present, moderate, n onpainful, B/L CLAUDICATION (C): denies, B/L REST PAIN: denies, B/L PIGMENTATION: normal, B/L X-Rays - IMAGING REPORT Findings: mild deg enerative changes of the inter- metatarsal joints Fracture: Negative fractures i dentified Views: Are reviewed with serena callejas Pt from 06/19/25
[2025-07-08 13:00] VITALS: BP 157/74; PULSE 70; TEMP 36.3; O2SAT 100; BMI 26.9
--- NOTE | 2025-07-08 13:00 | A.OFFPC_ITS ---
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 Accompanied by: Self / Same As Patient Allergies ropinirole Allergy (Severe, Verified 07/08/25 13:30) Vomiting cefuroxime Adverse Reaction (Unknown, Verified 07/08/25 13:30) Diarrhea Medication List - Last Reconciled 07/08/25 by Nuyr Lamb PA-C amoxicillin-pot clavulanate 875-125 mg 1 tab PO BID 10 days aspirin 81 mg PO DAILY blood sugar diagnostic As directed blood sugar diagnostic (FreeStyle Lite Strips) Check glucose 3 times a day with meals calcium carbonate (Calcium 500) 500 mg PO DAILY dulaglutide (Trulicity) 3 mg (0.5 mL) subcut QWEEK 90 days fexofenadine (Mellisa Allergy) 180 mg PO DAILY fluticasone propionate 50 mcg/actuation 2 sprays intranasal BID gabapentin 300 mg PO DAILY glipizide ER 10 mg PO BID lisinopril 20 mg PO BID metformin ER 500 mg PO DAILY multivitamin (Daily Multi-Vitamin tablet) 1 tab PO DAILY omega 8-wav-jxk-fish oil 1,000 (120-180) mg (Fish Oil) 1 cap PO DAILY omeprazole 20 mg PO DAILY simvastatin 10 mg PO DAILY Tobacco use date assessed: 07/08/25 Fall risk assessment: No Falls in past year Last assessed Fall Risk: 07/08/25 Dental Screening Dental Screen Date: 07/08/25 Did you have a dental visit in the last 12 months?: Yes Did you have a dental problem in the last 6 months where you did not have access to dental care?: No Was dental information given to patient?: Patient has dentist HPI Follow up HPI Details The patient is a 75-year-old female presenting with abdominal pain and abnormal bowel habits. She reports infrequent bowel movements followed by large evacuations, with no black or bloody stools or unintentional weight loss. The patient feels a constant sense of fullness in her abdomen. Her last colonoscopy was in 2017, and she was advised that was her last colonoscopy. She denies any urinary symptoms, back pain, chest pain, or shortness of breath. The patient experiences thinner than normal stools, though not pencil-thin, and reports having a good amount of bowel movement when it occurs. She notes tenderness in the lower right quadrant upon palpation although normally diffuse pain all over which is mild normally. The patient is also managing sinusitis, experiencing sinus pressure and ineffective relief from uspr-kpd-amutkeb medications. She has been taking Mellisa for allergies but requires antibiotics for persistent symptoms. The patient has a history of diabetes mellitus, with a recent A1c of 6.6, improved from 6.9 in January. [facility] Medical History (Updated 07/08/25 @ 13:33 by Nury Lamb PA-C) Sinusitis Abnormal bowel habits Abdominal distention Diffuse abdominal pain Degenerative arthritis of foot Annual physical exam Allergic rhinitis Diverticulosis History of mammogram (~06/01/25) Left foot pain Constipation Left hip pain Left buttock pain Sciatica Diabetes mellitus HTN (hypertension) Surgical History History of colonoscopy (~05/09/17) Hx of bladder repair surgery History of surgery H/O vitrectomy H/O: knee surgery History of back surgery History of tubal ligation Family History Mother No problems noted. Father No problems noted. Social History Housing: House Patient Tobacco Use Status: Never used Tobacco e-Cigarette/Vaping Use: Never Used service: No Current occupational status: retired Cognitive needs: No Hearing needs: No Vision needs: Yes (rx glasses) Questionnaire PHQ-9 Over the last 2 weeks, how often have you been bothered by any of the following problems? 1. Little interest or pleasure in doing things: not at all 2. Feeling down, depressed, or hopeless: not at all 3. Trouble falling or staying asleep, or sleeping too much: not at all 4. Feeling tired or having little energy: not at all 5. Poor appetite or overeating: not at all 6. Feeling bad about yourself - or that you are a failure or have let yourself or your family down: not at all 7. Trouble concentrating on things, such as reading the newspaper or watching t elevision: not at all 8. Moving or speaking so slowly that other people could have noticed. Or the opposite - being so fidgety or restless that you have been moving around a lot more than usual: not at all 9. Thoughts that you would be better off or of hurting yourself in some way: not at all Total score: 0 Depression Screening Interpretation: Negative Depression Screening Done: Yes 43889 - PHQ-9 Billing: Yes Source: Developed by Drs. Lasha Park, Laina Richmond, Vamshi Pink and colleagues, with an educational lurdes from [employer]. Thrive Questionnaire Date Thrive assessed: 07/08/25 I am a: Patient Within the past 12 months, did the food you bought not last and you didn't have the money to get more?: Never true Within the past 12 months, did you worry whether your food would run out before you got money to buy more?: Never true Do you have trouble paying for medicines?: No Do you have trouble getting transportation to medical appointments?: No Do you have trouble paying your heating and electricity bill?: No Do you have trouble taking care of your child, family member or friend?: No Do you have trouble with day-to-day activities such as bathing, preparing meals, shopping, managing finances, etc.?: No Are you currently unemployed and looking for a job?: No Are you interested in more education?: No THRIVE Score: 0 AUDIT C Alcohol Use Questionnaire (AUDIT-C) 1. How often do you have a drink containing alcohol?: Never 3. How often do you have six or more drinks on one occasion?: Never Total Score: 0 Score Reviewed/Action Taken: No BONI-7 AMB Questionnaire BONI-7 Date BONI - 7 assessed: 07/08/25 Feeling nervous, anxious, or on edge: 0 = Not at all Not being able to stop or control worryin = Not at all Worrying too much about different things: 0 = Not at all Trouble relaxin = Not at all Being so restless that it is hard to sit still: 0 = Not at all Becoming easily annoyed or irritable: 0 = Not at all Feeling afraid as if something awful might happen: 0 = Not at all Total BONI-7 score (0-4 normal; 5-9 mild; 10-14 moderate; 15-21 severe): 0 Source: Developed by Drs. Lasha Park, Laina Richmond, Vamshi Pink and colleagues, with an educational lurdes from [employer]. BONI-7 Assessment Billing BONI-7 Assessment Tool: BONI-7 Assessment 06820 Review of Systems Const Details: - Gastrointestinal: Reports infrequent bowel movements followed by large evacuations, thinner than normal stools, constant abdominal fullness. Denies black or bloody stools, unintentional weight loss. - Genitourinary: Denies urinary symptoms. - Musculoskeletal: Denies back pain. - Cardiovascular: Denies chest pain. - Respiratory: Denies shortness of breath. - Neurological: Denies headaches. - ENT: Reports sinus pressure, ineffective relief from xvzj-fjo-ifrkyyv medications. All systems reviewed & are unremarkable except as noted in HPI and below Physical exam (Primary Care) Vital Signs: Last Vital Signs Temp 97.3 F 07/08/25 13:00 Pulse 70 07/08/25 13:00 BP 157/74 H 07/08/25 13:00 Pulse Ox 100 07/08/25 13:00 Oxygen Delivery Method Room Air 07/08/25 13:00 BMI result Body Mass Index 26.9 Tobacco/Smoking Status: Tobacco use Status Tobacco use date assessed 07/08/25 07/08/25 13:03 Patient Tobacco Use Status Never used Tobacco 07/08/25 13:03 e-Cigarette/Vaping Use Never Used 07/08/25 13:03 PHQ-9: PHQ-9 Score PHQ-9: Total score 0 07/08/25 13:03 Depression Screening Interpretation: Negative Thrive Assessment: Date of Thrive Assessment Date Thrive assessed 07/08/25 07/08/25 13:03 Const Other: Appearance: Alert. Oriented X3. No acute distress. Head: Normal external exam. Normocephalic. Atraumatic. Eyes: Pupils are equal, round, and reactive to light. Extraocular movements intact. Conjunctiva and sclera normal. Eyelids normal. Throat: Pharynx normal. Uvula midline. Moist mucous membranes. Neck: Normal inspection. Neck supple. Full range of motion. Cardiovascular: Normal heart rate and rhythm. Respiratory: No respiratory distress. Painless inspiration. Abdomen: Soft and nontender except for mild tenderness in the lower right side on exam although patient reports diffuse tenderness normally. Bowel sounds normal in all 4 quadrants. No distention noted. No organomegaly noted. No visible injury noted. Back: Full range of motion noted. Skin: Skin warm and dry. Normal skin color. Normal skin turgor. No rashes/lesions/lacerations noted. Extremities: Extremities exhibit normal range of motion. Neuro: Oriented X 3. No motor deficit. No sensory deficit. Reflexes normal. Office Procedures Flu Questionnaire Does the patient have a severe egg allergy?: No Does the patient have severe life threatening allergies?: No Does the patient have a fever or illness today?: No Has the patient ever had Guillain-[place] Syndrome?: No Has the patient ever had any past reaction to a flu shot?: No Immunizations Fluarix [id number] (PF) 45 mcg (15 mcg x 3)/0.5 mL IM syringe Performing Provider: Nury Lamb PA-C [facility] Documented (not given) by: Jacqueline Pappas CMA on 07/08/25 13:12 Reason Not Given: Received Previously Coding Level of Care Code Est Pt Level 4 (80433) Complex EM visit Add On G2211 Diagnoses Diffuse abdominal pain R10.84 Abnormal bowel habits R19.8 Sinusitis J32.9 Diabetes mellitus E11.9 Additional Codes BONI-7 Assessment Billing - BONI-7 Assessment Tool: BONI-7 Assessment 12779 ([id number]) PHQ-9 - 55360 - PHQ-9 Billing: Yes ([id number]) Assessment & Plan Assessment & Plan (1) Diffuse abdominal pain: Code(s): R10.84 - Generalized abdominal pain Category: Medical Plan: A CT scan of the abdomen and pelvis with IV contrast is ordered to evaluate abdominal pain and abnormal bowel habits. Blood work will be conducted prior to the scan to ensure kidney function is adequate for the use of contrast. (2) Abnormal bowel habits: Code(s): R19.8 - Other specified symptoms and signs involving the digestive system and abdomen Category: Medical Plan: The patient is advised to take Colace and MiraLAX twice daily for a week to regulate bowel movements. (3) Sinusitis: Code(s): J32.9 - Chronic sinusitis, unspecified Category: Medical Plan: The patient will be prescribed Augmentin for sinusitis, with a recommendation to take probiotics to mitigate potential gastrointestinal side effects. (4) Diabetes mellitus: Code(s): E11.9 - Type 2 diabetes mellitus without complications Category: Medical Plan: The patient's diabetes is managed with monitoring of A1c levels, which have improved from 6.9 to 6.6. Plan Plan Patient was informed and verbally consented to the use of an ambient scribe for clinic note documentation during this visit. 1. Abdominal Pain A CT scan of the abdomen and pelvis with IV contrast is ordered to evaluate abdominal pain and abnormal bowel habits. Blood work will be conducted prior to the scan to ensure kidney function is adequate for the use of contrast. 2. Abnormal Bowel Habits The patient is advised to take Colace and MiraLAX twice daily for a week to regulate bowel movements. 3. Sinusitis The patient will be prescribed Augmentin for sinusitis, with a recommendation to take probiotics to mitigate potential gastrointestinal side effects. 4. Diabetes Mellitus The patient's diabetes is managed with monitoring of A1c levels, which have improved from 6.9 to 6.6. I discussed with the patient the plan to order a CT scan of the abdomen and pelvis with IV contrast to investigate her abdominal pain and abnormal bowel habits. We reviewed the need for blood work prior to the scan to ensure kidney function is adequate for the use of contrast. I recommended the use of Colace and MiraLAX to help regulate her bowel movements and prescribed Augmentin for her sinusitis, advising her to take probiotics to prevent gastrointestinal side effects. Orders: Orders Comprehensive Met. Panel Today Nury Lamb PA-C Z00.00 - Encounter for general adult medical examination without abnormal findings Magnesium Today Nury Lamb PA-C Z00.00 - Encounter for general adult medical examination without abnormal findings CT abdomen pelvis w IV con Today Nury Lamb PA-C R10.84 - Generalized abdominal pain, R14.0 - Abdominal distension (gaseous), R19.8 - Other specified symptoms and signs involving the digestive system and abdomen Influenza [id number] Immunization Today Nury Lamb PA-C Z23 - Encounter for immunization Complete Blood Count no Diff Today Nury Lamb PA-C Z00.00 - Encounter for general adult medical examination without abnormal findings Medications: New amoxicillin-pot clavulanate 875-125 mg 1 tab PO BID 20 tabs 0RF 10 days Nury Lamb PA-C Changed From glipizide ER take 2 tabs in the morning, and 2 tabs in the afternoon 5 mg PO BID 360 tabs 1RF To glipizide ER take 2 tabs in the morning, and 2 tabs in the afternoon 10 mg PO BID DONA Rojas From fluticasone propionate 50 mcg/actuation intranasal To fluticasone propionate 50 mcg/actuation 2 sprays intranasal BID 16 grams 3RF Nury Lamb PA-C Patient Instructions: - Take Colace and MiraLAX twice daily for one week to help regulate bowel movements. - Schedule and complete the CT scan of the abdomen and pelvis as instructed. - Complete blood work prior to the CT scan to ensure kidney function is adequate. - Take Augmentin as prescribed for sinusitis and consider taking probiotics to prevent gastrointestinal side effects. - Contact the office if symptoms worsen or if there are any concerns.
--- OUTSIDE RECORDS SUMMARY | 2025-07-08 14:59 | XMS_ITS | Patient Health Record ---
Author Organization [facility] [address] [place] Address [address] [place] [address] Care Team Providers Care Gang Sawyer Name Role Phone Festus, Kartik Primary Care Provider Deshawn Rdz Unavailable [phone] Zachariah Winkler Unavailable [phone] Allergies No Known Allergies Results Component Value Reference Range Notes HEMOGLOBIN A1C (GLYCOHEMOGLO BIN) Reviewed date:07/08/2025 10:53:33 AM Interpretation: Performing Lab: Notes/Report: HEMOGLOBIN A1C % (HH) 6.8 Reason For Referral No Information Medications Medication SIG (Take, Route, Frequency, Duration) Notes Start Date End Date Status Doxycycline Monohydrate 100 MG 1 capsule Orally Once a day; Duration: 10 days Active Gabapentin 300 MG Orally Once a day Active glipiZIDE ER 2.5 MG Orally Active metFORMIN HCl 500 MG 1tablet daily Orall y Once a day Active Simvastatin 10 MG 1 tab daily Orally O nce a day Active Ibuprofen 600 MG 1 tablet with food o r milk Orally Three times a day; Duration: 30 day(s) 2017 Unknown Extra Depth Diabetic Shoes with 3 Pair Custom heat-molded multi-density innersoles for 1 year Dx: 02/19/2017 Unknown Multivitamin Unknown Calcium 500 MG 1 tablet Orally Once a day Unknown Fluticasone Propionate 50 MCG/ACT 1 spray in each nostril Nasally Once a day Unknown Lisinopril 20 MG 1 tablet Orally twic e daily Active Trulicity 3 MG/0.5ML as directed Subcutaneous Active Omeprazole 20 MG 1 capsule 30 minutes before morning meal Orally Once a day Active Eliquis 2.5 MG Orally twice a day Unknown Aspirin 81 MG 1 tablet Orally Once a day Active ZyrTEC Allergy 10 MG 1 tablet Orally Onc e a day Unknown Immunizations Vaccine Route Administration Date Status Comme nts Influenza Unknown 07/16/2016 Administered Influenza Unknown 08/15/2017 Administered Influenza Unknown 07/16/2023 Administered Influenza Unknown 06/16/2025 Administered Social History Tobacco Use: Social History [...] Polyneuropathy due to type 2 diabetes mellitus (905043830) Type 2 diabetes mellitus with diabetic polyneuropathy (E11.42) Active confirmed Problem Osteoarthritis of midtarsal joint of left foot ([id number] ) Osteoarthritis of midtarsal joint of left foot (M19.072) Active confirmed Vital Signs Blood pressure diastolic 65 mm Hg 07/08/2025 Height 5ft6in in 07/08/2025 Blood pressure systolic 128 mm Hg 07/08/2025 Weight 165 lbs 07/08/2025 BMI 26.63 kg/m2 07/08/2025 Encounters Encounter Location Date Provider Diagnosis [facility] [address] [address] 07/08/2025 Deshawn Jernigan Type 2 diabetes mellitus with diabetic polyneuropathy E11.42 ; Pain in left foot M79.672 ; Pain in left ankle and joints of left foot M25.572 ; Bursitis of left foot M77.52 ; Osteoarthritis of midtarsal joint of left foot M19.072 and Neuritis M79.2 Assessments Encounter Date Diagnosis (ICD Code) Assessment Notes Treatment Notes Treatment Clinical Notes Section Notes 07/08/2025 Pain in left foot (ICD-10 - M79.672) 07/08/2025 Type 2 diabetes mellitus with diabetic polyneuropathy (ICD-10 - E11.42) 07/08/2025 Pain in left ankle and joints of left foot (ICD-10 - M25.572) 07/08/2025 Bursitis of left foot (ICD-10 - M77.52) 07/08/2025 Osteoarthritis of midtarsal joint of left foot (ICD-10 - M19.072) 07/08/2025 Neuritis (ICD-10 - M79.2) Plan Of Treatment Pending Test Test Name Order Date X ray : Foot, right 2V 05/26/2017 X ray : Foot, right 2V 06/09/2017 X ray : Foot, right 2V 07/10/2017 X ray : Foot, right 3V 02/19/2017 [id number] I&D ABSCESS- SIMPLE,SINGLE 024 [id number], Toes 07/10/2017 Insurance Providers Payer Name Payer Address Payer Phone Subscriber Number Group Number Insured Name Patient Relationship to Insured Coverage Start Date Coverage End Date [employer] [address] [place] [address] [phone] [id number] Tiffany Guadararma Self - patient is the insured Medical (General) History Medical History History ICD Code Back,Hip,and Knee pain Cholesterol Cataracts type II diabetes High blood pressure Neuropathy Measles Mumps Chicken pox Joint implants/screws Arthritis Numbness Surgical History Surgery Date(Month/Year) back surgery 1989 rotator cuff, right 2002 right knee arthroscopy 2007 retinectomy, left eye [id number] HT R2nd toe 05/22/2017 shoulder replacement 2022 bladder surgery 2020
--- OUTSIDE RECORDS SUMMARY | 2025-07-08 14:59 | XMS_ITS | Patient Health Record ---
Author Organization [facility] Address [address] [place] [address] Care Team Providers Care Recovery Collector Name Role Phone RYLAND BELLO PA-C Primary Care Provider Lasha Pate Unavailable [phone] Reason For Referral No Information Medications Medication [...] Problem Status W/U Status Risk Notes Problem Screening for malignant neoplasm of colon (590046926) Encounter for screening for malignant neoplasm of colon (Z12.11) Active confirmed Problem Preprocedural examination (022571142201093) Preprocedural examination (Z01.818) Active confirmed Plan Of Treatment Future Test Test Name Order Date COLONOSCOPY 02/07/2017 Insurance Providers Payer Name Payer Address Payer Phone Subscriber Number Group Number Insured Name Patient Relationship to Insured Coverage Start Date Coverage End Date [facility] [address] [facility] [place] [address] [phone] [id number] BEATRICE LORD Self - patient is the insured Medical (General) History Medical History History ICD Code NIDDN Hypertension Denies ND,,CVA,Lung disease,renal diseas e Seasonal allergies Screening colonoscopy in 2006--hyperplastic polyp, sigmoid diverticulosis, internal hemorrhoids Surgical History Surgery Date(Month/Year) TUBAL LIGATION 1979 BACK SURGERY L5 1989 RIGHT ROTATOR CUFF 2003 RIGHT KNEE ARTHROSCOPIC 2007 VITRECTOMY LEFT EYE X2 2009 RETINECTOMY LEFT EYE X2 2011
== END 2025-07-08 13:25 | disposition home or self-care (01) ==
LOC: HO.HMCSH 12:59
PROVIDERS: PCP Physician Assistant Medical; Visit Provider Physician Assistant Medical
DX: R10.84 Generalized abdominal pain (principal); R19.8 Other specified symptoms and signs involving the digestive system and abdomen; J32.9 Chronic sinusitis, unspecified; E11.9 Type 2 diabetes mellitus without complications; Z23 Encounter for immunization

== ENCOUNTER → 2025-07-08 12:59 | Outpatient (BNVA) | payer MEDICARE, SELFPAY | PROVIDERS: PCP Physician Assistant Medical; Visit Provider Physician Assistant Medical | DX: R10.84 Generalized abdominal pain (principal); R19.8 Other specified symptoms and signs involving the digestive system and abdomen; E11.9 Type 2 diabetes mellitus without complications; J32.9 Chronic sinusitis, unspecified; Z28.89 Immunization not carried out for other reason | CPT/HCPCS: 90471; 96127; 99212 ==

== ENCOUNTER 2025-09-07 08:11 | Outpatient (REF) | payer MEDICARE, SELFPAY ==
--- OUTSIDE RECORDS SUMMARY | 2025-07-08 05:45 | XMS_ITS ---
Author Organization [facility] Address [address] [place] [address] Care Team Providers Care Patient Support Associate Name Role Phone Yovani Mortensen Primary Care Provider Deshawn Rdz Unavailable [phone] Zachariah Winkler [phone] REASON FOR VISIT ins not accepted Encounters Encounter Location Date Provider Diagnosis [facility] [address] [place] [address] 07/08/2025 Zachariah Winkler Plan Of Treatment No Information Progress Notes * Tiffany LORDDOB: 8 (75 yo F)Acc No.[id number]:07/08/2025 Progress Note Patient: Tiffany MATTSON Provider: Rusty Winkler DPM :1950 A ge:75 Y S ex:Female Date:07/08/2025 Address:[address] [place], [place] Pcp:Yovani Mortensen Subjective: * Chief Complaints: * 1 . Ins not accepted. * Medical History: Objective: * Vitals: Assessment: Plan: * Treatment: * Images: * The named appointment provid er may or may not be the originator of this progress note, and it is not deemed complete until electronically signed by the appointment provider. Sign off status: Pending * Provider: Rusty Winkler DPM Date: Generated for Merle meyer/Lisette/Prakash on: 1 11/08/2024 08:15 AM EST
--- NOTE | ~2025-09-07 | CT_ITS ---
EXAMINATION: CT ABDOMEN PELVIS WITH IV CONTRAST HISTORY: R10.84 - Generalized abdominal pain COMPARISON: There are no prior studies for available comparison. TECHNIQUE: CT scan of the abdomen and pelvis was performed following administration of 85 mL Omnipaque 350 using standard departmental protocol. Coronal and sagittal reformatted images were generated and reviewed. The patient received oral contrast material. This CT exam was performed with one or more of the following dose reduction techniques: automated exposure control, adjustment of the mA and/or kV according to patient size, use of iterative reconstruction technique. DLP: 674 mGy-cm FINDINGS: LOWER CHEST: The visualized lung bases are clear. There is no pleural effusion. CARDIOVASCULATURE: The heart is normal in size. There is no pericardial effusion. LIVER: The liver is normal in size and contour. There is a subcentimeter cyst in the left lobe of the liver. The hepatic and portal veins are patent. GALLBLADDER / BILE DUCTS: The gallbladder is markedly distended. No calcified stones are identified. There is no intra or extrahepatic biliary ductal dilatation. SPLEEN: The spleen is normal in size. No focal splenic lesion is identified. PANCREAS: The pancreas is unremarkable in appearance. ADRENAL GLANDS: Within normal limits. KIDNEYS/RETROPERITONEUM: The right kidney is diminutive in size and demonstrates marked scarring. No renal calculi are identified. There is no hydronephrosis. There is a 7.1 cm cyst at the upper pole of the left kidney and a 3.5 cm cyst at the lower pole. LYMPH NODES: No abdominal or pelvic lymphadenopathy. VASCULATURE: The abdominal aorta is normal in caliber. MESENTERY/PERITONEUM: No free fluid. No masses. There is no free intraperitoneal gas. STOMACH: The stomach is unremarkable. SMALL BOWEL: The small bowel is normal in caliber. COLON: There is a large amount of stool throughout the colon. APPENDIX: Normal. URINARY BLADDER/PELVIC ORGANS: The urinary bladder is collapsed, limiting evaluation. The uterus is unremarkable. BONES / SOFT TISSUES: There is marked degenerative disc disease of the spine. CT/CT abdomen pelvis w IV con IMPRESSION: 1. Markedly distended gallbladder. No calcified stones are identified. If there is clinical concern for acute cholecystitis, ultrasound or HIDA scan could be performed. 2. Markedly scarred and atrophic right kidney. 3. Large amount of stool throughout the colon. Electronically signed by: Lasha Taveras MD 09/07/2025 11:24 AM SUDARSHAN VARGAS
--- OUTSIDE RECORDS SUMMARY | 2025-09-07 08:15 | XMS_ITS | Patient Health Record ---
Author Organization [facility] Address [address] [place] [address] Care Team Providers Care [employer] Asc[employer] Consultant Name Role Phone RYLAND BELLO PA-C Primary Care Provider Lasha Pate Unavailable [phone] Reason For Referral No Information Medications Medication SIG (Take, Route, Frequency, Duration) Notes Start Date End Date Status glipiZIDE ER 2.5 MG Tablet Extended Release 24 Hour 1 tablet Orally Once a day Active metFORMIN HCl 500 MG Tablet 1 tablet wit h meals Orally Once a day Active Fluticasone Propionate 50 MCG/ACT Suspension 1 spray in each nostril Nasally Once a day Active Calcium 500 MG Tablet 1 tablet with meal s Orally Twice a day Active Multivitamin Adult - Tablet 1 tablet Ora lly once a day Active ZyrTEC Allergy 10 MG Tablet 1 tablet Ora lly Once a day Active Simvastatin 10 MG Tablet 1 tablet in the evening Orally Once a day Active Lisinopril 20 MG Tablet 1 tablet Orally twice a day Active Immunizations Vaccine Route Administration Date Status Comme nts Influenza Unknown 07/16/2016 Administered Social History Tobacco Use: Social History Observation Description Date Details (start date - stop date) Never Smoker NA - NA Social History Drugs/Alcohol: Social Info Question Answer Notes Alcohol Screen Did you have a drink containing alcohol in the past year? No Points 0 Interpretation Negative Tobacco Use: Social Info Question Answer Notes Tobacco Use/Smoking Patient is a nonsmoker Additional Details Category Social Info Options Details Miscellaneous: Marital status: Occupation: retired Section Notes: Nonsmoker; No sig alcohol Problems Problem Type SNOMED Code ICD Code Onset Dates Problem Status W/U Status Risk Notes Problem Screening for malignant neoplasm of colon (853662944) Encounter for screening for malignant neoplasm of colon (Z12.11) Active confirmed Problem Preprocedural examination ([id number]) Preprocedural examination (Z01.818) Active confirmed Plan Of Treatment Future Test Test Name Order Date COLONOSCOPY 02/07/2017 Insurance Providers Payer Name Payer Address Payer Phone Subscriber Number Group Number Insured Name Patient Relationship to Insured Coverage Start Date Coverage End Date [facility] [address] [place] [address] [phone] [id number] BEATRICE LORD Self - patient is the insured Medical (General) History Medical History History ICD Code NIDDN Hypertension Denies [place],,CVA,Lung disease,renal diseas e Seasonal allergies Screening colonoscopy in 2006--hyperplastic polyp, sigmoid diverticulosis, internal hemorrhoids Surgical History Surgery Date(Month/Year) TUBAL LIGATION 1979 BACK SURGERY L5 1989 RIGHT ROTATOR CUFF 2003 RIGHT KNEE ARTHROSCOPIC 2007 VITRECTOMY LEFT EYE X2 2009 RETINECTOMY LEFT EYE X2 2010
--- OUTSIDE RECORDS SUMMARY | 2025-09-07 08:15 | XMS_ITS | Patient Health Record ---
Author Organization [facility] [address] [address] [place] Address [address] [facility] [place] [address] Care Team Providers Care Crew Foreman Name Role Phone Festus, Kartik Primary Care Provider Deshawn Rdz Unavailable [phone] Zachariah Winkler Unavailable [phone] Allergies No Known Allergies Results Component Value [...] Polyneuropathy due to type 2 diabetes mellitus (254582126) Type 2 diabetes mellitus with diabetic polyneuropathy (E11.42) Active confirmed Problem Osteoarthritis of midtarsal joint of left foot (9515956103906487 ) Osteoarthritis of midtarsal joint of left foot (M19.072) Active confirmed Vital Signs Blood pressure diastolic 65 mm Hg 07/08/2025 Height 5ft6in in 07/08/2025 Blood pressure systolic 128 mm Hg 07/08/2025 Weight 165 lbs 07/08/2025 BMI 26.63 kg/m2 07/08/2025 Encounters Encounter Location Date Provider Diagnosis [facility] [address] [address] 07/08/2025 Deshawn Jernigan Type 2 diabetes mellitus [...] X ray : Foot, right 3V 02/19/2017 [id number] I&D ABSCESS- SIMPLE,SINGLE 024 [id number], Toes 07/10/2017 Insurance Providers Payer Name Payer Address Payer Phone Subscriber Number Group Number Insured Name Patient Relationship to Insured Coverage Start Date Coverage End Date [employer] [place] Medicare Advantage [address] [place] [address] [id number] Tiffany Guadarrama Self - patient is the insured Medical (General) History Medical History History ICD Code Back,Hip,and Knee pain Cholesterol Cataracts type II diabetes High blood pressure Neuropathy Measles Mumps Chicken pox Joint implants/screws Arthritis Numbness Surgical History Surgery Date(Month/Year) back surgery 1989 rotator cuff, right 2002 right knee arthroscopy 2007 retinectomy, left eye [id number] HT R2nd toe 05/22/2017 shoulder replacement 2022 bladder surgery 2020
[2025-09-07 09:01] LABS: Hematocrit 42.4 % (37.0-47.0); Hemoglobin 13.7 g/dl (12.0-16.0); Mean Corpuscular HGB Conc 32.3 g/dl (31.0-35.0); Mean Corpuscular Hemoglobin 29.7 pg (27.0-33.0); Mean Corpuscular Volume 92.0 fL (80.0-98.0); NRBC Abs Auto 0.000 X10*3/uL (0.0-0.012); NRBC Pct Auto 0.0 /100WBC (0.0-0.2); Platelet Count 214 X10*3/uL (160-400); Red Blood Count 4.61 X10*6/uL (4.20-5.50); White Blood Count 7.5 X10*3/uL (4.8-10.8)
[2025-09-07 09:26] LABS: Alanine Aminotransferase 16 U/L (0-31); Albumin Level 4.1 g/dL (3.5-5.0); Alkaline Phosphatase 76 U/L (39-117); Anion Gap 12 (12-20); Aspartate Amino Transferase 23 U/L (5-31); Blood Urea Nitrogen 17 mg/dL (9-16); Calcium 9.2 mg/dL (8.4-10.2); Carbon Dioxide 26 mmol/L (22-29); Chloride 105 mmol/L (96-108); Estimated Glomerular Filt Rate 57; Magnesium 1.8 mg/dL (1.6-2.6); Potassium 4.4 mmol/L (3.3-5.1); Sodium 139 mmol/L (135-145); Total Protein 6.8 g/dL (6.5-8.0)
[2025-09-07] MEDS: iohexoL 350 MG/ML 100 ML INFUS..BTL IV (11:08)
[2025-09-07] MEDS: Barium Sulfate Oral (Mocha) 450 ML ORAL.SUSP 900 ML PO (11:09)
== END 2025-09-07 08:12 | disposition home or self-care (01) ==
LOC: HO.CT 08:11
PROVIDERS: PCP Physician Assistant Medical; Visit Provider Physician Assistant Medical
DX: Z00.00 Encounter for general adult medical examination without abnormal findings (principal); R10.84 Generalized abdominal pain; R14.0 Abdominal distension (gaseous); R19.8 Other specified symptoms and signs involving the digestive system and abdomen
CPT/HCPCS: 36415; 74177; 80053; 83735; 85027; Q9967

== ENCOUNTER → 2025-09-07 08:24 | Outpatient (BNV) | payer MEDICARE, SELFPAY | PROVIDERS: PCP Physician Assistant Medical; Visit Provider Radiology Diagnostic Radiology | DX: K82.8 Other specified diseases of gallbladder (principal); N26.1 Atrophy of kidney (terminal); R10.84 Generalized abdominal pain | CPT/HCPCS: 74177 ==

== ENCOUNTER 2025-09-13 08:05 | Outpatient (AMB) | payer MEDICARE, SELFPAY ==
--- OUTSIDE RECORDS SUMMARY | 2025-07-08 05:45 | XMS_ITS ---
Author Organization [facility] Address [address] [place] [address] Care Team Providers Care Oil Burner Servicer And Installer Name Role Phone Yovani Mortensen Primary Care Provider Deshawn Rdz Unavailable [phone] Zachariah Winkler [phone] REASON FOR VISIT ins not accepted Encounters Encounter Location Date Provider Diagnosis [facility] [address] [place] [address] 07/08/2025 Zachariah Winkler Plan Of Treatment No Information Progress Notes * Tiffany LORDDOB: 8 (75 yo F)Acc No.[id number]:07/08/2025 Progress Note Patient: Tiffany MATTSON Provider: Rusty Winkler DPM :1950 A ge:75 Y S ex:Female Date:07/08/2025 Address:[address] [place], [place] Pcp:Yovani Mortensen Subjective: * Chief Complaints: * [...] Date: Generated for Merle meyer/Lisette/Prakash on: 1 09:30 AM EST
--- NOTE | 2025-09-13 08:01 | MHC.PC.OV ---
Intake Visit Reasons: cough/fever Allergies ropinirole Allergy (Severe, Verified 09/13/25 08:19) Vomiting cefuroxime Adverse Reaction (Unknown, Verified 09/13/25 08:19) Diarrhea Medication List - Last Reconciled 09/13/25 by Yovani Mortensen MD aspirin 81 mg PO DAILY blood sugar diagnostic As directed blood sugar diagnostic (FreeStyle Lite Strips) Check glucose 3 times a day with meals calcium carbonate (Calcium 500) 500 mg PO DAILY dulaglutide (Trulicity) 3 mg (0.5 mL) subcut QWEEK fexofenadine (Mellisa Allergy) 180 mg PO DAILY fluticasone propionate 50 mcg/actuation 2 sprays intranasal BID gabapentin 300 mg PO DAILY glipizide ER 10 mg (2 x 5 mg) PO BID 90 days lisinopril 20 mg PO BID 90 days metformin ER 500 mg PO DAILY multivitamin (Daily Multi-Vitamin tablet) 1 tab PO DAILY omega 7-jxk-rwi-fish oil 1,000 (120-180) mg (Fish Oil) 1 cap PO DAILY omeprazole 20 mg PO DAILY simvastatin 10 mg PO DAILY Tobacco use date assessed: 07/08/25 Dental Screening Dental Screen Date: 09/13/25 Did you have a dental visit in the last 12 months?: Yes Did you have a dental problem in the last 6 months where you did not have access to dental care?: No Was dental information given to patient?: Patient has dentist HPI HPI Comments History of Present Illness Details History of Present Illness - The patient is a 75-year-old female presenting for a televisit with complaints of a cough, low-grade fever, and sore throat that started last Friday. - She reports a fever of 100.7 F. - She has tried ncld-fgh-nvsrtbs cough medicine without relief. - Associated symptoms include disturbed sleep due to the cough, a lack of appetite, and slightly elevated blood sugar levels. - She denies any recent travel. - She reports having family over for [employer] but denies any sick contacts. Social History - Travel: The patient denies any recent travel. - Social Exposures: She had family visit for [employer] and reports no one was sick. - Nutritional Status: The patient reports she has no appetite but has been maintaining fluid intake. Results COUNT INCLUDES THE [facility] Medical History Sinusitis Abnormal bowel habits Abdominal distention Diffuse abdominal pain Degenerative arthritis of foot Annual physical exam Allergic rhinitis Diverticulosis History of mammogram (~06/01/25) Left foot pain Constipation Left hip pain Left buttock pain Sciatica Diabetes mellitus HTN (hypertension) Surgical History History of colonoscopy (~05/09/17) Hx of bladder repair surgery History of surgery H/O vitrectomy H/O: knee surgery History of back surgery History of tubal ligation Family History Mother No problems noted. Father No problems noted. Social History Housing: House Patient Tobacco Use Status: Never used Tobacco e-Cigarette/Vaping Use: Never Used service: No Current occupational status: retired Cognitive needs: No Hearing needs: No Vision needs: Yes (rx glasses) Questionnaire PHQ-9 Over the last 2 weeks, how often have you been bothered by any of the following problems? 1. Little interest or pleasure in doing things: not at all 2. Feeling down, depressed, or hopeless: not at all 3. Trouble falling or staying asleep, or sleeping too much: not at all 4. Feeling tired or having little energy: not at all 5. Poor appetite or overeating: not at all 6. Feeling bad about yourself - or that you are a failure or have let yourself or your family down: not at all 7. Trouble concentrating on things, such as reading the newspaper or watching television: not at all 8. Moving or speaking so slowly that other people could have noticed. Or the opposite - being so fidgety or restless that you have been moving around a lot more than usual: not at all 9. Thoughts that you would be better off or of hurting yourself in some way: not at all Total score: 0 Depression Screening Interpretation: Negative Depression Screening Done: Yes 89912 - PHQ-9 Billing: Yes Source: Developed by Drs. Lasha Park, Laina Richmond, Vamshi Pink and colleagues, with an educational lurdes from [employer]. Thrive Questionnaire Date Thrive assessed: 07/08/25 I am a: Patient Within the past 12 months, did the food you bought not last and you didn't have the money to get more?: Never true Within the past 12 months, did you worry whether your food would run out before you got money to buy more?: Never true Do you have trouble paying for medicines?: No Do you have trouble getting transportation to medical appointments?: No Do you have trouble paying your heating and electricity bill?: No Do you have trouble taking care of your child, family member or friend?: No Do you have trouble with day-to-day activities such as bathing, preparing meals, shopping, managing finances, etc.?: No Are you currently unemployed and looking for a job?: No Are you interested in more education?: No THRIVE Score: 0 AUDIT C Alcohol Use Questionnaire (AUDIT-C) 1. How often do you have a drink containing alcohol?: Never 3. How often do you have six or more drinks on one occasion?: Never Total Score: 0 Score Reviewed/Action Taken: No BONI-7 AMB Questionnaire BONI-7 Date BONI - 7 assessed: 07/08/25 Feeling nervous, anxious, or on edge: 0 = Not at all Not being able to stop or control worryin = Not at all Worrying too much about different things: 0 = Not at all Trouble relaxin = Not at all Being so restless that it is hard to sit still: 0 = Not at all Becoming easily annoyed or irritable: 0 = Not at all Feeling afraid as if something awful might happen: 0 = Not at all Total BONI-7 score (0-4 normal; 5-9 mild; 10-14 moderate; 15-21 severe): 0 Source: Developed by Drs. Lasha Park, Vamshi Frerera and colleagues, with an educational lurdes from [employer]. BONI-7 Assessment Billing BONI-7 Assessment Tool: BONI-7 Assessment 50768 Review of Systems Narrative Review of Systems - Constitutional: Reports a low-grade fever up to 100.7 F and loss of appetite. - ENT: Reports a sore throat. - Respiratory: Reports a cough. - Neurological: Reports sleep is disturbed by her cough. - Endocrine: Reports her blood sugars have been running a little high. Physical exam (Primary Care) Tobacco/Smoking Status: Tobacco use Status Tobacco use date assessed 07/08/25 09/13/25 08:07 Patient Tobacco Use Status Never used Tobacco 09/13/25 08:07 e-Cigarette/Vaping Use Never Used 09/13/25 08:07 PHQ-9: PHQ-9 Score PHQ-9: Total score 0 09/13/25 08:07 Depression Screening Interpretation: Negative Thrive Assessment: Date of Thrive Assessment Date Thrive assessed 07/08/25 09/13/25 08:07 Narrative Physical Exam General: Cooperative and healthy appearing Nutritional Appearance: Well nourished Orientation/consciousness: Patient oriented x3 Limitations: No limitations Head: Normal to inspection General: Appearance normal, both eyes and all related structures Neck: Normal visual inspection Chest: Normal palpation of entire chest wall Respiratory: Normal respiratory effort Neurology: Patient oriented x3 Telehealth Telehealth Telehealth Platform: Telephone Location of provider rendering services: practice address Location of patient: address on file Patient Identification confirmed using: Name, : Yes Telehealth method: voice only Patient verbally consented to treatment: Yes Patient verbally consented to billing insurance company: Yes Patient informed of any privacy concerns related to visit: Yes Minutes spent on Phone/Video with Pt.: 15 Coding Level of Care Code Est Pt Level 3 (99122) Add On Problem Visit Only Diagnoses Upper respiratory infection J06.9 Additional Codes BONI-7 Assessment Billing - BONI-7 Assessment Tool: BONI-7 Assessment 41300 ([id number]) PHQ-9 - 07801 - PHQ-9 Billing: Yes ([id number]) Assessment & Plan Assessment & Plan (1) Upper respiratory infection: Code(s): J06.9 - Acute upper respiratory infection, unspecified Plan Plan - Suspect a flu-like illness. - Advised Tylenol every six hours around the clock for symptomatic relief. - Recommended increasing fluid intake, keeping 8 ounces of liquid nearby at all times. - Suggested consuming hot soups for nutrition. Discussion Notes I conducted a televisit with the patient to discuss her symptoms of cough, low-grade fever, and sore throat. I educated her that her symptoms are consistent with a flu-like illness. The plan for management includes symptomatic care with Tylenol every six hours, ensuring adequate hydration by keeping fluids readily available, and maintaining nutrition with hot soups despite her lack of appetite. We acknowledged her report of slightly elevated blood sugars. Patient Instructions - Take Tylenol every 6 hours as needed for fever and pain. - Drink plenty of fluids. Keep a glass of water or another liquid next to you to sip on throughout the day. - Even if you do not have an appetite, try to eat. Hot soups are a good option for nutrition. - Continue to monitor your blood sugar levels as they have been running a little high.
--- OUTSIDE RECORDS SUMMARY | 2025-09-13 09:30 | XMS_ITS | Patient Health Record ---
Author Organization [facility] [address] [place] Address [address] [facility] [place] [address] Care Team Providers Care Formulator Name Role Phone Festus, Kartik Primary Care Provider Deshawn Rdz Unavailable [phone] Zachariah Winkler Unavailable [phone] Allergies No Known Allergies Results Component Value [...] Polyneuropathy due to type 2 diabetes mellitus (740419298) Type 2 diabetes mellitus with diabetic polyneuropathy (E11.42) Active confirmed Problem Osteoarthritis of midtarsal joint of left foot (9134728830182061 ) Osteoarthritis of midtarsal joint of left foot (M19.072) Active confirmed Vital Signs Blood pressure diastolic 65 mm Hg 07/08/2025 Height 5ft6in in 07/08/2025 Blood pressure systolic 128 mm Hg 07/08/2025 Weight 165 lbs 07/08/2025 BMI 26.63 kg/m2 07/08/2025 Encounters Encounter Location Date Provider Diagnosis [facility] [address] [address] 07/08/2025 Deshawn Jernigan Type 2 diabetes mellitus [...] X ray : Foot, right 3V 02/19/2017 [id number] I&D ABSCESS- SIMPLE,SINGLE 024 [id number], Toes 07/10/2017 Insurance Providers Payer Name Payer Address Payer Phone Subscriber Number Group Number Insured Name Patient Relationship to Insured Coverage Start Date Coverage End Date [employer] [place] Medicare Advantage [address] [place] [address] [phone] [id number] Tiffany Guadarrama Self - patient is the insured Medical (General) History Medical History History ICD Code Back,Hip,and Knee pain Cholesterol Cataracts type II diabetes High blood pressure Neuropathy Measles Mumps Chicken pox Joint implants/screws Arthritis Numbness Surgical History Surgery Date(Month/Year) back surgery 1989 rotator cuff, right 2002 right knee arthroscopy 2007 retinectomy, left eye [id number] HT R2nd toe 05/22/2017 shoulder replacement 2022 bladder surgery 2020
--- OUTSIDE RECORDS SUMMARY | 2025-09-13 09:30 | XMS_ITS | Patient Health Record ---
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 Name Role Phone RYLAND BELLO PA-C Primary Care Provider Lasha Pate Unavailable [phone] Reason For Referral No Information Medications Medication [...] Problem Screening for malignant neoplasm of colon (387616659) Encounter for screening for malignant neoplasm of colon (Z12.11) Active confirmed Problem Preprocedural examination (564410909874050) Preprocedural examination (Z01.818) Active confirmed Plan Of Treatment Future Test Test Name Order Date COLONOSCOPY 02/07/2017 Insurance Providers Payer Name Payer Address Payer Phone Subscriber Number Group Number Insured Name Patient Relationship to Insured Coverage Start Date Coverage End Date [facility] [address] [place] [phone] [id number] BEATRICE LORD Self - patient is the insured Medical (General) History Medical History History ICD Code NIDDN Hypertension Denies CA,,CVA,Lung disease,renal diseas e Seasonal allergies Screening colonoscopy in 2006--hyperplastic polyp, sigmoid diverticulosis, internal hemorrhoids Surgical History Surgery Date(Month/Year) TUBAL LIGATION 1979 BACK SURGERY L5 1989 RIGHT ROTATOR CUFF 2003 RIGHT KNEE ARTHROSCOPIC 2007 VITRECTOMY LEFT EYE X2 2009 RETINECTOMY LEFT EYE X2 2010
== END 2025-09-13 08:17 | disposition home or self-care (01) ==
LOC: HO.HMCSH 08:05
PROVIDERS: PCP Physician Assistant Medical; Visit Provider Internal Medicine
DX: J06.9 Acute upper respiratory infection, unspecified (principal)

== ENCOUNTER → 2025-09-13 08:05 | Outpatient (BNVA) | payer MEDICARE, SELFPAY | PROVIDERS: PCP Physician Assistant Medical; Visit Provider Internal Medicine | DX: J06.9 Acute upper respiratory infection, unspecified (principal); Z79.82 Long term (current) use of aspirin; Z79.85 Long-term (current) use of injectable non-insulin antidiabetic drugs; Z79.84 Long term (current) use of oral hypoglycemic drugs; Z79.899 Other long term (current) drug therapy | CPT/HCPCS: 96127; 99212 ==